=== PATIENT | female | born 1935 | race Caucasian/White ===

== ENCOUNTER 2016-10-29 10:45 | Emergency (ER) | payer OTHER ==
[~2016-10-29] VITALS: Ht 160 cm; Wt 81.6 kg
[~2016-10-29 10:45] MED LIST: ACET1TAB34 PO; ALPR0.25 PO; AMLO5TAB4 PO; ASPI325T4 PO; Bupropion Hcl PO; CARV3.122 PO; CARV6.25 PO; CYCL5TAB PO; DONE10TA7 PO; DONE5TAB31 PO; GLIP10TA13 PO; GLIP2.5T3 PO; GLIP5TAB10 PO; IBUP800T PO; LISI10TA2 PO; LORA-448 PO; METF10002 PO; NITR100C58 PO; OLAN5TAB5 SL; OMEP20TA PO; PIOG30TA PO; RISP2TAB3 PO; SIMV20TA PO; SITA100T PO; TRAZ50TA18 PO; [UNRECOGNIZED DRUG - CODE] PO
--- NOTE | 2016-10-29 11:08 | NUR ---
RAD PT TO RAD VIA STRETCHER
--- NOTE | 2016-10-29 11:18 | NUR ---
RAD PT BACK FROM CT
--- NOTE | 2016-10-29 11:22 | NUR ---
PAIN PT C/O PAIN ON HER LEFT SIDE. DR. BURCIAGA INFORMED. NO NEW ORDERS RECEIVED
--- NOTE | 2016-10-29 11:34 | DIREP ---
PROCEDURE:CT HEAD OR BRAIN W/O CONTRAST COMPARISON:[facility], CT, CT HEAD BRAIN W/O CONTRAST, 06/05/2016, 11:15 AM. INDICATIONS:head injury TECHNIQUE:CT images were created without intravenous contrast. FINDINGS: VENTRICLES:There is moderate prominence of the ventricles and cortical sulci consistent with age related involutional changes. CEREBRUM:There are low density changes in the periventricular white matter. CEREBELLUM:Negative. BRAINSTEM:Negative. BASAL CISTERNS:Negative. HEMORRHAGE:No MASS LESION:No ACUTE INFARCT:No SKULL:Normal. SINUSES:Normal. OTHER:None CONCLUSION: 1. No acute abnormalities. 2. Cerebral atrophy. 3. Microvascular ischemic white matter changes. Dictated by: Coy Davis M.D. on 10/29/2016 at 11:31 AM
--- NOTE | 2016-10-29 11:39 | DIREP ---
PROCEDURE:CT CERVICAL SPINE WITHOUT CONTRAST TECHNIQUE:Axial cuts were obtained through the cervical spine. The images were viewed at bone and soft tissue settings. Sagittal and coronal reconstructions are provided. COMPARISON:None. INDICATIONS:trauma FINDINGS: ALIGNMENT:Normal. VERTEBRAE:Vertebral body heights are normal. PARASPINAL AREA:Normal. OTHER:No additional findings. CERVICAL DISC LEVELS C2-C3:Normal. C3-C4:Mild hypertrophic changes of the facet joints. C4-C5:Prominent hypertrophic changes of the left uncovertebral and facet joints with severe neural foraminal narrowing. C5-C6:Mild decreased disc height and large anterior osteophytes. Moderate central disc protrusion. C6-C7:Moderate decreased disc height and large anterior osteophytes. C7-T1:Normal. CONCLUSION:No acute cervical spine abnormalities. Degenerative changes as described above. Dictated by: Coy Davis M.D. on 10/29/2016 at 11:34 AM
--- NOTE | 2016-10-29 11:43 | ER.PDOC ---
General Chief Complaint: Trauma Stated Complaint: FALL Time seen by MD: 11:15 Source: patient History of Present Illness Occurred: just prior to arrival Where: home Severity: moderate Injuries/Pain Location: head, neck, other ("pain all over") Context: Tripped Loss of Consciousness: No Loss of Consciousness Associated Symptoms: denies symptoms Allergies: Coded Allergies: No Known Allergies (Unverified , 07/01/16) MEDS Active Scripts Omeprazole 20 Mg Tablet.dr20 Mg PO DAILY ulcer prevention #30 TAB Ref 3 Prov:ADONAY VIERA MD 07/11/16 Nitrofurantoin Monohyd/M-Cryst (Macrobid 100 Mg Capsule)100 Mg [id number] Mg PO DAILY UTI suppression #90 CAPSULE Ref 1 Prov:ADONAY VIERA MD 07/11/16 Trazodone Hcl 50 Mg Iamuzs002 Mg PO HS #30 TABLET Prov:MARGO URBANO MD 07/11/16 Olanzapine (Zyprexa Zydis)5 Mg Tab.zprmuh99 Mg SL HS #30 Prov:MARGO URBANO MD 07/11/16 Donepezil Hcl (Aricept)5 Mg Xtrrif70 Mg PO HS #30 TABLET Prov:MARGO URBANO MD 07/11/16 Lisinopril 10 Mg Qaqvjm94 Mg PO DAILY HTN #30 TABLET Prov:ADONAY VIERA MD 06/22/16 Carvedilol 3.125 Mg Tablet3.125 Mg PO BID HTN #30 TABLET Prov:ADONAY VIERA MD 06/22/16 Amlodipine Besylate (Norvasc)5 Mg Tablet5 Mg PO DAILY HTN #30 TABLET Prov:ADONAY VIERA MD 06/22/16 Reported Medications Sitagliptin Phosphate (Januvia)100 Mg Tablet1 Tab PO DAILY #30 TAB Ref 5 09/18/16 Glipizide 5 Mg Tablet2.5 Mg PO BIDAC 09/18/16 Ibuprofen 800 Mg Tablet1 Tab PO Q8HR PRN PAIN #90 TAB Ref 1 06/07/16 Past Medical History Medical History: coronary artery disease, diabetes, GERD, hypertension Surgical History: cardiac cath, appendectomy, LMP (females 10-50): postmenopause Social History Smoking: non-smoker Alcohol Use: none Drug Use: none Review of Systems Constitutional: no symptoms reported Eyes: no symptoms reported Ears, Nose, Mouth, Throat: no symptoms reported Respiratory: no symptoms reported Cardiovascular: no symptoms reported Gastrointestinal: no symptoms reported Genitourinary: no symptoms reported Musculoskeletal: no symptoms reported Skin: no symptoms reported Physical Exam General Appearance: No Apparent Distress, WD/WN Head: Lacerations (over right eye) Eyes: bilateral eye PERRL, bilateral eye normal inspection Ears, Nose, Mouth, Throat: Hearing Grossly Normal Neck: Non-Tender Cardiovascular/Respiratory: Regular Rate, Rhythm, No M/R/G, Normal Peripheral Pulses Gastrointestinal: Normal Bowel Sounds Genital/Rectal: Normal Genital Exam Back: No CVA Tenderness, Other (tender all over, nothing focal and likely not new. 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 NML as Tested, No Motor/Sensory Deficits, Alert Skin: Normal Color Laceration/Wound Repair Laceration/Wound Repair : Wound Location: left eye/eyebrow Wound Length (cm): 4 Wound cleaned: hibiclens Anesthesia type: local Anesthesia: Lidocaine w/ Epi Wound's Depth, Shape: linear Wound Explored: clean Wound Repaired With: sutures Suture Size/Type: 5:0 Suture Style: interupted Number of Sutures: 5 Layer Closure?: No Results/Orders Results/Orders Administered Medications Medications (Trade) Dose Ordered Sig/Walker Route PRN Reason Start Time Stop Time Status Last Admin Dose Admin Tetanus/ Diphtheria Toxoids (Tetanus Diphtheria Toxoids) 0.5 ml STAT STAT IM 10/29/16 12:01 10/29/16 12:02 DC 10/29/16 11:50 Departure Time of Disposition: 12:16 Disposition: 01 HOME, SELF-CARE Impression: Primary Impression: Head injury Qualified Code: S09.90XA - Unspecified injury of head, initial encounter Additional Impressions: Cervical strain, acute Qualified Code: S16.1XXA - Strain of muscle, fascia and tendon at neck level, initial encounter Contusion, knee Qualified Code: S80.00XA - Contusion of unspecified knee, initial encounter Laceration of face Qualified Code: S01.81XA - Laceration without foreign body of other part of head, initial encounter Condition: Stable Referrals: EDENILSON HOUSTON MD (PCP) PRIMARY CARE PROVIDER DANNA BURCIAGA MD October 29, 2016 11:42
--- NOTE | 2016-10-29 11:45 | NUR ---
WOUND CARE INNER RIGHT EYE LACERATION CLEANSED WITH BETADINE AND IRRIGATED WITH NS, PT TOLERATED WELL. RIGHT OUTTER EYE LACERSTION CLEANSED WITH BETADINE.
[2016-10-29] MEDS ORDERED: XYLOCAINE 1%-EPI 1:100,000 ONE (11:46)
[2016-10-29] MEDS ORDERED: TRIPLE ANTIBIOTIC OINTMENT TP ONE (11:49)
[2016-10-29] MEDS ORDERED: TETANUS DIPHTHERIA TOXOIDS IM ONE (11:50)
[2016-10-29] MEDS ORDERED: TETANUS DIPHTHERIA TOXOIDS IM STA (12:01)
--- NOTE | 2016-10-29 12:05 | NUR ---
WOUND REPAIR DR BURCIAGA AT BEDSIDE INJECTED LIDOCIANE 1% WITH EPI TO INNER EYE 3CM LACERATION, 1CM OUTTER EYE LACERATION . WOUND REPAIR DONE WITH PROLENE 5.
--- NOTE | 2016-10-29 12:14 | NUR ---
DRESSING NEOSPORIN APPLIED TO LACERATIONS, COVERED WITH 4X4 AND SECURED WITH TAPE
[2016-10-29] MEDS ORDERED: ULTRAM ONE (12:16)
[2016-10-29] MEDS ORDERED: ULTRAM PO STA (12:18)
[2016-10-29 12:20] VITALS: BP 168/87
== END 2016-10-29 12:35 | disposition home or self-care (01) ==
LOC: EDUNIT# 10:45 → EDBD 10:45 → ER 10:45
DX: S01.112A Laceration without foreign body of left eyelid and periocular area, initial encounter (principal); S16.1XXA Strain of muscle, fascia and tendon at neck level, initial encounter; S80.00XA Contusion of unspecified knee, initial encounter; I25.10 Atherosclerotic heart disease of native coronary artery without angina pectoris; E11.9 Type 2 diabetes mellitus without complications; K21.9 Gastro-esophageal reflux disease without esophagitis; I10 Essential (primary) hypertension; Z95.818 Presence of other cardiac implants and grafts; Z79.899 Other long term (current) drug therapy; W01.0XXA Fall on same level from slipping, tripping and stumbling without subsequent striking against object, initial encounter; Y93.89 Activity, other specified; Y92.098 Other place in other non-institutional residence as the place of occurrence of the external cause; Y99.8 Other external cause status
CPT/HCPCS: 12013; 70450; 72125; 90471; 90714; 99285

== ENCOUNTER 2016-12-08 16:23 | Emergency (ER) | payer OTHER ==
[~2016-12-08] VITALS: Ht 160 cm; Wt 81.6 kg
--- NOTE | 2016-12-08 16:59 | ER.PDOC ---
General Chief Complaint: General Complaint Stated Complaint: LOW B/P,HIGH SUGAR,SLURRING WORDS Time seen by MD: 16:57 Source: family Exam Limitations: no limitations History of Present Illness Initial Comments No acting right. Confused. Character of AMS: confused Usually: orientedx3 Allergies: Coded Allergies: No Known Allergies (Unverified , 07/01/16) Home Meds Active Scripts Omeprazole (OMEPRAZOLE) 20 Mg Tablet.dr, 20 MG PO DAILY for ulcer prevention, # 30 TAB 3 Refills Prov:ADONAY VIERA MD 07/11/16 Nitrofurantoin Monohyd/M-Cryst (MACROBID 100 MG CAPSULE) 100 Mg Capsule, 100 MG PO DAILY for UTI suppression, #90 CAPSULE 1 Refill Prov:ADONAY VIERA MD 07/11/16 Trazodone Hcl (TRAZODONE HCL) 50 Mg Tablet, 100 MG PO HS, #30 TABLET Prov:MARGO URBANO MD 07/11/16 Olanzapine (ZYPREXA ZYDIS) 5 Mg Tab.rapdis, 10 MG SL HS, #30 Prov:MARGO URBANO MD 07/11/16 Donepezil Hcl (ARICEPT) 5 Mg Tablet, 10 MG PO HS, #30 TABLET Prov:MARGO URBANO MD 07/11/16 Lisinopril (LISINOPRIL) 10 Mg Tablet, 10 MG PO DAILY for HTN, #30 TABLET Prov:ADONAY VIERA MD 06/22/16 Carvedilol (CARVEDILOL) 3.125 Mg Tablet, 3.125 MG PO BID for HTN, #30 TABLET Prov:ADONAY VIERA MD 06/22/16 Amlodipine Besylate (NORVASC) 5 Mg Tablet, 5 MG PO DAILY for HTN, #30 TABLET Prov:ADONAY VIERA MD 06/22/16 Reported Medications Sitagliptin Phosphate (JANUVIA) 100 Mg Tablet, 1 TAB PO DAILY, #30 TAB 5 Refills 09/18/16 Glipizide (GLIPIZIDE) 5 Mg Tablet, 2.5 MG PO BIDAC, TABLET 09/18/16 Ibuprofen (IBUPROFEN) 800 Mg Tablet, 1 TAB PO Q8HR Y for PAIN, #90 TAB 1 Refill 06/07/16 Past Medical History Medical History: diabetes, hypertension Surgical History: appendectomy, Social History Smoking: non-smoker Alcohol Use: none Drug Use: none Review of Systems Constitutional: no symptoms reported Respiratory: no symptoms reported Cardiovascular: no symptoms reported Gastrointestinal: no symptoms reported Genitourinary: no symptoms reported Musculoskeletal: no symptoms reported Psychiatric/Neurological: see HPI All Other Systems: Reviewed and Negative Physical Exam General Appearance: alert, no distress HEENT: no apparent trauma, EOM's intact, no nystagmus, PERRL, ENT inspection nml, pharynx nml, airway intact, oral exam nml Neuro/Psych: oriented x3, nml speech/cognition, nml mood/affect Cranial Nerves: nml as tested Peripheral Exam: motor nml, sensation nml, reflexes nml Neck: supple, non-tender, no carotid bruit Respiratory: no resp distress, breath sounds nml CVS: reg rate & rhythm, heart sounds nml Abdomen: non-tender, no organomegaly, no distention Skin: color nml, no rash, warm/dry Results/Orders Results/Orders Laboratory Tests Test 12/08/16 17:00 12/08/16 17:32 White Blood Count 6.9 10^3/uL (4.5-11.0) Red Blood Count 4.21 10^6/uL (4.00-5.20) Hemoglobin 12.9 g/dL (12.0-15.0) Hematocrit 37.2 % (36.0-46.0) Mean Corpuscular Volume 88.4 fL (78-100) Mean Corpuscular Hemoglobin 30.6 pg (26-34) Mean Corpuscular Hemoglobin Concent 34.7 g/dL (33-37) Red Cell Distribution Width 13.0 % (11.5-14.5) Platelet Count 154 10^3/uL (150-400) Mean Platelet Volume 12.0 fL (7.8-11.0) Neutrophils (%) (Auto) 67.6 % (41.0-85.0) Lymphocytes (%) (Auto) 24.5 % (24.0-44.0) Monocytes (%) (Auto) 6.5 % (5.0-12.0) Neutrophils # (Auto) 4.7 10^3/uL (1.8-7.7) Lymphocytes # (Auto) 1.7 10^3/uL (1.0-4.8) Monocytes # (Auto) 0.5 10^3/uL (0.3-0.8) Absolute Immature Granulocyte (auto 0.01 10^3 u/L (0-2) Eosinophils % 1.0 % (0.0-5.0) Basophils % 0.3 % (0.0-0.2) Basophils # 0.0 10^3/uL (0.0-0.1) Eosinophil Count 0.1 10^3/uL (0.0-0.2) Prothrombin Time 10.7 SEC (9.8-11.9) Prothromb Time International Ratio 1.0 Activated Partial Thromboplast Time 24.3 SEC (24.67-30.72) Sodium Level 137 mmol/L (132-145) Potassium Level 4.4 mmol/L (3.6-5.2) Chloride Level 104.0 mmol/L (96-109) Carbon Dioxide Level 23.8 mmol/L (20.0-32) Anion Gap 13.6 Blood Urea Nitrogen 12 mg/dL (7-18) Creatinine 1.16 mg/dL (0.59-1.40) Estimated GFR () 54.5 BUN/Creatinine Ratio 10.0 Glucose Level 292 mg/dL (70-110) Calculated Osmolality 294.2 Calcium Level 8.8 mg/dL (8.4-10.5) Total Bilirubin 0.3 mg/dL (0.2-1.0) Aspartate Amino Transf (AST/SGOT) 20 U/L (0-35) Alanine Aminotransferase (ALT/SGPT) 25 U/L (12-78) Alkaline Phosphatase 67 U/L (50-136) Total Creatine Kinase 108 U/L (26-192) Creatine Kinase MB 1.1 ng/mL (0.5-3.6) Troponin I < 0.02 ng/mL (0.00-0.05) Total Protein 7.0 g/dL (6.4-8.2) Albumin 3.5 g/dL (3.4-5.0) Globulin 3.5 Percent Immature Gran (Cell Imm) 0.10 % (0.00-0.50) Urine Collection Type Unknown Urine Color Yellow (YELLOW) Urine Appearance Slightly hazy (CLEAR) Urine Bilirubin Negative MG/DL (NEGATIVE) Urine Ketones Negative (NEGATIVE) Urine Specific [place] 1.015 (1.005-1.035) Urine pH 5 (5.0-6.0) Urine Protein 15 mg/dl (NEGATIVE) Urine Urobilinogen Normal (NEGATIVE) Urine Nitrate Negative (NEGATIVE) Urine Leukocyte Esterase 25 /ul trace (NEGATIVE) Urine Blood Negative (NEGATIVE) Urine RBC None seen RBC/HPF (NONE Urine WBC 2-5 WBC/HPF (0-2) Urine Squamous Epithelial Cells Few #/HPF (FEW) Urine Bacteria Few (NONE SEEN) Urine Glucose 50 (NEGATIVE) EKG/XRAY/CT/US XRAY: chest (Nothing acute) CT Comments: No acute intracranial abnormality Departure Time of Disposition: 17:55 Disposition: 01 HOME, SELF-CARE Impression: Primary Impression: UTI (urinary tract infection) Additional Impression: Dementia Condition: Stable Referrals: EDENILSON HOUSTON MD (PCP) PRIMARY CARE PROVIDER Additional Instructions: Continue Bactrim at home F/U with your PCP in 3-4 days Problem Qualifiers Primary Impression: UTI (urinary tract infection) Urinary tract infection type: site unspecified Hematuria presence: without hematuria Qualified Codes: N39.0 - Urinary tract infection, site not specified Additional Impression: Dementia Dementia type: unspecified type Dementia behavioral disturbance: without behavioral disturbance Qualified Codes: F03.90 - Unspecified dementia without behavioral disturbance GONZALES METCALF MD Dec 08, 2016 16:58
[2016-12-08 17:12] LABS: BASOPHIL % 0.3 % (0.0-0.2); EOSINOPHIL # 0.1 10^3/uL (0.0-0.2); HEMATOCRIT 37.2 % (36.0-46.0); HEMOGLOBIN 12.9 g/dL (12.0-15.0); LYMPHOCYTES # 1.7 10^3/uL (1.0-4.8); LYMPHOCYTES % 24.5 % (24.0-44.0); MEAN CELL HGB 30.6 pg (26-34); MEAN CELL HGB CONCENTRATION 34.7 g/dL (33-37); MEAN CORP VOLUME 88.4 fL (78-100); MONOCYTES # 0.5 10^3/uL (0.3-0.8); MONOCYTES % 6.5 % (5.0-12.0); NEUTROPHIL # 4.7 10^3/uL (1.8-7.7); NEUTROPHILS % 67.6 % (41.0-85.0); WHITE BLOOD CELL 6.9 10^3/uL (4.5-11.0)
[2016-12-08 17:38] LABS: BILIRUBIN,URINE NEGATIVE (NEGATIVE); UROBILINOGEN,URINE NORMAL (NEGATIVE)
[2016-12-08 17:39] LABS: ALANINE AMINOTRANSFERASE 25 U/L (12-78); ALKALINE PHOSPHATASE 67 U/L (50-136); ASPARTATE AMINO TRANSFERASE 20 U/L (0-35); CALCIUM 8.8 mg/dL (8.4-10.5); CARBON DIOXIDE 23.8 mmol/L (20.0-32); GLUCOSE 292 mg/dL (70-110)
--- NOTE | 2016-12-08 17:39 | DIREP ---
PROCEDURE:CHEST 1 VIEW COMPARISON:[facility], CR, XRAY CHEST SINGLE VW, 07/01/2016, 06:33 PM. INDICATIONS:AMS FINDINGS: LUNGS/PLEURA:Chronic interstitial changes. Shallow lung volumes. No confluent area of consolidation. No evidence of pleural effusion. VASCULATURE:Within normal limits. CARDIAC:No cardiomegaly. LINDA/MEDIASTINUM:No visible mass or adenopathy. BONES:No acute fracture. OTHER:No additional findings. CONCLUSION: 1. No acute cardiopulmonary changes. Dictated by: Bin Ray M.D. on 12/08/2016 at 05:37 PM
--- NOTE | 2016-12-08 17:41 | DIREP ---
PROCEDURE:CT HEAD OR BRAIN W/O CONTRAST COMPARISON:[facility], CT, CT HEAD BRAIN W/O CONTRAST, 10/29/2016, 11:09 AM. INDICATIONS:AMS TECHNIQUE:CT images were created without intravenous contrast. FINDINGS: VENTRICLES: There is generalized prominence of the ventricles, sulci, and cisterns. CEREBRUM: There is ill-defined low density in the white matter of both cerebral hemispheres. There is no CT evidence of mass, hemorrhage, or acute infarct. CEREBELLUM: Negative. BRAINSTEM: Negative. BASAL CISTERNS: Negative. SKULL: Negative. SINUSES: Negative. OTHER: None. CONCLUSION: 1. Generalized atrophy. 2. Chronic white matter ischemic change. 3. There is no CT evidence of intracranial mass, hemorrhage, or acute infarct. 4. There is no significant change as compared with the previous examination. Dictated by: Bin Ray M.D. on 12/08/2016 at 05:39 PM
[2016-12-08 17:47] LABS: APPEARANCE,URINE SLIGHTLY HAZY (CLEAR); UA COLOR YELLOW (YELLOW)
[2016-12-08 18:12] VITALS: BP 147/66
== END 2016-12-08 18:13 | disposition home or self-care (01) ==
LOC: ER 16:23
DX: F03.90 Unspecified dementia, unspecified severity, without behavioral disturbance, psychotic disturbance, mood disturbance, and anxiety (principal); N39.0 Urinary tract infection, site not specified; E11.9 Type 2 diabetes mellitus without complications; I10 Essential (primary) hypertension; R79.1 Abnormal coagulation profile; Z79.899 Other long term (current) drug therapy
CPT/HCPCS: 36415; 70450; 71010; 80053; 81000; 82550; 82553; 82948; 84484; 85025; 85610; 85730; 87086; 93005; 99285

== ENCOUNTER 2017-01-08 14:34 | Emergency (ER) | payer OTHER ==
[~2017-01-08] VITALS: Ht 160 cm; Wt 81.6 kg
--- NOTE | 2017-01-08 14:37 | NUR ---
ARRIVAL PATIENT ARRIVED TO ED2 VIA GURNEY BY [facility], C/O OF CHEST PAIN TODAY, HOME HEALTH TO SEE PATIENT AND SUGGESTED TO FAMILY TO BRING TO ED FOR FURTHER EVAL. NO DISTRESS NOTED, DENIES PAIN AT THIS TIME.
--- NOTE | 2017-01-08 14:53 | ER.PDOC ---
General Chief Complaint: Chest Pain-Cardiac Nature Stated Complaint: CP Time seen by MD: 14:51 Source: patient Exam Limitations: no limitations History of Present Illness Initial Comments Chest pain about 1-2 hours ago, no pain now. Did not take any Nitroglycerine. Pain subsided on its own. Severity/Quality: moderate, dull Radiation: no radiation Activities at Onset: none Nitro Today/Relief: No Nitro Taken Today Aspirin Today: 325 mg x 1, Provided By EMS Associated Symptoms: denies symptoms Allergies: Coded Allergies: No Known Allergies (Unverified , 07/01/16) Home Meds Active Scripts Omeprazole (OMEPRAZOLE) 20 Mg Tablet.dr, 20 MG PO DAILY for ulcer prevention, # 30 TAB 3 Refills Prov:ADONAY VIERA MD 07/11/16 Nitrofurantoin Monohyd/M-Cryst (MACROBID 100 MG CAPSULE) 100 Mg Capsule, 100 MG PO DAILY for UTI suppression, #90 CAPSULE 1 Refill Prov:ADONAY VIERA MD 07/11/16 Trazodone Hcl (TRAZODONE HCL) 50 Mg Tablet, 100 MG PO HS, #30 TABLET Prov:MARGO URBANO MD 07/11/16 Olanzapine (ZYPREXA ZYDIS) 5 Mg Tab.rapdis, 10 MG SL HS, #30 Prov:MARGO URBANO MD 07/11/16 Donepezil Hcl (ARICEPT) 5 Mg Tablet, 10 MG PO HS, #30 TABLET Prov:MARGO URBANO MD 07/11/16 Lisinopril (LISINOPRIL) 10 Mg Tablet, 10 MG PO DAILY for HTN, #30 TABLET Prov:ADONAY VIERA MD 06/22/16 Carvedilol (CARVEDILOL) 3.125 Mg Tablet, 3.125 MG PO BID for HTN, #30 TABLET Prov:ADONAY VIERA MD 06/22/16 Amlodipine Besylate (NORVASC) 5 Mg Tablet, 5 MG PO DAILY for HTN, #30 TABLET Prov:ADONAY VIERA MD 06/22/16 Reported Medications Sitagliptin Phosphate (JANUVIA) 100 Mg Tablet, 1 TAB PO DAILY, #30 TAB 5 Refills 09/18/16 Glipizide (GLIPIZIDE) 5 Mg Tablet, 2.5 MG PO BIDAC, TABLET 09/18/16 Ibuprofen (IBUPROFEN) 800 Mg Tablet, 1 TAB PO Q8HR Y for PAIN, #90 TAB 1 Refill 06/07/16 Past Medical History Medical History: cardiac problems, hypertension Surgical History: appendectomy, Social History Smoking: non-smoker Alcohol Use: none Drug Use: none Constitutional: no symptoms reported Respiratory: no symptoms reported Cardiovascular: see HPI Gastrointestinal: no symptoms reported Genitourinary: no symptoms reported Musculoskeletal: no symptoms reported Skin: no symptoms reported All Other Systems: Reviewed and Negative Physical Exam General Appearance: No Apparent Distress, WD/WN Neck: Non-Tender, Full Range of Motion, Supple, Normal Inspection Respiratory: chest non-tender, lungs clear, normal breath sounds, no respiratory distress, no accessory muscle use Cardiovascular: Normal Peripheral Pulses, Regular Rate, Rhythm, No Edema, No Gallop, No JVD, No Murmur Gastrointestinal: Normal Bowel Sounds, No Organomegaly, No Pulsatile Mass, Non Tender, Soft Extremities: Normal Range of Motion, Non-Tender, Normal Inspection, No Pedal Edema, No Calf Tenderness, Normal Capillary Refill 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 Voices no complaints. Spoke to Dr. Treadwell, no concerns at this willis, patient should be okay to go home. Second set of cardiac enzymes after 2 hours is unremarkable. EKG/XRAY/CT/US XRAY: chest (Nothing acute) Consult/PCP Time Consult/PCP Called: 16:04 Consult/PCP: Eben #2 EKG: NSR EKG Comments: Unchanged Course Blood Pressure Systolic: 121 Blood Pressure Diastolic: 71 Blood Pressure Mean: 88 Departure Time of Disposition: 16:05 Disposition: 01 HOME, SELF-CARE Impression: Primary Impression: Nonspecific chest pain Condition: Improved Referrals: EDENILSON TREADWELL MD (PCP) PRIMARY CARE PROVIDER Additional Instructions: F/U with your PCP in 2-3 days GONZALES METCALF MD Jan 08, 2017 14:53
[2017-01-08 15:02] LABS: BASOPHIL % 0.4 % (0.0-0.2); EOSINOPHIL # 0.2 10^3/uL (0.0-0.2); EOSINOPHIL % 2.4 % (0.0-5.0); HEMATOCRIT 38.2 % (36.0-46.0); HEMOGLOBIN 13.2 g/dL (12.0-15.0); LYMPHOCYTES # 1.9 10^3/uL (1.0-4.8); LYMPHOCYTES % 26.1 % (24.0-44.0); MEAN CELL HGB 30.7 pg (26-34); MEAN CELL HGB CONCENTRATION 34.6 g/dL (33-37); MEAN CORP VOLUME 88.8 fL (78-100); MEAN PLATELET VOLUME 11.8 fL (7.8-11.0); MONOCYTES # 0.7 10^3/uL (0.3-0.8); MONOCYTES % 10.2 % (5.0-12.0); NEUTROPHIL # 4.4 10^3/uL (1.8-7.7); NEUTROPHILS % 60.8 % (41.0-85.0); RED CELL DISTRIBUTION WIDTH 13.1 % (11.5-14.5); WHITE BLOOD CELL 7.2 10^3/uL (4.5-11.0)
[2017-01-08 15:41] LABS: ALANINE AMINOTRANSFERASE 22 U/L (12-78); ALKALINE PHOSPHATASE 64 U/L (50-136); ASPARTATE AMINO TRANSFERASE 21 U/L (0-35); CALCIUM 9.1 mg/dL (8.4-10.5); CARBON DIOXIDE 22.8 mmol/L (20.0-32); GLUCOSE 180 mg/dL (70-110)
--- NOTE | 2017-01-08 15:43 | DIREP ---
PROCEDURE:CHEST 1 VIEW COMPARISON:[facility], CR, XRAY CHEST SINGLE VW, 12/08/2016, 04:34 PM. INDICATIONS:Chest pain FINDINGS: LUNGS/PLEURA:Low lung volumes. Mild interstitial prominence is likely accentuated by the degree of inspiration. No suspicious airspace consolidation, pleural effusion or pneumothorax. VASCULATURE:Normal. Unremarkable pulmonary vasculature. CARDIAC:Normal. No cardiac silhouette abnormality or cardiomegaly. MEDIASTINUM:Mediastinal contours are within normal limits with calcifications of the aorta. BONES:Degenerative changes of the shoulders and spine. OTHER:Negative. CONCLUSION: 1. Low lung volumes. No acute cardiopulmonary abnormality. Dictated by: Richy Quiñonez M.D. On 01/08/2017 at 03:41 PM
--- NOTE | 2017-01-08 15:54 | NUR ---
DR CELSO MAYA ON PHONE WITH DR HOUSTON
[2017-01-08 18:26] VITALS: BP 186/87
== END 2017-01-08 18:20 | disposition home or self-care (01) ==
LOC: ER 14:34 → EDBD 14:34 → ER 18:20
DX: R07.9 Chest pain, unspecified (principal); I10 Essential (primary) hypertension; Z79.899 Other long term (current) drug therapy; Z79.1 Long term (current) use of non-steroidal anti-inflammatories (NSAID)
CPT/HCPCS: 36415; 71010; 80053; 82550; 82553; 83880; 84484; 85025; 85379; 85610; 85730; 93005; 99285

== ENCOUNTER 2017-03-01 12:21 | Emergency (ER) | payer OTHER ==
[~2017-03-01] VITALS: Ht 160 cm; Wt 78.9 kg
--- NOTE | 2017-03-01 12:41 | ER.PDOC ---
General Chief Complaint: General Complaint Stated Complaint: ALTERED MENTAL STATUS Time seen by MD: 12:40 History of Present Illness Initial Comments decreased loc dnr Timing/Duration: 1 hour Character of AMS: decreased responsiveness Context: chronic dementia Decreased Ability to Stand: weak Prior symptoms/Treatment: Similar symptoms previous Allergies: Coded Allergies: No Known Allergies (Unverified , 07/01/16) Home Meds Active Scripts Omeprazole (OMEPRAZOLE) 20 Mg Tablet.dr, 20 MG PO DAILY for ulcer prevention, # 30 TAB 3 Refills Prov:ADONAY VIERA MD 07/11/16 Nitrofurantoin Monohyd/M-Cryst (MACROBID 100 MG CAPSULE) 100 Mg Capsule, 100 MG PO DAILY for UTI suppression, #90 CAPSULE 1 Refill Prov:ADONAY VIERA MD 07/11/16 Trazodone Hcl (TRAZODONE HCL) 50 Mg Tablet, 100 MG PO HS, #30 TABLET Prov:MARGO URBANO MD 07/11/16 Olanzapine (ZYPREXA ZYDIS) 5 Mg Tab.rapdis, 10 MG SL HS, #30 Prov:MARGO URBANO MD 07/11/16 Donepezil Hcl (ARICEPT) 5 Mg Tablet, 10 MG PO HS, #30 TABLET Prov:MARGO URBANO MD 07/11/16 Lisinopril (LISINOPRIL) 10 Mg Tablet, 10 MG PO DAILY for HTN, #30 TABLET Prov:ADONAY VIERA MD 06/22/16 Carvedilol (CARVEDILOL) 3.125 Mg Tablet, 3.125 MG PO BID for HTN, #30 TABLET Prov:ADONAY VIERA MD 06/22/16 Amlodipine Besylate (NORVASC) 5 Mg Tablet, 5 MG PO DAILY for HTN, #30 TABLET Prov:ADONAY VIERA MD 06/22/16 Reported Medications Sitagliptin Phosphate (JANUVIA) 100 Mg Tablet, 1 TAB PO DAILY, #30 TAB 5 Refills 09/18/16 Glipizide (GLIPIZIDE) 5 Mg Tablet, 2.5 MG PO BIDAC, TABLET 09/18/16 Ibuprofen (IBUPROFEN) 800 Mg Tablet, 1 TAB PO Q8HR Y for PAIN, #90 TAB 1 Refill 06/07/16 Past Medical History Medical History: diabetes, hypertension Surgical History: appendectomy, LMP (females 10-50): postmenopause Family History Significant Family History: no pertinent family hx Social History Smoking: non-smoker Alcohol Use: none Drug Use: none Review of Systems Constitutional: denies fever All Other Systems: Reviewed and Negative Physical Exam General Appearance: lethargic Respiratory: no resp distress, breath sounds nml CVS: reg rate & rhythm, heart sounds nml Abdomen: non-tender, no organomegaly, no distention Skin: color nml, no rash, warm/dry Extremities: non-tender, nml ROM, no pedal edema Results/Orders Results/Orders Laboratory Tests Test 03/01/17 12:50 03/01/17 14:01 White Blood Count 7.6 10^3/uL (4.5-11.0) Red Blood Count 4.57 10^6/uL (4.00-5.20) Hemoglobin 13.6 g/dL (12.0-15.0) Hematocrit 39.9 % (36.0-46.0) Mean Corpuscular Volume 87.3 fL (78-100) Mean Corpuscular Hemoglobin 29.8 pg (26-34) Mean Corpuscular Hemoglobin Concent 34.1 g/dL (33-37) Red Cell Distribution Width 13.1 % (11.5-14.5) Platelet Count 137 10^3/uL (150-400) Mean Platelet Volume 12.1 fL (7.8-11.0) Neutrophils (%) (Auto) 55.0 % (41.0-85.0) Lymphocytes (%) (Auto) 30.7 % (24.0-44.0) Monocytes (%) (Auto) 10.2 % (5.0-12.0) Neutrophils # (Auto) 4.2 10^3/uL (1.8-7.7) Lymphocytes # (Auto) 2.3 10^3/uL (1.0-4.8) Monocytes # (Auto) 0.8 10^3/uL (0.3-0.8) Absolute Immature Granulocyte (auto 0.02 10^3 u/L (0-2) Eosinophils % 3.3 % (0.0-5.0) Basophils % 0.5 % (0.0-0.2) Basophils # 0.0 10^3/uL (0.0-0.1) Eosinophil Count 0.3 10^3/uL (0.0-0.2) Sodium Level 144 mmol/L (132-145) Potassium Level 3.9 mmol/L (3.6-5.2) Chloride Level 106.0 mmol/L (96-109) Carbon Dioxide Level 25.5 mmol/L (20.0-32) Anion Gap 16.4 Blood Urea Nitrogen 11 mg/dL (7-18) Creatinine 1.12 mg/dL (0.59-1.40) Estimated GFR () 56.8 (>/=60) BUN/Creatinine Ratio 9.0 Glucose Level 178 mg/dL (70-110) Calcium Level 9.1 mg/dL (8.4-10.5) Total Bilirubin 0.6 mg/dL (0.2-1.0) Aspartate Amino Transf (AST/SGOT) 23 U/L (0-35) Alanine Aminotransferase (ALT/SGPT) 32 U/L (12-78) Alkaline Phosphatase 69 U/L (50-136) Total Protein 7.4 g/dL (6.4-8.2) Albumin 3.3 g/dL (3.4-5.0) Globulin 4.1 Percent Immature Gran (Cell Imm) 0.30 % (0.00-0.50) Urine Collection Type UNKNOWN Urine Color YELLOW (YELLOW) Urine Appearance CLEAR (CLEAR) Urine Bilirubin NEGATIVE MG/DL (NEGATIVE) Urine Ketones NEGATIVE (NEGATIVE) Urine Specific [place] 1.015 (1.005-1.035) Urine pH 6 (5.0-6.0) Urine Protein NEGATIVE (NEGATIVE) Urine Urobilinogen NORMAL (NEGATIVE) Urine Nitrate NEGATIVE (NEGATIVE) Urine Leukocyte Esterase NEGATIVE (NEGATIVE) Urine Blood NEGATIVE (NEGATIVE) Urine Glucose NORMAL (NEGATIVE) Progress Progress labs wnl Departure Time of Disposition: 15:06 Disposition: 01 HOME, SELF-CARE Impression: Primary Impression: Abdominal pain Condition: Stable Referrals: EDENILSON HOUSTON MD (PCP) PRIMARY CARE PROVIDER JEREMY SAMSON Dr., MD Mar 01, 2017 12:41
[2017-03-01 12:55] LABS: BASOPHIL % 0.5 % (0.0-0.2); EOSINOPHIL # 0.3 10^3/uL (0.0-0.2); EOSINOPHIL % 3.3 % (0.0-5.0); HEMOGLOBIN 13.6 g/dL (12.0-15.0); LYMPHOCYTES # 2.3 10^3/uL (1.0-4.8); LYMPHOCYTES % 30.7 % (24.0-44.0); MEAN CELL HGB 29.8 pg (26-34); MEAN CELL HGB CONCENTRATION 34.1 g/dL (33-37); MEAN CORP VOLUME 87.3 fL (78-100); MEAN PLATELET VOLUME 12.1 fL (7.8-11.0); MONOCYTES # 0.8 10^3/uL (0.3-0.8); MONOCYTES % 10.2 % (5.0-12.0); NEUTROPHIL # 4.2 10^3/uL (1.8-7.7); RED CELL DISTRIBUTION WIDTH 13.1 % (11.5-14.5); WHITE BLOOD CELL 7.6 10^3/uL (4.5-11.0)
[2017-03-01 13:18] LABS: CALCIUM 9.1 mg/dL (8.4-10.5); CARBON DIOXIDE 25.5 mmol/L (20.0-32)
[2017-03-01 14:31] LABS: BILIRUBIN,URINE NEGATIVE (NEGATIVE); UROBILINOGEN,URINE NORMAL (NEGATIVE)
[2017-03-01 14:32] LABS: APPEARANCE,URINE CLEAR (CLEAR); UA COLOR YELLOW (YELLOW)
[2017-03-01 16:19] VITALS: BP 149/69
== END 2017-03-01 15:25 | disposition home or self-care (01) ==
LOC: ER 12:21 → EDBD 12:21 → ER 15:25
DX: R10.9 Unspecified abdominal pain (principal); E11.9 Type 2 diabetes mellitus without complications; F03.90 Unspecified dementia, unspecified severity, without behavioral disturbance, psychotic disturbance, mood disturbance, and anxiety; I10 Essential (primary) hypertension; Z79.899 Other long term (current) drug therapy
CPT/HCPCS: 36415; 80053; 81002; 85025; 93005; 99285

== ENCOUNTER → 2017-03-28 | Outpatient (CLI) | payer OTHER ==
--- NOTE | 2017-03-28 14:30 | DIREP ---
PROCEDURE:XR BARIUM SWALLOW - MODIFIED COMPARISON:None. INDICATIONS: Dysphagia TECHNIQUE:A comprehensive fluoroscopic examination of swallowing was performed, utilizing a variety of barium consistencies. FINDINGS: ORAL PHASE:Normal. PHARYNGEAL PHASE:Mild residue was seen in the vallecula which cleared with repeat swallows. ASPIRATION:No penetration or aspiration was observed throughout the study. OTHER:Negative. FLUORO TIME: 2.6 minutes CONCLUSION:There are findings consistent with mild oropharyngeal dysphagia. No penetration or aspiration was observed throughout the study. Please also refer to speech pathology report. Dictated by: Christian Keenan M.D. on 03/28/2017 at 02:43 PM
== END | disposition home or self-care (01) ==
LOC: RAD 17:19
PROVIDERS: ATTEND Internal Medicine
DX: R13.12 Dysphagia, oropharyngeal phase (principal)
CPT/HCPCS: 74230; 92611; G8996-CI; G8997-CI; G8998-CI

== ENCOUNTER → 2017-05-02 | Outpatient (CLI) | payer OTHER ==
[~2017-05-02] MED LIST changes: +ASPI325T14 PO; -ASPI325T4 PO; -DONE5TAB31 PO; +DONE5TAB53 PO; +IBUP-1131 PO; -IBUP800T PO; -OMEP20TA PO; +OMEP20TA9 PO; -PIOG30TA PO; +PIOG30TA27 PO
[2017-05-02 13:46] LABS: BILIRUBIN,URINE NEGATIVE (NEGATIVE); UROBILINOGEN,URINE NORMAL (NEGATIVE)
[2017-05-02 13:48] LABS: APPEARANCE,URINE HAZY (CLEAR); UA COLOR STRAW (YELLOW)
== END | disposition home or self-care (01) ==
LOC: NPLAB 13:22
PROVIDERS: ATTEND Internal Medicine
DX: R82.90 Unspecified abnormal findings in urine (principal)
CPT/HCPCS: 81000; 87086

== ENCOUNTER 2017-05-26 21:07 | Emergency (ER) | payer OTHER ==
[~2017-05-26] VITALS: Ht 160 cm; Wt 86.2 kg
[2017-05-26] MEDS ORDERED: INSU100V13 SQ (21:29)
[2017-05-26] MEDS ORDERED: EXEN2VIA SQ (21:29)
--- NOTE | 2017-05-26 21:42 | ER.PDOC ---
General Chief Complaint: General Complaint Stated Complaint: LOW BP TRAVEL OUT OF US: No Time seen by MD: 21:30 Source: family Exam Limitations: no limitations History of Present Illness Initial Comments 81 year old white male with history of hypertension was brought in by daughter as blood pressure tonight registered at 117/65 and HR of 63. Daughter is concerned of hypotension. No other symptoms except for self limiting chest heaviness. No chest pain Timing/Duration: 1/2 hour Associated Symptoms: denies symptoms Allergies: Coded Allergies: No Known Allergies (Unverified , 07/01/16) Home Meds Active Scripts Omeprazole (OMEPRAZOLE) 20 Mg Tablet.dr, 20 MG PO DAILY for ulcer prevention, # 30 TAB 3 Refills Prov:ADONAY VIERA MD 07/11/16 Trazodone Hcl (TRAZODONE HCL) 50 Mg Tablet, 100 MG PO HS, #30 TABLET Prov:MAGRO URBANO MD 07/11/16 Olanzapine (ZYPREXA ZYDIS) 5 Mg Tab.rapdis, 10 MG SL HS, #30 Prov:MARGO URBANO MD 07/11/16 Donepezil Hcl (ARICEPT) 5 Mg Tablet, 10 MG PO HS, #30 TABLET Prov:MARGO URBANO MD 07/11/16 Lisinopril (LISINOPRIL) 10 Mg Tablet, 10 MG PO DAILY for HTN, #30 TABLET Prov:ADONAY VIERA MD 06/22/16 Carvedilol (CARVEDILOL) 3.125 Mg Tablet, 3.125 MG PO BID for HTN, #30 TABLET Prov:ADONAY VIERA MD 06/22/16 Reported Medications Exenatide Microspheres (BYDUREON) 2 Mg Vial, 2 MG SQ WEEKLY, VIAL 05/26/17 Insulin Detemir (LEVEMIR) 100 Unit/1 Ml Vial, 20 UNIT SQ HS, VIAL 05/26/17 Ibuprofen (IBUPROFEN) 800 Mg Tablet, 1 TAB PO Q8HR Y for PAIN, #90 TAB 1 Refill 06/07/16 Discontinued Reported Medications Sitagliptin Phosphate (JANUVIA) 100 Mg Tablet, 1 TAB PO DAILY, #30 TAB 5 Refills 09/18/16 Glipizide (GLIPIZIDE) 5 Mg Tablet, 2.5 MG PO BIDAC, TABLET 09/18/16 Discontinued Scripts Nitrofurantoin Monohyd/M-Cryst (MACROBID 100 MG CAPSULE) 100 Mg Capsule, 100 MG PO DAILY for UTI suppression, #90 CAPSULE 1 Refill Prov:ADONAY VIERA MD 07/11/16 Amlodipine Besylate (NORVASC) 5 Mg Tablet, 5 MG PO DAILY for HTN, #30 TABLET Prov:ADONAY VIERA MD 06/22/16 Past Medical History Medical History: diabetes, other (dementia) Surgical History: appendectomy, LMP (females 10-50): postmenopause Social History Smoking: non-smoker Alcohol Use: none Drug Use: none Review of Systems Constitutional: denies no symptoms reported, denies see HPI, denies chills, denies diaphoresis, denies fever, denies malaise, denies weakness, denies other EENTM: no symptoms reported Respiratory: denies no symptoms reported, denies see HPI, denies cough, denies orthopnea, denies shortness of breath, denies stridor, denies wheezing, denies other Cardiovascular: see HPI Gastrointestinal: denies no symptoms reported, denies see HPI, denies abdominal pain, denies constipation, denies diarrhea, denies nausea, denies vomiting, denies other Genitourinary: denies no symptoms reported, denies see HPI, denies discharge, denies dysuria, denies frequency, denies hematuria, denies pain, denies other Musculoskeletal: denies no symptoms reported, denies see HPI, denies back pain , denies gout, denies joint pain, denies joint swelling, denies muscle pain, denies muscle stiffness, denies neck pain, denies other Skin: denies no symptoms reported, denies see HPI, denies change in color, denies change in hair/nails, denies dryness, denies lesions, denies lumps, denies rash, denies other Psychiatric/Neurological: other (dementia) Hematologic/Lymphatic: denies no symptoms reported, denies see HPI, denies anemia, denies blood clots, denies easy bleeding, denies easy bruising, denies swollen glands, denies other Physical Exam General Appearance: No Apparent Distress, WD/WN EENT: eyes nml inspection, nml ENT inspection, pharynx nml Neck: Non-Tender, Full Range of Motion, Supple, Normal Inspection Respiratory: chest non-tender, lungs clear, normal breath sounds CVS: reg rate & rhythm, no murmur Gastrointestinal: Normal Bowel Sounds Rectal: Normal Exam Extremities: Normal Range of Motion Skin: Normal Color Course Blood Pressure Systolic: 167 Blood Pressure Diastolic: 103 Blood Pressure Mean: 124 Departure Time of Disposition: 21:41 Impression: Primary Impression: Essential (primary) hypertension Condition: Stable Referrals: ADONAY VIERA MD (PCP) PRIMARY CARE PROVIDER Additional Instructions: Educated daughter about the normal bp range RTER prn Follow up PCP watch salt intake JANNET WALTERS MD May 26, 2017 21:42
--- NOTE | 2017-05-26 21:49 | PCM.EKG ---
[facility] Test Date: 2017-05-26 Test Time: 21:21:22 Pat Name: TENZIN CHURCH Department: Room: Gender: F Hand Icer: STEW : 1935 Requested By: JANNET WALTERS Order Number: [id number] Reading MD: Stevie Bravo Measurements Intervals [place] Rate: 67 P: 66 ID: [id number] QRS: 14 QRSD: 86 T: 79 QT: 398 QTc: 420 Interpretive Statements Normal sinus rhythm Low voltage QRS Borderline ECG No previous ECG available for comparison Electronically Signed On 05-27-2017 10:04:21 CHUCK WAGON DRIVER by Stevie Bravo Please click the below link to view image of tracing.
[2017-05-26 22:13] VITALS: BP 157/72
== END 2017-05-26 22:00 ==
LOC: ER 21:07
DX: I10 Essential (primary) hypertension (principal); E11.9 Type 2 diabetes mellitus without complications; F03.90 Unspecified dementia, unspecified severity, without behavioral disturbance, psychotic disturbance, mood disturbance, and anxiety; Z79.4 Long term (current) use of insulin; Z79.899 Other long term (current) drug therapy
CPT/HCPCS: 93005; 99283

== ENCOUNTER → 2017-06-07 | Outpatient (CLI) | payer OTHER ==
[~2017-06-07] MED LIST changes: +EXEN2VIA SQ; +INSU100V13 SQ
[2017-06-07 11:18] LABS: BILIRUBIN,URINE NEGATIVE (NEGATIVE); UROBILINOGEN,URINE NORMAL (NEGATIVE)
[2017-06-07 11:44] LABS: APPEARANCE,URINE CLEAR (CLEAR); UA COLOR YELLOW (YELLOW)
== END | disposition home or self-care (01) ==
LOC: NPLAB 11:03
PROVIDERS: ATTEND Internal Medicine
DX: N39.0 Urinary tract infection, site not specified (principal)
CPT/HCPCS: 81000; 87086

== ENCOUNTER → 2017-06-07 | Outpatient (CLI) | payer MEDICARE, OTHER ==
--- NOTE | 2017-06-07 12:59 | DIREP ---
PROCEDURE:XRAY HUMERUS MIN 2 VWS-LT COMPARISON:None. INDICATIONS:PAIN IN LEFT ARM FINDINGS: BONES:Normal. JOINTS:Normal. SOFT TISSUES:Normal. OTHER:No additional findings. CONCLUSION:No acute radiographic abnormality. Dictated by: Mannie Garza M.D. on 06/07/2017 at 12:58 PM
--- NOTE | 2017-06-07 13:02 | DIREP ---
PROCEDURE:XRAY HIP MIN 2VW-LT COMPARISON:None. INDICATIONS:PAIN IN LEFT HIP FINDINGS: BONES:Subchondral acetabular sclerosis. JOINTS:Severe medial joint space loss. SOFT TISSUES:Normal. OTHER:No additional findings. CONCLUSION:Degenerative joint space loss. Dictated by: Mannie Garza M.D. on 06/07/2017 at 12:58 PM
== END | disposition home or self-care (01) ==
LOC: RAD 11:48
PROVIDERS: ATTEND Internal Medicine
DX: M16.12 Unilateral primary osteoarthritis, left hip (principal); M79.602 Pain in left arm; W19.XXXA Unspecified fall, initial encounter
CPT/HCPCS: 73502; 73060-LT

== ENCOUNTER 2017-07-26 22:07 | Emergency (ER) | payer OTHER ==
[~2017-07-26] VITALS: Ht 160 cm; Wt 72.6 kg
[2017-07-26 22:54] VITALS: BP 165/72
--- NOTE | 2017-07-26 23:38 | ER.PDOC ---
General Chief Complaint: Eye Problems Stated Complaint: R EYE ISSUE,L FOOT SWELLING Time seen by MD: 23:34 Source: patient Exam Limitations: no limitations History of Present Illness Initial Comments Blurry vision in the right eye today. Denies eye pain or discharge. left ankle looking swollen without pain. Timing/Duration: abrupt Associated Symptoms: decreased vision Location: right eye Severity: moderate Allergies: Coded Allergies: No Known Allergies (Unverified , 07/01/16) Home Meds Active Scripts Omeprazole (OMEPRAZOLE) 20 Mg Tablet.dr, 20 MG PO DAILY for ulcer prevention, # 30 TAB 3 Refills Prov:ADONAY VIERA MD 07/11/16 Trazodone Hcl (TRAZODONE HCL) 50 Mg Tablet, 100 MG PO HS, #30 TABLET Prov:MARGO URBANO MD 07/11/16 Olanzapine (ZYPREXA ZYDIS) 5 Mg Tab.rapdis, 10 MG SL HS, #30 Prov:MARGO URBANO MD 07/11/16 Donepezil Hcl (ARICEPT) 5 Mg Tablet, 10 MG PO HS, #30 TABLET Prov:MARGO URBANO MD 07/11/16 Lisinopril (LISINOPRIL) 10 Mg Tablet, 10 MG PO DAILY for HTN, #30 TABLET Prov:ADONAY VIERA MD 06/22/16 Carvedilol (CARVEDILOL) 3.125 Mg Tablet, 3.125 MG PO BID for HTN, #30 TABLET Prov:ADONAY VIERA MD 06/22/16 Reported Medications Exenatide Microspheres (BYDUREON) 2 Mg Vial, 2 MG SQ WEEKLY, VIAL 05/26/17 Insulin Detemir (LEVEMIR) 100 Unit/1 Ml Vial, 20 UNIT SQ HS, VIAL 05/26/17 Ibuprofen (IBUPROFEN) 800 Mg Tablet, 1 TAB PO Q8HR Y for PAIN, #90 TAB 1 Refill 06/07/16 Past Medical History Medical History: diabetes, GERD, hypertension Surgical History: appendectomy, LMP (females 10-50): postmenopause Social History Smoking: non-smoker Alcohol Use: none Drug Use: none Constitutional: no symptoms reported Eyes: see HPI Nose: no symptoms reported Mouth: no symptoms reported Throat: no symptoms reported Respiratory: no symptoms reported Cardiovascular: no symptoms reported Gastrointestinal: no symptoms reported Musculoskeletal: see HPI All Other Systems: Reviewed and Negative Physical Exam General Appearance: alert, no distress Visual Acuity: no globe trauma Eyelid: nml inspection Conjunctiva/Sclera: nml inspection Corneas: nml inspection EOM's: intact, no nystagmus Pupils: PERRL Head/ENT: nml inspection, pharynx nml Skin Exam: Normal Color, Warm/Dry Neck/Back: nml inspection, painless ROM Resp/CVS: no resp distress, lungs clear, heart sounds nml, reg. rate & rhythm Abdomen: non-tender, no organomegaly NEURO/PSYCH: oriented X3, mood/effect nml Comments Both ankles are normal. No swelling. Course Blood Pressure Systolic: 165 Blood Pressure Diastolic: 72 Blood Pressure Mean: 103 Departure Time of Disposition: 23:37 Disposition: 01 HOME, SELF-CARE Impression: Primary Impression: Blurred vision, right eye Condition: Stable Referrals: ADONAY VIERA MD (PCP) PRIMARY CARE PROVIDER Additional Instructions: F/U with Public Health Professor tomorrow. Duration or Time Spent with Pa: 30 mins GONZALES METCALF MD Jul 26, 2017 23:38
[2017-07-27 00:09] VITALS: BP 165/72
== END 2017-07-26 23:50 | disposition home or self-care (01) ==
LOC: ER 22:07
DX: H53.8 Other visual disturbances (principal); E11.9 Type 2 diabetes mellitus without complications; I10 Essential (primary) hypertension; K21.9 Gastro-esophageal reflux disease without esophagitis; Z79.4 Long term (current) use of insulin; Z79.899 Other long term (current) drug therapy
CPT/HCPCS: 99284

== ENCOUNTER 2017-08-04 14:30 | Inpatient (IN) | payer OTHER ==
[~2017-08-04] VITALS: Ht 160 cm; Wt 83.9 kg
[2017-08-04 15:02] VITALS: BP 148/65
--- NOTE | 2017-08-04 15:29 | ER.PDOC ---
General Chief Complaint: Medical Clearance Stated Complaint: MEDICAL CLEARANCE Time seen by MD: 15:28 Source: family Exam Limitations: clinical condition History of Present Illness Initial Comments Patient brought to the ED for medical clearance for psych admit. Patient confused. Going outside unclothed. Timing/Duration: unknown Character of AMS: disoriented, confused Usually: alert, disorient. to time Prior symptoms/Treatment: Similar symptoms previous Allergies: Coded Allergies: No Known Allergies (Unverified , 07/01/16) Home Meds Active Scripts Omeprazole (OMEPRAZOLE) 20 Mg Tablet.dr, 20 MG PO DAILY for ulcer prevention, # 30 TAB 3 Refills Prov:ADONAY VIERA MD 07/11/16 Trazodone Hcl (TRAZODONE HCL) 50 Mg Tablet, 100 MG PO HS, #30 TABLET Prov:MARGO URBANO MD 07/11/16 Olanzapine (ZYPREXA ZYDIS) 5 Mg Tab.rapdis, 10 MG SL HS, #30 Prov:MARGO URBANO MD 07/11/16 Donepezil Hcl (ARICEPT) 5 Mg Tablet, 10 MG PO HS, #30 TABLET Prov:MARGO URBANO MD 07/11/16 Lisinopril (LISINOPRIL) 10 Mg Tablet, 10 MG PO DAILY for HTN, #30 TABLET Prov:ADONAY VIERA MD 06/22/16 Carvedilol (CARVEDILOL) 3.125 Mg Tablet, 3.125 MG PO BID for HTN, #30 TABLET Prov:ADONAY VIERA MD 06/22/16 Reported Medications Exenatide Microspheres (BYDUREON) 2 Mg Vial, 2 MG SQ WEEKLY, VIAL 05/26/17 Insulin Detemir (LEVEMIR) 100 Unit/1 Ml Vial, 20 UNIT SQ HS, VIAL 05/26/17 Ibuprofen (IBUPROFEN) 800 Mg Tablet, 1 TAB PO Q8HR Y for PAIN, #90 TAB 1 Refill 06/07/16 Vital Signs First Vital Signs Date Time Temp Pulse Resp B/P (MAP) Pulse Ox O2 Delivery O2 Flow Rate FiO2 08/04/17 14:59 97.6 81 16 100 08/04/17 15:02 148/65 (92) Room Air Last Vital Signs Date Time Temp Pulse Resp B/P (MAP) Pulse Ox O2 Delivery O2 Flow Rate FiO2 08/04/17 15:02 97.6 81 16 148/65 (92) 100 Room Air Past Medical History Medical History: diabetes, hypertension Surgical History: appendectomy, LMP (females 10-50): postmenopause Social History Smoking: non-smoker Alcohol Use: none Drug Use: none Reviewed Nursing Reviewed: Vital Signs, Abn. Noted, Nursing Assessment Results/Orders Results/Orders Laboratory Tests Test 08/04/17 15:29 08/04/17 16:00 Urine Collection Type VOID Urine Color YELLOW (YELLOW) Urine Appearance CLEAR (CLEAR) Urine Bilirubin NEGATIVE MG/DL (NEGATIVE) Urine Ketones NEGATIVE (NEGATIVE) Urine Specific [place] 1.005 (1.005-1.035) Urine pH 7 (5.0-6.0) Urine Protein NEGATIVE (NEGATIVE) Urine Urobilinogen NORMAL (NEGATIVE) Urine Nitrate NEGATIVE (NEGATIVE) Urine Leukocyte Esterase 100/ul 1+ (NEGATIVE) Urine Blood NEGATIVE (NEGATIVE) Urine WBC 0-2 WBC/HPF (0-2) Urine Squamous Epithelial Cells RARE #/HPF (FEW) Urine Bacteria RARE (NONE SEEN) Urine Glucose NORMAL (NEGATIVE) Urine Opiates (GC/MS) NEGATIVE (NEGATIVE) Urine Amphetamine Qualitative NEGATIVE (NEGATIVE) Urine Barbiturates, Qualitative NEGATIVE (NEGATIVE) Urine Phencyclidine (PCP) (TLC) NEGATIVE (NEGATIVE) Urine Benzodiazepines, Qualitative NEGATIVE (NEGATIVE) Ur Tetrahydrocannabinol (THC) Scrn NEGATIVE (NEGATIVE) White Blood Count 8.8 10^3/uL (4.5-11.0) Red Blood Count 4.86 10^6/uL (4.00-5.20) Hemoglobin 14.0 g/dL (12.0-15.0) Hematocrit 43.6 % (36.0-46.0) Mean Corpuscular Volume 89.7 fL (78-100) Mean Corpuscular Hemoglobin 28.8 pg (26-34) Mean Corpuscular Hemoglobin Concent 32.1 g/dL (33-37) Red Cell Distribution Width 13.9 % (11.5-14.5) Platelet Count 190 10^3/uL (150-400) Mean Platelet Volume 12.2 fL (7.8-11.0) Neutrophils (%) (Auto) 64.6 % (41.0-85.0) Lymphocytes (%) (Auto) 26.4 % (24.0-44.0) Monocytes (%) (Auto) 7.7 % (5.0-12.0) Neutrophils # (Auto) 5.7 10^3/uL (1.8-7.7) Lymphocytes # (Auto) 2.3 10^3/uL (1.0-4.8) Monocytes # (Auto) 0.7 10^3/uL (0.3-0.8) Absolute Immature Granulocyte (auto 0.01 10^3 u/L (0-2) Eosinophils % 0.7 % (0.0-5.0) Basophils % 0.5 % (0.0-0.2) Basophils # 0.0 10^3/uL (0.0-0.1) Eosinophil Count 0.1 10^3/uL (0.0-0.2) Prothrombin Time 10.7 SEC (9.8-11.9) Prothrombin Time INR (Non-Therap) 1.1 Activated Partial Thromboplast Time 21.8 SEC (24.67-30.72) Sodium Level 143 mmol/L (132-145) Potassium Level 4.1 mmol/L (3.6-5.2) Chloride Level 106.0 mmol/L (96-109) Carbon Dioxide Level 25.9 mmol/L (20.0-32) Anion Gap 15.2 Blood Urea Nitrogen 13 mg/dL (7-18) Creatinine 1.07 mg/dL (0.59-1.40) Estimated GFR () 59.9 (>/=60) BUN/Creatinine Ratio 12.0 Glucose Level 141 mg/dL (70-110) Hemoglobin A1c 6.0 % (4.2-6.2) Calcium Level 9.2 mg/dL (8.4-10.5) Total Bilirubin 0.5 mg/dL (0.2-1.0) Aspartate Amino Transf (AST/SGOT) 23 U/L (0-35) Alanine Aminotransferase (ALT/SGPT) 22 U/L (12-78) Alkaline Phosphatase 72 U/L (50-136) Total Creatine Kinase 90 U/L (26-192) Creatine Kinase MB 0.7 ng/mL (0.5-3.6) Troponin I < 0.02 ng/mL (0.00-0.05) C-Reactive Protein 0.10 mg/dL (0.00-5.00) Pro-B-Type Natriuretic Peptide 141 pg/mL (0-450) Total Protein 7.6 g/dL (6.4-8.2) Albumin 3.5 g/dL (3.4-5.0) Globulin 4.1 Triglycerides Level 108 mg/dL (20-200) Cholesterol Level 221 mg/dL (120-240) HDL Cholesterol 44 mg/dL (32-96) Vitamin B12 Level 901 pg/mL (193-986) Thyroid Stimulating Hormone (TSH) 1.637 mIU/mL (0.358-3.740) Percent Immature Gran (Cell Imm) 0.10 % (0.00-0.50) EKG/XRAY/CT/US EKG: NSR, CA (150), QRS (86), nonspecific ST T wave chg EKG Comments: LAD, old Ant infarct Departure Time of Disposition: 20:00 Disposition: 09 ADMITTED INPATIENT Impression: Primary Impression: Acute confusion Condition: Stable Referrals: ADONAY VIERA MD (PCP) PRIMARY CARE PROVIDER Duration or Time Spent with Pa: JERICHO MCKNIGHT MD Aug 04, 2017 15:29
--- NOTE | 2017-08-04 15:59 | DIREP ---
PROCEDURE:CHEST 1 VIEW COMPARISON:[facility], CR, XRAY CHEST SINGLE VW, 01/08/2017, 02:43 PM. INDICATIONS:confusion FINDINGS: LUNGS/PLEURA:No significant pulmonary parenchymal abnormalities. No effusions. VASCULATURE:Normal. Unremarkable pulmonary vasculature. CARDIAC:Normal. No cardiac silhouette abnormality or cardiomegaly. MEDIASTINUM:Normal. No visible mass or adenopathy. BONES:Normal. No fracture or visible bony lesion. OTHER:Negative. CONCLUSION:Normal examination. There is no significant change as compared with the previous examination. Dictated by: Thiago Velazquez MD on 08/04/2017 at 03:58 PM
[2017-08-04 16:01] LABS: BASOPHIL % 0.5 % (0.0-0.2); EOSINOPHIL # 0.1 10^3/uL (0.0-0.2); EOSINOPHIL % 0.7 % (0.0-5.0); LYMPHOCYTES # 2.3 10^3/uL (1.0-4.8); LYMPHOCYTES % 26.4 % (24.0-44.0); MEAN CELL HGB 28.8 pg (26-34); MEAN CELL HGB CONCENTRATION 32.1 g/dL (33-37); MEAN CORP VOLUME 89.7 fL (78-100); MEAN PLATELET VOLUME 12.2 fL (7.8-11.0); MONOCYTES # 0.7 10^3/uL (0.3-0.8); MONOCYTES % 7.7 % (5.0-12.0); NEUTROPHIL # 5.7 10^3/uL (1.8-7.7); NEUTROPHILS % 64.6 % (41.0-85.0); RED CELL DISTRIBUTION WIDTH 13.9 % (11.5-14.5); WHITE BLOOD CELL 8.8 10^3/uL (4.5-11.0)
--- NOTE | 2017-08-04 16:01 | PCM.EKG ---
[facility] Test Date: 2017-08-04 Test Time: 16:00:58 Pat Name: TENZIN CHURCH Department: Room: 214 Gender: F Seasonal Package Handler: SANDHYA : 1935 Requested By: JERICHO JIMENEZ Order Number: [id number] Reading MD: Kirk METCALF Measurements Intervals [place] Rate: 68 P: 50 DC: 150 QRS: -40 QRSD: 86 T: 66 QT: 416 QTc: 442 Interpretive Statements Normal sinus rhythm Left axis deviation Anterolateral infarct, age undetermined Abnormal ECG Compared to ECG 05/26/2017 21:21:22 Left-axis deviation now present Myocardial infarct finding now present Electronically Signed On 08-06-2017 0:36:05 [employer]ES [employer] by Kirk METCALF Please click the below link to view image of tracing.
[2017-08-04 17:05] LABS: ALANINE AMINOTRANSFERASE(ML) 22 U/L (12-78); ALKALINE PHOSPHATASE 72 U/L (50-136); ASPARTATE AMINO TRANSFERASE 23 U/L (0-35); CALCIUM 9.2 mg/dL (8.4-10.5); CARBON DIOXIDE 25.9 mmol/L (20.0-32); CHOLESTEROL 221 mg/dL (120-240); GLUCOSE 141 mg/dL (70-110); HDL CHOLESTEROL 44 mg/dL (32-96)
[2017-08-04 17:48] LABS: APPEARANCE,URINE CLEAR (CLEAR); BILIRUBIN,URINE NEGATIVE (NEGATIVE); UA COLOR YELLOW (YELLOW); UROBILINOGEN,URINE NORMAL (NEGATIVE)
[2017-08-04 17:55] LABS: WBC,URINE 0-2 WBC/HPF (0-2)
--- NOTE | 2017-08-04 20:00 | NUR ---
Dispatch Spoke to PD dispatch to get in contact with the Ethnoarchaeology Professor to sign court documents
--- NOTE | 2017-08-04 20:20 | NUR ---
Marine Fitter Alis Marine Fitter Alis here to sign court papers
[2017-08-04 20:50] VITALS: BP 163/81
[2017-08-04] MEDS ORDERED: ZYPREXA ZYDIS SL STA (21:39)
[2017-08-04] MEDS ORDERED: DESYREL PO STA (21:40)
[2017-08-04] MEDS ORDERED: ARICEPT PO STA (21:41)
[2017-08-04] MEDS ORDERED: ARTIFICIAL TEARS BOTH EYES PRN (22:00)
--- NOTE | 2017-08-04 22:00 | NUR ---
arrival to unit PT. ARRIVED ON UNIT AT 2043 VIA W/C, ACCOMPANIED BY MARIA ANTONIA Turner CNA,PT.'S DAUGHTER DERRICK . PT. EXHIBITED HALLUCINATIONS HEARING MUSIC AND SEEING THINGS NOT THERE. ORIENTED TO NAME NOT YEAR OR MONTH. DR. GONZÁLES SKYPED WITH PT. AND DAUGHTER. DR. GREEN ON UNIT AND VISITED WITH PT. DR. GREEN STATED TO START ACCU CHECKS ,INSULIN AND THE OTHER MEDICATIONS HE ORDERED TOMORROW. PT. IS VERY [place]. HAS UNSTEADY GAIT AND DAUGHTER STATED SHE WILL BRING PT.'S DENTURES , WALKER AND CLOTHES TOMORROW.PT. ATE 90% OF DINNER MEAL THAT WAS PROVIDED. FLAT AFFECT. BED ALARM AND YELLOW NON SKID SOCKS IN USE AT THIS TIME. BED IN LOW POSITION. STAFF HAS WALKED WITH PT. WHEN AMBULATING. PT. HAS HX. OF FALLS AT HOME BUT DAUGHTER REPORTS SHE HAS NOT FALLEN RECENTLY.
--- NOTE | 2017-08-05 04:47 | NUR ---
PIRP- P-RISK FOR FALLS,ALTERED THOUGHT PROCESS I- PROVIDE SAFE AND SUPPORTIVE ENVIRONMENT, PROVIDE 1:1 INTERVENTION ALLOWING PT. TO EXPRESS THOUGHTS AND FEELINGS. PROVIDE MEDICATIONS ORDERED. R- PT. TOOK MEDICATION ORDERED, HAS RESTED IN BED WITH EYES CLOSED 1.50 HOURS OF THIS TIME. PT. HAS TALKED TO SOMEONE NOT THERE AT TIMES AND EXHIBITED SEEING THINGS THAT ARE NOT THERE.STAFF HAS WALKED WITH PT. WHEN SHE AMBULATES. P- WILL CONTINUE WITH CURRENT TX. PLAN.
--- NOTE | 2017-08-05 06:13 | NUR ---
FLU VACCINE PT.'S DAUGHTER STATES SHE DOESN'T KNOW IF PT. HAS HAD FLU VACCINE THIS FALL.
[2017-08-05] MEDS ORDERED: PROTONIX PO ONE (07:05)
[2017-08-05] MEDS ORDERED: THERA ONE (07:05)
[2017-08-05] MEDS ORDERED: ZYPREXA ZYDIS ONE ×2 (07:05→19:00)
[2017-08-05] MEDS ORDERED: COREG ONE (07:05)
[2017-08-05] MEDS ORDERED: ZESTRIL ONE (07:06)
[2017-08-05 07:46] VITALS: BP 172/81
[2017-08-05] MEDS: FLONASE NS SCH (09:04)
--- NOTE | 2017-08-05 09:06 | NUR ---
OT EVALUATION Information gathered from pt EMR to assist with evaluation process. Evaluation to be completed by Matt LR this date. Signed: 08/06/17 at 906 by LOLA Christina OT Addendum: 08/06/17 at 906 by LOLA Christina OT Amended: Links added.
[2017-08-05] MEDS: ZYPREXA ZYDIS SL SCH ×3 (09:07→21:04)
[2017-08-05] MEDS: COREG PO SCH ×3 (09:07→21:05)
[2017-08-05] MEDS: ZESTRIL PO SCH (09:07)
[2017-08-05] MEDS: THERA PO SCH (09:07)
[2017-08-05] MEDS: PROTONIX PO SCH (09:07)
--- NOTE | 2017-08-05 11:33 | CNH ---
DATE OF CONSULTATION: 08/04/2017 ADMITTING PHYSICIAN: Dr. Orellana in the [facility] REASON FOR CONSULTATION: Concurrent medical care. HISTORY OF PRESENT ILLNESS: The patient is a 81-year-old female who was brought in from home because she was having a psychotic episode and was running around naked in the neighborhood. Her daughter states that while she is on her medications she is calm and collected. However, there have been issues about getting her medications lately and she started to have increasing psychosis. When I saw her, she was sitting down, and I asked her if she had any pain anywhere. She denied any pain currently. The only thing that she complains about is her vision. She gets eye surgery from Dr. 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 No fevers, no chills, no cough. Her appetite has been fair. PAST MEDICAL HISTORY: Significant for dementia with behavioral disturbances, type 2 diabetes mellitus, hypertension, GERD and DJD. PAST SURGICAL HISTORY: , appendectomy. SOCIAL HISTORY: She does not smoke. No illicit drugs, no alcohol reported. FAMILY HISTORY: Asked and noncontributory for this admission. MEDICATIONS: She is on include omeprazole, Zydis, Aricept, lisinopril, carvedilol, Levemir and multivitamin. PHYSICAL EXAMINATION: VITAL SIGNS: On admission, temperature is 97.6, pulse rate 68, respirations 16, blood pressure 148/65, O2 sats of 100%. My physical exam is as follows: GENERAL: She is in no acute distress. She is smiling. She is pleasant to me. HEENT: Oropharynx is clear. NECK: Supple. HEART: S1, S2 audible. LUNGS: Clear bilaterally. ABDOMEN: Good bowel sounds, soft abdomen. NEUROLOGIC: She does stand up and she supports her own weight. She does walk around. DTRs are 2+ times 4 extremities. Intact sensation noted times 4 extremities. Motor strength is normal times 4 extremities. LABORATORY DATA: Labs were drawn. She had a CBC that was normal. Coags were normal. Chemistry panel looked good. TSH is 1.64. Vitamin B12 level is 901. Cardiac enzymes negative x 1. UA has had 1+ esterase, and rare bacteria. Urine drug screen was negative. IMAGING STUDIES: Chest x-ray did not show any acute abnormalities. ASSESSMENT: We have this elderly female with increasing dementia with behavioral disturbances with underlying diabetes, hypertension. I found out that she is on Amoxil every night for UTI prophylaxis and I will continue this. I will continue her home medications. Follow her sugars. She is a DNR and I will honor this in the hospital and have Psychiatry manage her psychosis. Kitty Conner MD DR: JESICA/jewel JOB# [id number]
--- NOTE | 2017-08-05 11:34 | NUR ---
AM SNACK NO SNACKS AVAILABLE. [employer] WAS CALLED TO BRING PER NEW POLICY. Addendum: 08/05/17 at 1135 by TIM Cota LVN Amended: Links added.
--- NOTE | 2017-08-05 15:08 | NUR ---
GMAS: 12/28 NO DEPRESSION Addendum: 08/06/17 at 1508 by Martha Ashley, JOVANY, FISH INSPECTOR SW Amended: Links added.
--- NOTE | 2017-08-05 15:09 | NUR ---
MMSE: 11/27 SEVERE IMPAIRMENT Addendum: 08/06/17 at 1509 by Martha Ashley, JOVANY, SUPERVISOR PIPELINE SW Amended: Links added.
--- NOTE | 2017-08-05 15:51 | NUR ---
SYMPTOMATOLOGY EVAL: PT PRESENTED TO ER WITH DAUGHTER DUE TO REPORTED HALLUCINATIONS, DELUSIONS, DISROBING AND GOING OUTSIDE AND TAKING BLANKETS TO THE CAR FOR UNKNOWN REASON. PT CURRENTLY LIVES HOME WITH DAUGHTER. RECOMMENDED INPATIENT TREATMENT ON THE CAUSEY [place] ON AN INVOLUNTARY STATUS AT THIS TIME. Addendum: 08/05/17 at 1554 by Martha Ashley, JOVANY, SYDNEY DIAZ Amended: Links added.
--- NOTE | 2017-08-05 15:57 | NUR ---
PIRP: P: ALTERED THOUGHT PROCESS. RISK FOR FALLS. I: Provide medications as ordered by physician and encourage patient to attend and participate in all groups. Encourage patient to wear non skid socks and let staff assist her with ambulation and transfers. Provide groups that require focus and concentration. Provide 1:1 allowing patient to voice concerns and feelings. R: Patient has taken all medications as ordered and has participated in all groups. This morning patient was singing to herself in her room and reaching for the ceiling as if hallucinating. P: Continue current plan of care.
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
[2017-08-05] MEDS ORDERED: DESYREL ONE (19:00)
[2017-08-05] MEDS ORDERED: ARICEPT ONE (19:00)
[2017-08-05] MEDS ORDERED: AMOXIL PO ONE (19:01)
[2017-08-05 19:42] VITALS: BP_SYST 125; BP_SYST 134; BP_DIAS 44; BP_DIAS 66
[2017-08-05] MEDS: LANTUS SQ SCH (21:00)
[2017-08-05] MEDS: AMOXIL PO SCH ×2 (21:00→21:04)
[2017-08-05] MEDS: ARICEPT PO SCH ×2 (21:00→21:04)
[2017-08-05] MEDS: DESYREL PO SCH ×2 (21:00→21:04)
--- NOTE | 2017-08-05 21:14 | NUR ---
medications unable to wake pt long enough to give HS medications,attempted multiple times to wake patient, RN notified that patient would only open eyes and then close them back, RN states to hold HS medications at this time
--- NOTE | 2017-08-06 03:36 | NUR ---
PIRP P: Altered thought process, Risk for falls. I: Provide medications as ordered by . Assist patient in differentiating between internal and external reality. Encourage attendance and participation of all groups. Provide 1:1 to allow patient to voice concerns and feelings. Monitor q 15 mins for safety and fall prevention compliance. R: Patient could not stay awake this shift, patient did not take her hs medications or have a snack. Daughter came to visit patient, she states she is happy patient is finally sleeping, also states it was a few nights since she has slept. No signs of hallucinations or taking clothes off this shift. Patient has yellow socks on and is checked q 15 mins as ordered. P: Continue current plan of care.
[2017-08-06 07:47] VITALS: BP 127/57
[2017-08-06] MEDS: FLONASE NS SCH (09:13)
[2017-08-06] MEDS: THERA PO SCH (09:15)
[2017-08-06] MEDS: ZESTRIL PO SCH (09:15)
[2017-08-06] MEDS: PROTONIX PO SCH (09:15)
[2017-08-06] MEDS: ZYPREXA ZYDIS SL SCH ×2 (09:15→20:30)
[2017-08-06] MEDS: COREG PO SCH ×2 (09:15→20:29)
--- NOTE | 2017-08-06 09:39 | NUR ---
FLU VACCINE FLU VACCINE GIVEN TO PT DUE TO UNKNOWN WHEN LAST FLU VACCINE WAS. INFLUENZA VACCINE FLUZONE HIGH DOSE GIVEN IN LEFT ARM. LOT NUMBER: [id number] MANUFACTURE: 3TIER. EXPIRATION DATE:
[2017-08-06] MEDS ORDERED: FLUZONE HIGH-DOSE 2017-18 SYR IM ONE (10:00)
--- NOTE | 2017-08-06 10:55 | NUR ---
PIRP: P: ALTERED THOUGHT PROCESS. RISK FOR FALLS. I: Provide medications as ordered by physician. Encourage attendance and participation of all groups. provide groups that require focus and concentration. Provide 1:1 allowing patient to voice feelings and concerns. Assist patient in differentiating between internal and external reality. Addendum: 08/06/17 at 1749 by Yue Suero RN - KEELEY HANNA R: Patient took all medications as ordered and she was present for most groups but had little participation. She was calm and cooperative. She did not hallucinate this shift. She was allowed to sleep in because of restless night. P: Continue current plan of care
[2017-08-06] MEDS ORDERED: AMOXIL PO ONE (18:27)
[2017-08-06 19:56] VITALS: BP 120/53
[2017-08-06] MEDS: AMOXIL PO SCH (20:30)
[2017-08-06] MEDS: DESYREL PO SCH (20:30)
[2017-08-06] MEDS: ARICEPT PO SCH (20:30)
[2017-08-06] MEDS: LANTUS SQ SCH (21:00)
--- NOTE | 2017-08-07 05:28 | NUR ---
PIRP P: Altered thought process, Risk for falls. I: Provide medications as ordered by Dr. Assist patient in differentiating between internal and external reality. Encourage attendance and participation of all groups. Provide 1:1 to allow patient to voice concerns and feelings. Monitor q 15 mins for safety and fall prevention compliance. R: Patient ate snack and watched some of fixer upper tv show. No signs of hallucinations or taking clothes off this shift. Patient has yellow socks on and is checked q 15 mins as ordered. Patient slept well this shift. P: Continue current plan of care.
[2017-08-07] MEDS: FLONASE NS SCH (09:00)
[2017-08-07] MEDS: PROTONIX PO SCH (09:38)
[2017-08-07] MEDS: THERA PO SCH (09:39)
[2017-08-07] MEDS: ZYPREXA ZYDIS SL SCH ×2 (09:39→20:30)
[2017-08-07] MEDS: ZESTRIL PO SCH (09:39)
[2017-08-07] MEDS: COREG PO SCH ×2 (09:40→20:31)
[2017-08-07 10:12] VITALS: BP 142/72
--- NOTE | 2017-08-07 14:26 | NUR ---
Co-Signature For MT Assessment I, YAS Keller am co-signing Music Therapy Activities Assessment with completion of this attached note. Signed: 08/07/17 at 1426 by YAS Keller OT Addendum: 08/07/17 at 1426 by YAS Keller OT Amended: Links added.
--- NOTE | 2017-08-07 18:16 | NUR ---
PIRP: P:ALTERED THOUGHT PROCESS. RISK FOR FALLS. I: Provide medications as ordered by physician. Encourage attendance and participation of all groups. Provide groups that require focus and concentration. Provide nonskid socks for prevention of falls. R: Patient has taken all medications and has participated in groups. Patient has worn nonskid socks and has not fallen. Patient has not hallucinated and has been calm and cooperative and pleasant. Daughter brought her hearing device and it is in the laundry room if needed. No aggressive behavior this shift. P: Continue current plan of care.
[2017-08-07 20:00] VITALS: BP 134/67
[2017-08-07] MEDS: ARICEPT PO SCH (20:30)
[2017-08-07] MEDS: DESYREL PO SCH (20:31)
[2017-08-07] MEDS: AMOXIL PO SCH (20:59)
[2017-08-07] MEDS: LANTUS SQ SCH (21:02)
--- NOTE | 2017-08-08 04:41 | NUR ---
PIRP- P- ALTERED THOUGHT PROCESS AND RISK FOR FALLS I-PROVIDE SAFE AND SUPPORTIVE ENVIRONMENT,PROVIDE MEDICATION ORDERED,Q 15 MIN. MONITORING. R- PT. WAS ORIENTED TO NAME NOT MONTH OR YEAR. EXHIBITED GRAND TRAVERSE. RATED DEPRESSION 5 AND ANXIETY O. ATTENDED GROUP AND PARTICIPATED IN ACTIVITY. TOOK MEDICATION ORDERED. ATE SNACKS. ASSISTED PT. WITH HS ADLS. HAS RESTED IN BED WITH EYES CLOSED FOR 1.50. HOURS THIS SHIFT. PT. REMAINS FALL RISK. P- WILL CONTINUE WITH CURRENT TX. PLAN.
--- NOTE | 2017-08-08 06:44 | PNH ---
DATE: 08/07/2017 PSYCHIATRIC PROGRESS NOTE TIME: 9:00-9:20. HISTORY OF PRESENT ILLNESS: The patient is a 81-year-old female with a history of delusional disorder, major depression, anxiety and dementia with behavioral disturbance. The patient has been in the [facility] on 2 previous occasions. She presented on this occasion with hallucinations, delusions, leaving her house, wandering, not wearing clothing, increased confusion, increased hallucinations, both auditory and visual. Cognitive decline consistent with an Alzheimer type dementia. Depressive symptoms with some depressed mood. The patient remains symptomatic at this time and is a candidate for ongoing hospitalization. OBJECTIVE: VITAL SIGNS: Blood pressure 142/72, pulse 75, respiration 19, temperature 97.2, oxygen saturation 94%. REVIEW OF SYSTEMS: HEENT: Normal. RESPIRATORY: No shortness of breath, coughing, or wheezing. CARDIAC: No chest pain or palpitations. GASTROINTESTINAL: No nausea, vomiting, diarrhea or constipation. GENITOURINARY: No difficulty with urination. EXTREMITIES: No swelling or edema. MUSCULOSKELETAL: No muscle pain. MENTAL STATUS EXAMINATION: Reveals an alert female with decreased psychomotor activity. Concentration and memory poor. Speech and language are normal. Orientation decreased. Intelligence is average. Mood assessed as depressed. Affect constricted. Insight and judgment are poor. Thought is illogical, positive delusional thought. ASSESSMENT: AXIS I: 1. Delusional disorder. 2. Major depressive disorder. 3. Generalized anxiety disorder. 4. Dementia with behavioral disturbance. AXIS II: Deferred. AXIS III: Refer to past medical history. TREATMENT PLAN: 1. The patient was admitted involuntarily to [facility] and is being observed closely. 2. She has been placed on medications, specifically Zyprexa 5 mg in the morning and 10 mg at bedtime, trazodone 100 mg at bedtime and Aricept 10 mg a day. 3. She is participating in groups, therapies and activities. 4. The patient will be discharged back to a fdc setting when it is felt she no longer represents any risk or danger to herself or others. Richy Dooley MD DR: ZAY/jewel JOB# [id number]
[2017-08-08 07:25] VITALS: BP 143/70
[2017-08-08] MEDS: PROTONIX PO SCH (08:59)
[2017-08-08] MEDS: COREG PO SCH ×2 (08:59→20:26)
[2017-08-08] MEDS: ZESTRIL PO SCH (08:59)
[2017-08-08] MEDS: THERA PO SCH (09:00)
[2017-08-08] MEDS: ZYPREXA ZYDIS SL SCH ×2 (09:00→20:27)
[2017-08-08] MEDS: FLONASE NS SCH (09:00)
--- NOTE | 2017-08-08 18:02 | NUR ---
PIRP P: Altered thought process, withdrawn I: Assess for hallucinations and delusions, re-orient to surroundings, assist with differentiating between internal and external reality, q15 min monitoring, provide safe and supportive environment, provide task-oriented activities, give medications as ordered, encourage social interaction, teach coping skills r/t hallucinations, give clear and simple instructions R: Pt has had flat, withdrawn affect throughout shift. Pt has come out to day room for group activities, but does not initiate interaction with staff and peers. Denies depression, anxiety, SI/HI. States, "No, I'm not really depressed. More disgusted, really. I was supposed to have that ear surgery today at the hospital." When pt asked if she felt upset about anything, pt stated, "I just get real lonely. My daughter is always in a giordano, so we don't communicate much." Pt reports that she "sometimes" hears people or sees people that aren't really there. Denies having had hallucinations since admitted to unit. P: Pt does not voice plan, has been cooperative with med and tx regimen. Reports she does not want to go to nursing facility, but that she would consider it regarding feeling "lonely" @ home.
[2017-08-08 19:15] VITALS: BP 124/60
[2017-08-08] MEDS: DESYREL PO SCH (20:26)
[2017-08-08] MEDS: AMOXIL PO SCH (20:27)
[2017-08-08] MEDS: ARICEPT PO SCH (20:27)
[2017-08-08] MEDS: LANTUS SQ SCH (20:53)
--- NOTE | 2017-08-09 04:57 | NUR ---
PIRP- P- RISK FOR FALLS AND ALTERED THOUGHT PROCESS I- PROVIDE SAFE AND SUPPORTIVE ENVIRONMENT,Q 15 MIN.,PROVIDE MEDICATION ORDERED. R- ORIENTED TIMES ONE TO NAME NOT YEAR OR MONTH. PT. STATED SHE IS DEPRESSED BUT COULD NOT RATE IS AND STATES SHE IS NOT ANXIOUS. PT. IS [place] AND USED THE AMPLIFIER . ATTENDED GROUP,PARTICIPATED IN ACTIVITY AND ATE SNACKS. TOOK MEDICATION ORDERED. REMAINS RISK FOR FALLS . WEARING YELLOW NON SKID SOCKS,BED IN LOW POSITION AND BED ALARM IN USE. PT. HAS RESTED IN BED WITH EYES CLOSED FOR 3 HOURS OF THIS TIME TONIGHT. PT. GOES TO BR FREQUENTLY. P- WILL CONTINUE WITH CURRENT TX. PLAN.
[2017-08-09 07:37] VITALS: BP 150/76
[2017-08-09] MEDS: THERA PO SCH (07:43)
[2017-08-09] MEDS: FLONASE NS SCH (07:44)
[2017-08-09] MEDS: COREG PO SCH ×2 (07:44→20:25)
[2017-08-09] MEDS: ZYPREXA ZYDIS SL SCH ×2 (07:44→20:25)
[2017-08-09] MEDS: PROTONIX PO SCH (07:44)
[2017-08-09] MEDS: ZESTRIL PO SCH (07:44)
--- NOTE | 2017-08-09 17:07 | NUR ---
PIRP P Delusional disorder I Group therapy to be encouraged. Moniter for decrease in delusions. Fall precautions to be in place for patient. Encourage Patient to verbalize thoughts / feelings. R Patient participated in group and enjoyed playing musical instruments and also did well playing dominoes. Patient observed for delusions and patient was heard talking to someone while she was laying down for nap this afternoon. Nonskid shoes on . Patient able to ambulate well and is able to walk faster with someone beside her for safety. Patient encouraged to verbalize any thoughts /feelings she was having. Patient is wearing amplifyed hearing device that helps with hearing and has done well. P Continue plan of care.
[2017-08-09 20:10] VITALS: BP 111/64
[2017-08-09] MEDS: ARICEPT PO SCH (20:24)
[2017-08-09] MEDS: AMOXIL PO SCH (20:24)
[2017-08-09] MEDS: DESYREL PO SCH (20:24)
[2017-08-09] MEDS: LANTUS SQ SCH (20:39)
--- NOTE | 2017-08-10 05:24 | NUR ---
PIRP P: Altered thought process, Risk for falls. I: Provide medications as ordered by . Assist patient in differentiating between internal and external reality. Encourage attendance and participation of all groups. Provide 1:1 to allow patient to voice concerns and feelings. Monitor q 15 mins for safety and fall prevention compliance. R: Patient refused to join group or have a snack, states she is too tired. Patient did not sleep well this shift, thinks she needs to get up and go to mu-ism, staff unable to redirect. Patient has yellow socks on and is checked q 15 mins as ordered. P: Continue current plan of care.
[2017-08-10 08:04] VITALS: BP 148/64
[2017-08-10] MEDS: ZYPREXA ZYDIS SL SCH ×2 (08:18→20:48)
[2017-08-10] MEDS: COREG PO SCH ×2 (08:18→20:49)
[2017-08-10] MEDS: THERA PO SCH (08:18)
[2017-08-10] MEDS: ZESTRIL PO SCH (08:18)
[2017-08-10] MEDS: PROTONIX PO SCH (08:18)
[2017-08-10] MEDS: FLONASE NS SCH (08:19)
--- NOTE | 2017-08-10 10:34 | NUR ---
VSEE Pt was seen by Dr. Dooley via telemed, received orders to increase scheduled Trazodone, see EMAR.
[2017-08-10] MEDS ORDERED: HUMULIN R ONE (15:04)
[2017-08-10] MEDS ORDERED: GLUCAGEN IM PRN (17:00)
[2017-08-10] MEDS ORDERED: HUMULIN R SQ SCH (18:00)
--- NOTE | 2017-08-10 18:34 | NUR ---
PIRP P: Altered thought process, withdrawn I: Assess for hallucinations and delusions, re-orient to surroundings, assist with differentiating between internal and external reality, q15 min monitoring, provide safe and supportive environment, provide task-oriented activities, give medications as ordered, encourage social interaction, teach coping skills r/t hallucinations, give clear and simple instructions R: Pt has had pleasant, but withdrawn affect throughout shift. Isolates to room @ times, but does come to day room with prompting. Attempts to participate in group activities with active encouragement. Denies depression, reports feeling anxious. States, "I'm just worried about Sherrill Walker, she was supposed to be here." Pt exhibits delusions regarding ear or eye surgery pending, is able to be redirected with verbalization. Pt often lies down in bed, and talks out loud, unable to determine if sleeping. Pt states, "losing a lot of sleep has finally caught up with me." Pt denies hallucinations. P: Pt was seen by Dr. Dooley, received orders to increase scheduled Trazodone.
[2017-08-10] MEDS ORDERED: DESYREL ONE (18:58)
[2017-08-10 20:00] VITALS: BP 144/70
[2017-08-10] MEDS: ARICEPT PO SCH (20:49)
[2017-08-10] MEDS: AMOXIL PO SCH (20:49)
[2017-08-10] MEDS: DESYREL PO SCH (20:59)
[2017-08-10] MEDS: LANTUS SQ SCH (21:01)
[2017-08-10] MEDS: HUMULIN R SQ SCH (21:04)
--- NOTE | 2017-08-11 06:34 | NUR ---
PIRP- P- RISK FOR FALLS AND ALTERED THOUGHT PROCESS I- PROVIDE SAFE AND SUPPORTIVE ENVIRONMENT,Q 15 MIN. MONITORING,PROVIDE MEDICATION ORDERED. R- PT. WAS ORIENTED TO NAME . RATED DEPRESSION 7 AND ANXIETY 5. PT. ATTENDED GROUP AND USED AMPLIFLIER TO ENABLE HER TO HEAR BETTER. ATE SNACKS. QUIET BUT RESPONDED. TOOK MEDICATION ORDERED. PT. HAS RESTED IN BED WITH EYES CLOSED FOR 8.5 HOURS THIS SHIFT. P- WILL CONTINUE WITH CURRENT TX. PLAN.
[2017-08-11] MEDS: THERA PO SCH (08:11)
[2017-08-11] MEDS: PROTONIX PO SCH (08:11)
[2017-08-11] MEDS: ZYPREXA ZYDIS SL SCH ×2 (08:11→20:46)
[2017-08-11] MEDS: ZESTRIL PO SCH (08:11)
[2017-08-11] MEDS: COREG PO SCH ×2 (08:11→20:46)
[2017-08-11] MEDS: FLONASE NS SCH (08:11)
[2017-08-11] MEDS: HUMULIN R SQ SCH ×4 (08:12→20:47)
[2017-08-11 08:13] VITALS: BP 137/65
--- NOTE | 2017-08-11 16:18 | PNH ---
DATE: 08/10/2017 PSYCHIATRIC PROGRESS NOTE TIME: 10:00-10:20. HISTORY OF PRESENT ILLNESS: The patient is a 81-year-old female with a history of delusional disorder, depression, anxiety, dementia with behavioral disturbance. The patient has been in the [facility] on 2 previous occasions, presenting on this occasion with increased hallucinations, delusions, leaving her house, wandering, not wearing her clothing, a threat to herself due to increased confusion and wandering behaviors, increased hallucinations, auditory and visual hallucinations. Cognitive decline along with depression with depressed mood, disturbed sleep, appetite, energy and concentration. The patient is clearly representing a risk or danger to himself and is a candidate for ongoing hospitalization at this time. OBJECTIVE: VITAL SIGNS: Temperature 97.8, pulse 66, respirations 16, oxygen saturation 96% and blood pressure 148/64. REVIEW OF SYSTEMS: HEENT: Decreased hearing. CARDIAC: No chest pain. RESPIRATORY: No shortness of breath, coughing, or wheezing. GASTROINTESTINAL: No nausea, vomiting, diarrhea or constipation. GENITOURINARY: No difficulty with urination. EXTREMITIES: No swelling or edema. MUSCULOSKELETAL: No muscle pain. ENDOCRINE: Normal. MENTAL STATUS EXAMINATION: Reveals alert female with decreased psychomotor activity. Concentration and memory decreased. Speech and language are normal. Orientation decreased. Intelligence is average. Mood assessed as depressed. Affect constricted. Insight and judgment are poor. Thought is illogical, positive delusional thought with hallucinations. ASSESSMENT AND PLAN: DIAGNOSES: AXIS I: 1. Delusional disorder. 2. Major depressive disorder. 3. Dementia with behavioral disturbance. 4. Generalized anxiety. AXIS II: Deferred. AXIS III: Refer to past medical history. TREATMENT PLAN: 1. This patient was admitted to the [facility] representing a danger or risk to herself and others and she is being observed closely. 2. She has been placed on medications, specifically Zyprexa 5 mg, Aricept 10 mg, Zyprexa 10 mg at bedtime and trazodone increased today to 150 mg. 3. She is participating in groups, therapies and activities. 4. The patient will be discharged to an outpatient [facility] setting when it is felt she represents no risk or danger to herself or other individuals. Richy Dooley MD DR: ZAY/jewel JOB# [id number]
--- NOTE | 2017-08-11 17:44 | NUR ---
PIRP P: Altered thought process, withdrawn I: Assess for hallucinations and delusions, assist with differentiating between internal and external reality, q15 min monitoring, provide safe and supportive environment, alternate sleep/activity, encourage social interaction, give medications as ordered, provide task-oriented activities, give clear and simple instructions, redirect with verbalization R: Pt has had pleasant affect when approached, otherwise withdrawn. Denies depression, anxiety, S/HI. States, "I just feel tired." Denies having hallucinations, has not been observed talking to self in room. Has come out to day room and participated with prompting. P: Pt has been cooperative with med and tx plan.
[2017-08-11 20:00] VITALS: BP 119/72
[2017-08-11] MEDS: AMOXIL PO SCH (20:46)
[2017-08-11] MEDS: ARICEPT PO SCH (20:46)
[2017-08-11] MEDS: DESYREL PO SCH (20:47)
[2017-08-11] MEDS: LANTUS SQ SCH (21:04)
--- NOTE | 2017-08-12 03:55 | NUR ---
PIRP P- ALTERED THOUGHT PROCESS AND RISK FOR FALLS I- PROVIDE MEDICATION ORDERED,Q 15 MIN. MONITORING,PROVIDE SAFE AND SUPPORTIVE ENVIRONMENT R- PT. DENIED DEPRESSION AND ANXIETY . ORIENTED TO NAME . PLEASANT AFFECT. ATTENDED GROUP AND ATE SNACKS. QUIET BUT RESPONDED TO APPROACH. REMAINS FALL RISK . PT. WAS ASSISTED WITH SHOWER FOLLOWING GROUP. PT. HAS RESTED IN BED WITH EYES CLOSED FOR 4.75 HOURS THIS SHIFT OF THIS TIME. P- WILL CONTINUE WITH CURRENT TX. PLAN.
[2017-08-12 07:15] VITALS: BP 132/69
[2017-08-12] MEDS: HUMULIN R SQ SCH ×4 (07:30→20:14)
[2017-08-12] MEDS: COREG PO SCH ×2 (08:49→20:07)
[2017-08-12] MEDS: THERA PO SCH (08:49)
[2017-08-12] MEDS: FLONASE NS SCH (08:49)
[2017-08-12] MEDS: ZYPREXA ZYDIS SL SCH ×2 (08:50→20:07)
[2017-08-12] MEDS: PROTONIX PO SCH (08:50)
[2017-08-12] MEDS: ZESTRIL PO SCH (08:50)
[2017-08-12] MEDS: MOTRIN PO PRN (16:28)
--- NOTE | 2017-08-12 17:16 | NUR ---
PIRP: P: ALTERED THOUGHT PROCESS. RISK FOR FALLS. I: Provide medications as ordered by physician. Encourage attendance and participation of all groups. Provide groups that require focus and concentration. Assist patient in differentiating between internal and external reality. Provide 1:1 allowing patient to voice feelings and concerns. R: Patient has been participating in groups and has been calm and cooperative and pleasant. She has not been seen hallucinating this shift and denies suicidal ideation. She has taken all medications. P: Continue current plan of care.
[2017-08-12 19:10] VITALS: BP 131/63
[2017-08-12] MEDS: DESYREL PO SCH (20:07)
[2017-08-12] MEDS: ARICEPT PO SCH (20:07)
[2017-08-12] MEDS: AMOXIL PO SCH (20:09)
[2017-08-12] MEDS: LANTUS SQ SCH (20:38)
--- NOTE | 2017-08-13 05:27 | NUR ---
PIRP- P- ALTERED THOUGHT PROCESS AND FALL RISK I-PROVIDE 1:1 INTERVENTION ALLOWING PT. TO EXPRESS THOUGHTS AND FEELINGS.PROVIDE MEDICATION ORDERED. Q 15 MIN. MONITORING AND PROVIDE SAFE AND SUPPORTIVE ENVIRONMENT. R- PT. WAS ORIENTED TIMES THREE. RATED DEPRESSION 5 AND ANXIETY 0. ATTENDED GROUP AND PARTICIPATED IN ACTIVITY. TETLIN BUT USED AMPLIFIER TO ASSIST IN HEARING. PT. WAS QUIET BUT RESPONDED WHEN IT WAS HER TURN. PLEASANT AFFECT. REMAINS FALL RISK AND IS WEARING YELLOW NON SKID SOCKS AND BED IN LOW POSITION. TOOK MEDICATION ORDERED. P- WILL CONTINUE WITH CURRENT TX. PLAN.
[2017-08-13] MEDS: HUMULIN R SQ SCH ×4 (07:22→20:33)
[2017-08-13 08:48] VITALS: BP 129/59
[2017-08-13] MEDS: FLONASE NS SCH (08:50)
[2017-08-13] MEDS: COREG PO SCH ×2 (08:51→20:19)
[2017-08-13] MEDS: ZYPREXA ZYDIS SL SCH ×2 (08:51→20:19)
[2017-08-13] MEDS: ZESTRIL PO SCH (08:51)
[2017-08-13] MEDS: PROTONIX PO SCH (08:51)
[2017-08-13] MEDS: THERA PO SCH (08:51)
[2017-08-13] MEDS: MOTRIN PO PRN (14:28)
--- NOTE | 2017-08-13 16:06 | NUR ---
PIRP: P: ALTERED THOUGHT PROCESS. RISK FOR FALLS. I: Provide medications as ordered by physician. Encourage attendance and participation of all groups. Provide groups that require focus and concentration. Assist patient in differentiating between internal and external reality. Provide patient with nonskid socks. R: Patient has taken all medications as ordered. She has attended and participated in all groups. She has not had a fall hospital stay. P: continue current plan of care.
[2017-08-13 19:23] VITALS: BP_SYST 122; BP_SYST 138; BP_DIAS 54; BP_DIAS 65
[2017-08-13] MEDS: AMOXIL PO SCH (20:18)
[2017-08-13] MEDS: DESYREL PO SCH (20:19)
[2017-08-13] MEDS: ARICEPT PO SCH (20:19)
[2017-08-13] MEDS: LANTUS SQ SCH (20:27)
--- NOTE | 2017-08-14 03:09 | PNH ---
DATE: 08/12/2017 PSYCHIATRIC PROGRESS NOTE TIME: 2:40-3:00. HISTORY OF PRESENT ILLNESS: The patient is a very nice elderly 81-year-old female with a history of delusional disorder, major depression, anxiety and dementia with behavioral disturbance. She has been in the [facility] twice in the past. The patient had been a threat to herself, increasing confusion, wandering behaviors, increased hallucinations, auditory and visual, cognitive decline, depressive symptoms with depressed mood, disturbed sleep, appetite, energy and concentration. No manic or hypomanic symptoms. The patient is showing improvement at this point with decreasing depressive symptoms, decreasing psychosis, better interaction in groups and therapies. If this patient continues to show improvement at this level, discharge will be soon. OBJECTIVE: VITAL SIGNS: Blood pressure 132/69, pulse 66, respiration 18, temperature 98.2 and oxygen saturation 94%. REVIEW OF SYSTEMS: HEENT: The patient has decreased hearing. RESPIRATORY: No shortness of breath, coughing, or wheezing. CARDIAC: No chest pain or palpitations. GASTROINTESTINAL: No nausea, vomiting, diarrhea or constipation. GENITOURINARY: No difficulty with urination. EXTREMITIES: No swelling or edema. MUSCULOSKELETAL: No muscle pain. NEUROLOGIC: Normal. ENDOCRINE: Normal. MENTAL STATUS EXAMINATION: Reveals an alert female. Decreased psychomotor activity. Concentration and memory poor. Speech and language are normal. Orientation decreased. Intelligence is average. Mood assessed as depressed. Affect somewhat constricted. Insight and judgment are poor at this time with decreasing delusional thought and hallucinations. ASSESSMENT AND PLAN: DIAGNOSES: AXIS I: 1. Delusional disorder. 2. Dementia with behavioral disturbance. 3. Major depressive disorder. AXIS II: Deferred. AXIS III: Refer to past medical history. AXIS IV: Stress of mental illness. AXIS V: Current global assessment of functioning of 40. TREATMENT PLAN: 1. The patient was admitted involuntarily to the [facility] and observed closely. 2. She was placed on medications, specifically trazodone increased to 150 mg at bedtime, Zyprexa 5 mg in the morning and 10 at bedtime, Aricept. 3. She is participating in groups, therapies and activities. 4. If the patient shows continued improvement, she will likely be discharged to a [facility] setting. Richy Dooley MD DR: ZAY/jewel JOB# [id number]
--- NOTE | 2017-08-14 05:05 | NUR ---
PIRP P Delusional Disorder, Altered thought process, Risk for falls I Observation of patient every 15 minutes to provide safety for patient and allow her to verbalize thoughts. Patient to be medication compliant and understand that she needs to continue medications as ordered after being discharge from [facility]. Orientation to be improved from admission to [facility] unit. R Patient observed every 15 minutes and has been in safe environment through out [facility] stay. Patient has been encouraged to talk and will verbalize what she is thinking. Patient has been medication compliant and knows she has to take meds to continue to feel good. Patient is oriented to person , place and day. Patient aware that she is going home on . P Continue plan of care.
[2017-08-14 06:45] VITALS: BP 142/75
[2017-08-14] MEDS: HUMULIN R SQ SCH ×3 (07:20→16:10)
[2017-08-14] MEDS ORDERED: OLAN5TAB5 SL (07:45)
[2017-08-14] MEDS: ZESTRIL PO SCH (08:47)
[2017-08-14] MEDS: THERA PO SCH (08:47)
[2017-08-14] MEDS: ZYPREXA ZYDIS SL SCH (08:47)
[2017-08-14] MEDS: COREG PO SCH (08:47)
[2017-08-14] MEDS: PROTONIX PO SCH (08:47)
[2017-08-14] MEDS: FLONASE NS SCH (08:47)
--- NOTE | 2017-08-14 10:18 | NUR ---
NOTIFIED DR. QUIÑONEZ: Notified Dr. Quiñonez of discharge today and need for discharge medications.
--- NOTE | 2017-08-14 17:40 | NUR ---
DIscharge: Patient has been calm and cooperative. She is being discharged to home in care of her daughter today.
[2017-08-14] MEDS: MOTRIN PO PRN (17:43)
[2017-08-14 18:26] VITALS: BP 142/75
--- NOTE | 2017-08-14 18:44 | DSH ---
DATE OF DISCHARGE: 08/14/2017 TIME: 7:00-7:20. HOSPITAL COURSE: The patient is a 81-year-old female with a history of delusional disorder, depression, anxiety, dementia with behavioral disturbance. The patient was admitted due to hallucinations, delusional thought, wandering in her home. Family not able to care for her. She had wandering behaviors and was a threat to herself, increasing hallucinations, auditory and visual, cognitive decline, positive depression with depressed mood, disturbed sleep, appetite, energy and concentration. The patient has shown significant improvement with the resolution completely of all depressive symptoms and psychotic symptoms. She still has a dementing illness with no behavioral disturbance, which will be a progressive dementing process. She has done exceedingly well, participated fully in all groups, therapies and activities. She was placed on medications, specifically Zyprexa 5 mg in the morning, Zyprexa 10 mg in the evening, Aricept 10 mg and trazodone 150 mg at bedtime. DISPOSITION AND DIAGNOSES: AXIS I: 1. Delusional disorder. 2. Dementia with behavioral disturbance. 3. Major depression. AXIS II: Deferred. AXIS III: Refer to past medical history. TREATMENT PLAN: 1. This patient was admitted to the [facility] involuntarily and was observed closely. 2. The patient was placed on the medications as outlined above. 3. She did participate in all groups, therapies and activities. 4. The patient is appropriate for discharge, represents no risk or danger to herself whatsoever. No suicidal or homicidal thoughts, very good response to treatment. Richy Dooley MD DR: ZAY/jewel JOB# [id number]
== END 2017-08-14 18:50 | disposition home or self-care (01) | DRG 885 ==
LOC: ER 14:30 → EEVIPCON 18:55 → GP 18:55
PROVIDERS: ADMIT Psychiatry & Neurology Psychiatry; ATTEND Psychiatry & Neurology Psychiatry
DX: F32.3 Major depressive disorder, single episode, severe with psychotic features (principal); F02.81 Dementia in other diseases classified elsewhere, unspecified severity, with behavioral disturbance; G30.9 Alzheimer's disease, unspecified; E11.9 Type 2 diabetes mellitus without complications; N39.0 Urinary tract infection, site not specified; G89.29 Other chronic pain; G47.9 Sleep disorder, unspecified; M54.9 Dorsalgia, unspecified; Z66 Do not resuscitate; I10 Essential (primary) hypertension; K21.9 Gastro-esophageal reflux disease without esophagitis; M19.90 Unspecified osteoarthritis, unspecified site; F32.9 Major depressive disorder, single episode, unspecified; F41.1 Generalized anxiety disorder; Z91.410 Personal history of adult physical and sexual abuse; Z91.411 Personal history of adult psychological abuse; Z79.4 Long term (current) use of insulin; Z79.899 Other long term (current) drug therapy; Z90.49 Acquired absence of other specified parts of digestive tract; Z98.891 History of uterine scar from previous surgery
CPT/HCPCS: 36415; 71045; 80053; 80061; 80307; 81000; 82550; 82553; 82607; 82948; 83036; 83880; 84443; 84484; 85025; 85610; 85730; 86140; 90662; 93005; 97150; 97165; 99285; J1815; G8987; G8988

== ENCOUNTER → 2017-08-29 | Outpatient (CLI) | payer OTHER ==
[2017-08-29 15:32] LABS: BASOPHIL % 0.3 % (0.0-0.2); EOSINOPHIL # 0.2 10^3/uL (0.0-0.2); HEMOGLOBIN 13.3 g/dL (12.0-15.0); LYMPHOCYTES # 2.5 10^3/uL (1.0-4.8); LYMPHOCYTES % 32.6 % (24.0-44.0); MEAN CELL HGB 29.8 pg (26-34); MEAN CELL HGB CONCENTRATION 32.9 g/dL (33-37); MEAN CORP VOLUME 90.4 fL (78-100); MEAN PLATELET VOLUME 12.7 fL (7.8-11.0); MONOCYTES # 0.7 10^3/uL (0.3-0.8); MONOCYTES % 9.1 % (5.0-12.0); NEUTROPHIL # 4.3 10^3/uL (1.8-7.7); NEUTROPHILS % 55.9 % (41.0-85.0); RED CELL DISTRIBUTION WIDTH 14.1 % (11.5-14.5); WHITE BLOOD CELL 7.7 10^3/uL (4.5-11.0)
[2017-08-29 16:01] LABS: CALCIUM 8.7 mg/dL (8.4-10.5); CARBON DIOXIDE 25.7 mmol/L (20.0-32)
== END | disposition home or self-care (01) ==
LOC: NPLAB 15:23
PROVIDERS: ATTEND Internal Medicine
DX: I10 Essential (primary) hypertension (principal); E11.40 Type 2 diabetes mellitus with diabetic neuropathy, unspecified; F03.91 Unspecified dementia, unspecified severity, with behavioral disturbance; Z87.440 Personal history of urinary (tract) infections; Z79.4 Long term (current) use of insulin; Z79.899 Other long term (current) drug therapy
CPT/HCPCS: 80053; 80061; 83036; 84439; 84443; 84479; 85025; 85651; 86140

== ENCOUNTER → 2017-09-13 | Outpatient (CLI) | payer OTHER ==
--- NOTE | 2017-09-13 12:43 | DIREP ---
PROCEDURE:XRAY SPINE LUMBAR 2-3 VWS COMPARISON:[facility], , XRAY SPINE LUMBAR 2-3 VWS, 06/03/2016, 09:28 AM. INDICATIONS:LUMBAGO, LOW BACK PAIN FINDINGS: ALIGNMENT:No significant scoliosis. Normal lumbar lordosis. Vertebral body alignment is maintained. VERTEBRAE:Apparent mild superior endplate compression deformity of the L1 vertebral body. This does appear new from the previous study dated 06/03/2016. DISK SPACES:Fairly advanced degenerative disc disease throughout the lumbar spine with associated facet arthropathy. SPONDYLOLISTHESIS:No significant spondylolisthesis. SACROILIAC JOINTS:Mild degenerative changes. OTHER:Calcifications of the aorta. Degenerative changes of the hips. CONCLUSION: 1. Apparent mild superior endplate compression deformity of the L1 vertebral body which does appear new from the previous study dated 06/03/2016. This is of indeterminate chronicity. 2. Fairly advanced multilevel degenerative disc and spine disease throughout the lumbar spine. Dictated by: Richy Quiñonez M.D. On 09/13/2017 at 12:39 PM
--- NOTE | 2017-09-13 12:44 | DIREP ---
PROCEDURE:XRAY HIP MIN 2VW-LT COMPARISON:[facility], , XRAY HIP MIN 2VW-LT, 06/07/2017, 11:59 AM. INDICATIONS:PAIN IN LEFT HIP FINDINGS: BONES:No acute fracture. JOINTS:Moderate degenerative changes of the hips. SOFT TISSUES:No suspicious abnormality. OTHER:No additional findings. CONCLUSION: 1. No acute osseous abnormality. 2. Moderate degenerative changes of the hips. Dictated by: Richy Quiñonez M.D. On 09/13/2017 at 12:42 PM
== END | disposition home or self-care (01) ==
LOC: RAD 11:52
PROVIDERS: ATTEND Internal Medicine
DX: M54.42 Lumbago with sciatica, left side (principal); M51.36 Other intervertebral disc degeneration, lumbar region; M16.12 Unilateral primary osteoarthritis, left hip
CPT/HCPCS: 72100; 73502

== ENCOUNTER → 2017-09-17 | Outpatient (CLI) | payer OTHER ==
--- NOTE | 2017-09-19 14:15 | DIREP ---
PROCEDURE: BONE DENSITY PERIPHERAL INDICATIONS: OSTEOPOROSIS FINDINGS: LUMBAR SPINE: SURGERY: No evidence of prior surgery is identified. VERTEBRAE: No compression fractures are identified. Vertebra BMD (g/cm2) T-Score L1: 1.307 1.4 L2: 1.202 -0.1 L3: 1.240 0.2 L4: 1.398 1.4 AP Spine(L1-4): 1.294 0.8 BILATERAL HIPS: SURGERY: No evidence of prior surgery is identified. Region BMD (g/cm2) T-Score Femoral Neck (Left): 0.653 -2.8 Femoral Neck (Right): 0.650 -2.8 Total Hip (Left): 0.641 -2.9 Total Hip (Right): 0.620 -3.1 FRAX* RESULTS: 10-year Probability of Fracture1 Major Osteoporotic Fracture2 28.1% Hip Fracture 11.6% 1 - The 10-year probability of fracture may be lower than expected if the patient has received treatment. 2 - Major Osteoporotic Fracture: Clinical Spine, Forearm, Hip or Shoulder * - FRAX is a trademark of the [employer]'s [employer] for Metabolic Bone Disease, a World Health Organization (WHO) Collaborating [employer] CONCLUSION: 1. Normal bone mineral density of the lumbar spine. 2. Osteoporosis of the left femoral neck. 3. Osteoporosis of the left hip overall. 4. Osteoporosis of the right femoral neck. 5. Osteoporosis of the right hip overall. NOTE: The WHO classification criteria for T-score Normal Greater than or equal to -1.0 Osteopenia Between -1.0 and -2.5 Osteoporosis Below -2.5 Severe Osteoporosis Below -2.5 with fracture Dictated by: Bin Ray M.D. on 09/17/2017 at 02:38 PM [facility]
== END | disposition home or self-care (01) ==
LOC: BD 10:46
PROVIDERS: ATTEND Internal Medicine
DX: Z13.820 Encounter for screening for osteoporosis (principal); M81.0 Age-related osteoporosis without current pathological fracture
CPT/HCPCS: 77080

== ENCOUNTER 2017-10-08 01:24 | Observation (INO) | payer OTHER ==
[~2017-10-08] VITALS: Ht 160 cm; Wt 72.1 kg
[2017-10-08 01:28] VITALS: BP 164/74
--- NOTE | 2017-10-08 01:52 | ER.PDOC ---
General Chief Complaint: GI Bleed/Rectal Pain Stated Complaint: POSS GI BLEED Time seen by MD: 01:48 Source: family History of Present Illness Initial Comments Passing bright red blood in stool this morning. Severity/Quality: moderate Associated Symptoms: blood mixed w/stool Allergies: Coded Allergies: No Known Allergies (Unverified , 07/01/16) Home Meds Active Scripts Olanzapine (ZYPREXA ZYDIS) 5 Mg Tab.rapdis, 5 MG SL DAILY for 30 Days, #30 Prov:MARGO URBANO MD 08/14/17 Omeprazole (OMEPRAZOLE) 20 Mg Tablet.dr, 20 MG PO DAILY for ulcer prevention, # 30 TAB 3 Refills Prov:ADONAY VIERA MD 07/11/16 Trazodone Hcl (TRAZODONE HCL) 50 Mg Tablet, 100 MG PO HS, #30 TABLET Prov:MARGO URBANO MD 07/11/16 Olanzapine (ZYPREXA ZYDIS) 5 Mg Tab.rapdis, 10 MG SL HS, #30 Prov:MARGO URBANO MD 07/11/16 Donepezil Hcl (ARICEPT) 5 Mg Tablet, 10 MG PO HS, #30 TABLET Prov:MARGO URBANO MD 07/11/16 Lisinopril (LISINOPRIL) 10 Mg Tablet, 10 MG PO DAILY for HTN, #30 TABLET Prov:ADONAY VIERA MD 06/22/16 Carvedilol (CARVEDILOL) 3.125 Mg Tablet, 3.125 MG PO BID for HTN, #30 TABLET Prov:ADONAY VIERA MD 06/22/16 Reported Medications Exenatide Microspheres (BYDUREON) 2 Mg Vial, 2 MG SQ WEEKLY, VIAL 05/26/17 Insulin Detemir (LEVEMIR) 100 Unit/1 Ml Vial, 20 UNIT SQ HS, VIAL 05/26/17 Past Medical History Medical History: diabetes, hypertension Surgical History: appendectomy, Social History Drug Use: none Constitutional: no symptoms reported Respiratory: no symptoms reported Cardiovascular: no symptoms reported ABD/GI (ROS): see HPI Genitourinary: no symptoms reported All Other Systems: Reviewed and Negative Physical Exam General Appearance: No Apparent Distress, WD/WN Neck: nml inspection, non-tender Respiratory: chest non-tender, lungs clear, normal breath sounds, no respiratory distress, no accessory muscle use Cardiovascular: Normal Peripheral Pulses, Regular Rate, Rhythm, No Edema, No Gallop, No JVD, No Murmur Gastrointestinal: Normal Bowel Sounds, No Organomegaly, No Pulsatile Mass, Non Tender, Soft Rectal: Normal Exam, Heme Negative Stool Back: Normal Inspection, No CVA Tenderness, No Vertebral Tenderness Extremities: Normal Range of Motion, Non-Tender, Normal Inspection, No Pedal Edema, No Calf Tenderness, Normal Capillary Refill Neurologic/Psychiatric: ssrs report developer II-XII NML as Tested, No Motor/Sensory Deficits, Alert, Normal Mood/Affect, Oriented x 3 Skin: Normal Color, Warm/Dry Results/Orders Results/Orders Laboratory Tests Test 10/08/17 01:46 10/08/17 01:55 Bedside Stool Occult Blood NEGATIVE (NEGATIVE) White Blood Count 11.3 10^3/uL (4.5-11.0) Red Blood Count 4.37 10^6/uL (4.00-5.20) Hemoglobin 13.1 g/dL (12.0-15.0) Hematocrit 39.3 % (36.0-46.0) Mean Corpuscular Volume 89.9 fL (78-100) Mean Corpuscular Hemoglobin 30.0 pg (26-34) Mean Corpuscular Hemoglobin Concent 33.3 g/dL (33-37) Red Cell Distribution Width 13.3 % (11.5-14.5) Platelet Count 152 10^3/uL (150-400) Mean Platelet Volume 12.3 fL (7.8-11.0) Neutrophils (%) (Auto) 67.9 % (41.0-85.0) Lymphocytes (%) (Auto) 22.7 % (24.0-44.0) Monocytes (%) (Auto) 7.5 % (5.0-12.0) Neutrophils # (Auto) 7.7 10^3/uL (1.8-7.7) Lymphocytes # (Auto) 2.6 10^3/uL (1.0-4.8) Monocytes # (Auto) 0.8 10^3/uL (0.3-0.8) Absolute Immature Granulocyte (auto 0.03 10^3 u/L (0-2) Eosinophils % 1.3 % (0.0-5.0) Basophils % 0.3 % (0.0-0.2) Basophils # 0.0 10^3/uL (0.0-0.1) Eosinophil Count 0.2 10^3/uL (0.0-0.2) Prothrombin Time 10.0 SEC (9.8-11.9) Prothrombin Time INR (Non-Therap) 1.0 Activated Partial Thromboplast Time 25.2 SEC (24.67-30.72) Sodium Level 143 mmol/L (132-145) Potassium Level 4.3 mmol/L (3.6-5.2) Chloride Level 107.0 mmol/L (96-109) Carbon Dioxide Level 24.8 mmol/L (20.0-32) Anion Gap 15.5 Blood Urea Nitrogen 17 mg/dL (7-18) Creatinine 1.07 mg/dL (0.59-1.40) Estimated GFR () 59.9 (>/=60) BUN/Creatinine Ratio 15.0 Glucose Level 143 mg/dL (70-110) Calcium Level 8.8 mg/dL (8.4-10.5) Total Bilirubin 0.4 mg/dL (0.2-1.0) Aspartate Amino Transf (AST/SGOT) 21 U/L (0-35) Alanine Aminotransferase (ALT/SGPT) 23 U/L (12-78) Alkaline Phosphatase 71 U/L (50-136) Total Protein 6.8 g/dL (6.4-8.2) Albumin 3.0 g/dL (3.4-5.0) Globulin 3.8 Percent Immature Gran (Cell Imm) 0.30 % (0.00-0.50) Progress Progress Patient's daughter showed me a picture of blood in the toilet and on her diapers. Course Blood Pressure Systolic: 164 Blood Pressure Diastolic: 74 Blood Pressure Mean: 104 Departure Time of Disposition: 02:27 Disposition: 09 ADMITTED INPATIENT Impression: Primary Impression: Gastrointestinal hemorrhage Condition: Stable Referrals: ADONAY VIERA MD (PCP) PRIMARY CARE PROVIDER Comments Admitted to Dr. Quiñonez Duration or Time Spent with Pa: 60 mins Problem Qualifiers Primary Impression: Gastrointestinal hemorrhage GI bleed type/associated pathology: unspecified gastrointestinal hemorrhage type Qualified Codes: K92.2 - Gastrointestinal hemorrhage, unspecified GONZALES METCALF MD Oct 08, 2017 01:52
[2017-10-08 02:00] LABS: BASOPHIL % 0.3 % (0.0-0.2); EOSINOPHIL # 0.2 10^3/uL (0.0-0.2); EOSINOPHIL % 1.3 % (0.0-5.0); HEMOGLOBIN 13.1 g/dL (12.0-15.0); LYMPHOCYTES # 2.6 10^3/uL (1.0-4.8); LYMPHOCYTES % 22.7 % (24.0-44.0); MEAN CELL HGB CONCENTRATION 33.3 g/dL (33-37); MEAN CORP VOLUME 89.9 fL (78-100); MEAN PLATELET VOLUME 12.3 fL (7.8-11.0); MONOCYTES # 0.8 10^3/uL (0.3-0.8); MONOCYTES % 7.5 % (5.0-12.0); NEUTROPHIL # 7.7 10^3/uL (1.8-7.7); NEUTROPHILS % 67.9 % (41.0-85.0); RED CELL DISTRIBUTION WIDTH 13.3 % (11.5-14.5); WHITE BLOOD CELL 11.3 10^3/uL (4.5-11.0)
[2017-10-08 02:17] LABS: CALCIUM 8.8 mg/dL (8.4-10.5); CARBON DIOXIDE 24.8 mmol/L (20.0-32)
[2017-10-08 02:20] VITALS: BP 133/66
--- NOTE | 2017-10-08 02:24 | NUR ---
DR NELSON MAYA ON PHONE WITH DR DAMON AT THIS TIME.
[2017-10-08] MEDS ORDERED: PROTONIX IV IV STA (02:28)
[2017-10-08] MEDS ORDERED: HNS 1000ML 1,000 ML IV STA (02:28)
--- NOTE | 2017-10-08 02:28 | PRM.ACF1 ---
Date and Time Date and Time Time: Admission Criteria Forms GASTROINTESTINAL BLEEDING: COMMON COMPLICATIONS AND CONDITIONS Clinical Indications for Inpatient Care ([place]/check the applicable condition/criteria) Ongoing inpatient care may be indicated for gastrointestinal bleeding with 1 or more of the following(4)(16)(18)(19)(20)(21)(22)(23)(24)(25): [x ]I. Active bleeding (eg, fresh blood in emesis or nasogastric aspirate, or per rectum)(26)(27) [ ]II. Hemodynamic instability indicated by 1 or more of the following(1)(2)(3)( 4)(5)(6)(7): [ ]a. Vital sign abnormality not readily corrected by appropriate treatment within 12 to 24 hours indicated by 1 or more of the following: [ ]i. Tachycardia as indicated by 1 or more of the following(1)(2): [ ]1. Heart rate greater than 100 beats per minute in adult or child age 6 years or older [ ]2. Heart rate greater than 115 beats per minute in child 3 to 5 years of age [ ]3. Heart rate greater than 125 beats per minute in child 1 or 2 years of age [ ]4. Heart rate greater than 130 beats per minute in 6 to 11 months of age [ ]5. Heart rate greater than 150 beats per minute in 3 to 5 months of age [ ]6. Heart rate greater than 160 beats per minute in infant 1 or 2 months of age [ ]ii. Hypotension as indicated by ALL of the following (1)(2)( 3)(4): [ ]A. Not patient baseline (eg, healthy adult with low SBP) or intentional therapeutic goal (eg, low SBP as treatment goal in heart failure) [ ]B. Low blood pressure as indicated by 1 or more of the following: [ ]1. New onset of SBP less than 90 mm Hg in adult or child 10 years or older [ ]2. New decrease in SBP greater than 40 mm Hg in adult or child 10 years or older [ ]3. Mean arterial pressure[A] less than 70 mm Hg in adult or child 10 years or older [ ]4. New onset of SBP less than sum of 70 mm Hg plus twice patient's age in years in child 1 to 9 years of age [ ]5. New onset of SBP less than 70 mm Hg in 1 to 11 months of age [ ]iii. Orthostatic vital sign changes as indicated by 1 or more of the following (1): [ ]A .Fall in SBP of 20 mm Hg or more 1 to 3 minutes after patient sits or stands from recumbent position [ ]B. Fall in DBP of 10 mm Hg or more 1 to 3 minutes after patient sits or stands from recumbent position [ ]b. Vital sign abnormality that is severe indicated by 1 or more of the following: [ ]i. Inadequate perfusion as indicated by 1 or more of the following: [ ]A. Lactic acidosis, with lactic acid greater than 18 mg/dL (2 mmol/L) or base excess <-5mEq/L [ ]B. Other metabolic acidosis (arterial pH < 7.35)not otherwise explanied [ ]C.New abnormal capillary refill (longer than 3 seconds) [ ]D. Reduced urine output as indicated by 1 or more of the following(1)(2 ): [ ]1. Urine output less than 0.5 mL/kg/hour for 6 hours in adult [ ]2. Anuria (urine output less than 0.1 mL/kg/hour) for 4 hours in any age group [ ]3. Reduced output in child as indicated by 1 or more of the following (3): [ ](i). Urine output less than 2 mL/kg/hour for 6 hours in infant younger than 2 years [ ](ii). Urine output less than 1 mL/kg/hour for 6 hours in child younger than12 years [ ](iii). Urine output less than 0.75 mL/kg/hour for 6 hours in adolescent younger than18 years [ ]E. Altered mental status indicated by 1 or more of the following(1)(2)(3)(4): [ ]1. Confusional state (eg,disorientation,difficultyfollowing commands,deficit in attention) [ ]2. Lethargy (awake or arousable,but with drowsiness;reduced awareness of self and environment) [ ]3. Obtundation(ie,arousable with strong stimuli,lessened interest in environment, slowed responses to stimulation) [ ]4. Stupor (may be arousable but patient does not return to normal baseline level of awareness) [ ]5. Coma (not arousable) [ ]F. Myocardial ischemia [ ]ii. Mean arterial pressure[A] less than 60 mm Hg [ ]iii. Mean arterial pressure[A] less than 70 mm Hg after 30 minutes of appropriate treatment (eg, fluid resuscitation) [ ]iv. IV inotropic or vasopressor medication required to maintain adequate blood pressure or perfusion [ ]v. Sustained heart rate greater than 120 beats per minute in adult or child 6 years or older[B] [ ]III. Coagulopathy (eg, advanced liver disease, irreversible anticoagulation) [ ]IV. Suspected or known ischemic colitis (28) [ ]V. Previous aortic graft placement or known aortic aneurysm [ ]. High-risk low platelet count as indicated by 1 or more of the following(1 )(2)(3): [ ]a. Severe or life-threatening bleeding (eg, intracranial, major gastrointestinal, or extensive mucosal bleeding), with any reduced platelet count [ ]b. Platelet count less than 20,000/mm3 (20 x109/L) with any active bleeding [ ]c. Platelet count less than 10,000/mm3 (10 x109/L) with minor purpura or petechiae [ ]d. Platelet count less than 5000/mm3 (5 x109/L) [ ]e. Low platelet count with hemolytic anemia [ ]VII. Anemia requiring inpatient care as indicated by 1 or more of the following: [ ]a. Altered mental status indicated by 1 or more of the following(1)(2)(3)( 4): [ ] i. Confusional state (eg,disorientation,difficulty following commands,deficit [ ]ii. Lethargy (awake or arousable,but with drowsiness;reduced awareness of self and environment) [ ]iii. Obtundation(ie,arousable with strong stimuli,lessened interest in environment, slowed responses to stimulation) [ ]iv. Stupor (may be arousable but patient does not return to normal baseline level of awareness) [ ]v. Coma (not arousable) [ ]b.Syncope [ ]c.Heart failure [ ]d.Chest pain [ ]e.Dyspnea [ ]f. Other findings suggesting inadequate perfusion (eg, peripheral or myocardial ischemia, end organ dysfunction) [ ]VIII. High-risk endoscopic features (arterial bleeding, adherent clot, nonbleeding visible vessel, malignancy, varices, flat red spots, ulcer size greater than 2 cm, or portal hypertensive gastropathy) [ ]IX. Suspected variceal cause of bleeding as indicated by 1 or more of the following(16)(29)(30)(31)(32)(33): [ ]a. Known varices [ ]b. Hepatomegaly or splenomegaly [ ]c. Ascites [ ]d. Jaundice or scleral icterus [ ]e. History of liver disease (eg, cirrhosis) [ ]f. Physical findings of portal hypertension (eg, caput medusa) [ ]g. Comorbid disorder indicating risk for portal vein thrombosis (eg, abdominal surgery, sepsis, shock, exchange transfusion, prior umbilical vein catheterization) The original [employer] content created by [employer] has been revised. The portions of the content which have been revised are identified through the use of italic text, and [facility] has neither reviewed nor approved the modified material. All other unmodified content is copyright [facility], 1928–1983[employer]. Please see references footnoted in the original [facility] edition 2014 GONZALES METCALF MD Oct 08, 2017 02:28
[2017-10-08] MEDS ORDERED: INSU3INS2 SQ (02:29)
[2017-10-08] MEDS ORDERED: HNS 1000ML 1,000 ML ONE (02:34)
[2017-10-08] MEDS ORDERED: PROTONIX IV IV ONE (02:34)
[2017-10-08 03:57] VITALS: BP 152/88
--- NOTE | 2017-10-08 05:15 | NUR ---
PT HAD BLOOD IN HAT WHEN WENT TO RESTROOM. STATED THAT SHE HAS BEEN CONSTIPATED.
[2017-10-08 07:08] LABS: BASOPHIL % 0.3 % (0.0-0.2); EOSINOPHIL # 0.2 10^3/uL (0.0-0.2); EOSINOPHIL % 2.6 % (0.0-5.0); HEMOGLOBIN 13.4 g/dL (12.0-15.0); LYMPHOCYTES # 3.2 10^3/uL (1.0-4.8); LYMPHOCYTES % 34.4 % (24.0-44.0); MEAN CELL HGB CONCENTRATION 33.3 g/dL (33-37); MEAN CORP VOLUME 90.1 fL (78-100); MEAN PLATELET VOLUME 12.5 fL (7.8-11.0); MONOCYTES # 0.9 10^3/uL (0.3-0.8); MONOCYTES % 9.5 % (5.0-12.0); NEUTROPHIL # 4.9 10^3/uL (1.8-7.7); NEUTROPHILS % 53.1 % (41.0-85.0); RED CELL DISTRIBUTION WIDTH 13.4 % (11.5-14.5); WHITE BLOOD CELL 9.3 10^3/uL (4.5-11.0)
[2017-10-08 07:31] VITALS: BP 165/72
--- NOTE | 2017-10-08 10:15 | NUR ---
DISCHARGE PLAN CM VISITED WITH PT AND DAUGHTER CONCERNING HER DISCHARGE PLAN AND NEED. PT LIVES @ HOME WITH HER DAUGHTER. PTS DAUGHTER STATED PT IS ROLON INDEPENDENT ON ADLS AND USES HER WALKER FOR AMBULATION ASSISTANCE. SHE ALSO HAS A SHOWER CHAIR AND BED SIDE COMMODE IN PLACE AND DENIES NEEDING ADDITIONAL DME RESOURCES @ THIS TIME. PT CURRENTLY HAS [facility] FOR SKILLED, PT SERVICES AND HAS A PROVIDER MONDAYS AND FRIDAYS THAT PTS DAUGHTER IS PRIVATE PAYING. 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 CM PROVIDED HER WITH A COMPLETE COMMUNITY RESOURCE LIST FOR [facility] CONTACT INFORMATION FOR POSSIBLE PROVIDER ASSISTANCE. CM ALSO NOTIFIED [facility] AND SPOKE TO YOBANI HANNA REGARDING PTS HOSPITAL ADMISSION AND TENTATIVE DISCHARGE FOR TODAY. YOBANI STATED THAT [facility] WILL FOLLOW UP WITH PT TOMORROW 10/09/17 AND CONTINUE TO FOLLOW PT FOR ANY FURTHER DISCHARGE NEEDS. PT AND DAUGHTER DENY ANY FURTHER NEEDS @ THIS TIME WITH CONTACT INFORMATION PROVIDED. CURRENT GOAL FOR PT IS TO DISCHARGE BACK HOME TO ROUTINE CARE WITH CURRENT PROVIDERS IN PLACE. NO FURTHER CM OR DISCHARGE NEEDS KNOWN @ THIS TIME.
--- NOTE | 2017-10-08 10:20 | PRM.DC ---
Discharge Summary Date of Discharge: Oct 08, 2017 Reason for Visit: Lower GI bleed Patient History: Alzheimer's disease G8 BROTHER Cerebrovascular disorder 33 FATHER Hypertension G8 BROTHER G8 SISTER G8 SISTER 32 MOTHER 33 FATHER Unknown No Family History of: Asthma Chronic obstructive pulmonary disease Congestive heart failure Diabetes insipidus Diabetes mellitus Parkinson's disease History Present Illness: (1) Lower GI bleed Status: Resolved ICD Code: K92.2 - Gastrointestinal hemorrhage, unspecified SNOMED: 22997152 Assessment & Plan: Follow up with Surgery as outpatient for flex sigmoidoscopy (2) Essential (primary) hypertension Permanent Comment: BP is intermittently elevated (perhaps with anxiety or exertion?) but typically is near 145/70, which is acceptable. - Continue pt's home BP medications at current doses. Last Edited By: Sreedhar Castillo MD on Oct 09, 2016 11:02 Status: Chronic ICD Code: I10 - Essential (primary) hypertension SNOMED: 93589727 (3) Dementia Status: Chronic ICD Code: F03.90 - Unspecified dementia without behavioral disturbance SNOMED: 09861180 General: Alert, Cooperative, No acute distress HEENT: PERRLA, EOMI Neck: Supple, No JVD Lungs: Clear to auscultation, Normal air movement Heart: Regular rate, Normal S1, Normal S2 Abdomen: Normal bowel sounds, Soft, No tenderness Extremities: No clubbing, No cyanosis Skin: No breakdown Neuro: Strength at 5/5 X4 ext, Cranial nerves 3-12 NL Psych/Mental Status: Mood NL Results(Labs/Rad) Laboratory Tests Test 10/08/17 01:46 10/08/17 01:55 10/08/17 07:03 Bedside Stool Occult Blood NEGATIVE White Blood Count 11.3 10^3/uL 9.3 10^3/uL Red Blood Count 4.37 10^6/uL 4.46 10^6/uL Hemoglobin 13.1 g/dL 13.4 g/dL Hematocrit 39.3 % 40.2 % Mean Corpuscular Volume 89.9 fL 90.1 fL Mean Corpuscular Hemoglobin 30.0 pg 30.0 pg Mean Corpuscular Hemoglobin Concent 33.3 g/dL 33.3 g/dL Red Cell Distribution Width 13.3 % 13.4 % Platelet Count 152 10^3/uL 129 10^3/uL Mean Platelet Volume 12.3 fL 12.5 fL Neutrophils (%) (Auto) 67.9 % 53.1 % Lymphocytes (%) (Auto) 22.7 % 34.4 % Monocytes (%) (Auto) 7.5 % 9.5 % Neutrophils # (Auto) 7.7 10^3/uL 4.9 10^3/uL Lymphocytes # (Auto) 2.6 10^3/uL 3.2 10^3/uL Monocytes # (Auto) 0.8 10^3/uL 0.9 10^3/uL Absolute Immature Granulocyte (auto 0.03 10^3 u/L 0.01 10^3 u/L Eosinophils % 1.3 % 2.6 % Basophils % 0.3 % 0.3 % Basophils # 0.0 10^3/uL 0.0 10^3/uL Eosinophil Count 0.2 10^3/uL 0.2 10^3/uL Prothrombin Time 10.0 SEC Prothrombin Time INR (Non-Therap) 1.0 Activated Partial Thromboplast Time 25.2 SEC Sodium Level 143 mmol/L Potassium Level 4.3 mmol/L Chloride Level 107.0 mmol/L Carbon Dioxide Level 24.8 mmol/L Anion Gap 15.5 Blood Urea Nitrogen 17 mg/dL Creatinine 1.07 mg/dL Estimated GFR () 59.9 BUN/Creatinine Ratio 15.0 Glucose Level 143 mg/dL Calcium Level 8.8 mg/dL Total Bilirubin 0.4 mg/dL Aspartate Amino Transf (AST/SGOT) 21 U/L Alanine Aminotransferase (ALT/SGPT) 23 U/L Alkaline Phosphatase 71 U/L Total Protein 6.8 g/dL Albumin 3.0 g/dL Globulin 3.8 Percent Immature Gran (Cell Imm) 0.30 % 0.10 % Scheduled Carvedilol (Carvedilol), 3.125 MG PO BID Donepezil Hcl (Aricept), 10 MG PO HS Insulin Degludec/Liraglutide (Xultophy 100 Unit-3.6MG/ml Pen), 16 UNIT SQ HS, ( Reported) Lisinopril (Lisinopril), 10 MG PO DAILY Olanzapine (Zyprexa Zydis), 10 MG SL HS Olanzapine (Zyprexa Zydis), 5 MG SL DAILY Omeprazole (Omeprazole), 20 MG PO DAILY Discontinued Medications Exenatide Microspheres (Bydureon), 2 MG SQ WEEKLY, (Reported) Discontinued Reason: No Longer Taking Insulin Detemir (Levemir), 20 UNIT SQ HS, (Reported) Discontinued Reason: No Longer Taking Trazodone Hcl (Trazodone Hcl), 100 MG PO HS Discontinued Reason: No Longer Taking Sepsis Evaluation @ Discharge Course Blood Pressure Systolic: 165 Blood Pressure Diastolic: 72 Blood Pressure Mean: 103 Notes see dictated report Plan Discharge Date: Oct 08, 2017 Dicharge DX: 1. Internal hemorrhoid hemorrhage, 2. Dementia, 3. Hypertension Discharge Disposition: Stable Plan Resume home medications Diet and activity as tolerated Follow up with PCP next available appointment Recommend outpatient follow up with Surgery for possible anoscopy versus flex sigmoidoscopy Discharge plans discussed with patient and family, they do understand and concur with plans Time spent 25 minutes STEVEN DAMON MD Oct 08, 2017 10:20
[2017-10-08] MEDS ORDERED: ZESTRIL PO SCH (10:30)
[2017-10-08] MEDS ORDERED: COREG PO SCH (10:30)
--- NOTE | 2017-10-08 10:47 | NUR ---
WHEN THIS NURSE ENTERED THE PtS ROOM TO GIVE DISCHARGE PAPER, Pt WAS IN TOILET AND NOTICED SOME BLOOD IN RECTUM WHILE TRYING TO HAVE BM, NO BM NOTED AT THIS TIME, FAMILY ( DAUGHTERS) NOT SURE WHEN SHE HAD BM LAST TIME, DAUGHTER AWARE THAT Pt " HAVING INTERNAL HEMORRHOIDS PER DR. DAMON" DR. DAMON DISCUSSED WITH THE DAUGHTER OF Pt EARLIER. DAUGHTER DO NOT WANT TO SIGN THE DISCHARGE PAPER UNTIL Pt HAVE BM AND REQUESTED TO GET PRONE JUICE, PRUNE JUICE OFFERED TO THE Pt BY PEÑA ALVARADO. NOTIFIED DR. DAMON AND CHARGE NURSE ONEIL HANNA.
--- NOTE | 2017-10-08 11:00 | NUR ---
DISCHARGED PT DISCHARGED FROM THE UNIT TO HOME ASSISTED BY DAUGHTERS AND HARD METALS ENGRAVER HAND CHRISTIANO IN WHEELCHAIR TO MAIN EXIT, DISCHARGE PACKET WAS DISCUSSED WITH DAUGHTER SWETA.
--- NOTE | 2017-10-08 11:11 | HPH ---
ADMIT DATE: 10/08/2017 ADMISSION HISTORY AND PHYSICAL AND DISCHARGE SUMMARY CHIEF COMPLAINT: Reported lower GI bleed. HISTORY OF PRESENT ILLNESS: The patient is a 81-year-old woman with a past medical history significant for dementia, bipolar disorder, diabetes mellitus type 2 and hypertension. She lives with family. She denies any falls or trauma. 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 She was brought to the ER by family because of reported history of lower GI bleed. She had a bowel movement and had reported bright red blood per rectum. There is no reported pain and nausea. She has relatively poor functional status, but according to family, she has never had this happen before. Workup in ER did not reveal any signs of active bleeding. The stool workup was negative for occult blood. Her hemoglobin is 13.1 and actually increased to 13.4 in her short admission period. 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 PAST SURGICAL HISTORY: She has a appendectomy, and heart catheterization. ALLERGIES: NO KNOWN DRUG ALLERGIES. HOME MEDICATIONS: List includes carvedilol 3.125 mg p.o. b.i.d., Aricept 10 mg at night, she takes an insulin regimen at night, lisinopril 10 mg daily, olanzapine 5 mg tablet, she takes 10 mg sublingual at night and 5 mg sublingual in the morning, omeprazole 20 mg daily. SOCIAL HISTORY: Lives with family. No alcohol, tobacco or illicit drug use history. FAMILY HISTORY: Negative for early coronary artery disease or diabetes. REVIEW OF SYSTEMS: Difficult to obtain due to advanced dementia and hearing deficits. CARDIAC: Denied any chest pain or shortness of breath. PULMONARY: No cough, sputum production or pleuritic chest pain. GASTROINTESTINAL: No nausea, vomiting, diarrhea or constipation. All else negative in 10 point review of system except as in HPI. PHYSICAL EXAMINATION: VITAL SIGNS: Upon arrival to the ER, height 160.02 cm, weight 72.12 kilograms. Temperature 97.5, pulse 78, respiratory rate 16, blood pressure 164/74, O2 saturation 93% on room air. GENERAL: She is alert, in no acute distress, chronic ill-appearing lady. HEENT: Pupils equal, round, reactive to light. Sclerae are anicteric. Oropharynx is clear. Mucous membranes are moist. NECK: Supple, no lymphadenopathy. CARDIOVASCULAR: At time of exam was regular rate and rhythm. LUNGS: Clear bilaterally. No wheezing. ABDOMEN: Soft. Bowel sounds are present, nontender to palpation. EXTREMITIES: No cyanosis, clubbing or significant edema. NEUROLOGIC: Grossly nonfocal. INITIAL LABORATORY DATA: CBC: White count 11.3, hemoglobin 13.1 and platelets 152. Differential: 68% neutrophils, 23% lymphocytes, 7% monocytes. Repeat hemoglobin is 13.4 five hours later. Sodium 143, potassium 4.3, chloride 107, CO2 is 25, BUN 17, creatinine 1.07, glucose 143, calcium is 8.8, total bilirubin 0.4, AST 21, ALT is 23, alkaline phosphatase 71, total protein 6.8, albumin 3.0, PT of 10.0, PTT 25.2. Stool is negative for occult blood. ASSESSMENT AND PLAN: The patient is a 81-year-old woman here with internal hemorrhoid with episodic hemorrhage by history with history of Lewy body dementia and hypertension. 1. We will continue cardiovascular medications. 2. IV fluid hydration. 3. Appropriate p.r.n. pain and nausea medication. 4. There is no clear evidence of active GI bleed. Hemoglobin has actually increased, it is stable. DISPOSITION: Routine discharge home. DISCHARGE MEDICATIONS: Resume her previous medications. DISCHARGE ACTIVITY: As tolerated although is fairly limited due to her chronic asthenia. DISCHARGE FOLLOWUP: With PCP next available and also recommended follow up with General Surgery for possible endoscopy versus flexible sigmoidoscopy. Discharge plans were discussed with the patient. Daughter is the primary decision maker. She does understand and concur. Time spent on H and P and discharge is 45 minutes. Silverio Quiñonez MD DR: UBALDO/jewel JOB# [id number] ADRIANO
[2017-10-08] MEDS ORDERED: ARICEPT PO SCH (21:00)
[2017-10-08] MEDS ORDERED: ZYPREXA ZYDIS SL SCH (21:00)
[2017-10-09] MEDS ORDERED: ZYPREXA ZYDIS SL SCH (09:00)
== END 2017-10-08 12:11 | disposition home or self-care (01) ==
LOC: ER 01:24 → MS 02:29
PROVIDERS: ADMIT Internal Medicine; ATTEND Internal Medicine
DX: K92.2 Gastrointestinal hemorrhage, unspecified (principal); E11.9 Type 2 diabetes mellitus without complications; I10 Essential (primary) hypertension; F31.9 Bipolar disorder, unspecified; F02.80 Dementia in other diseases classified elsewhere, unspecified severity, without behavioral disturbance, psychotic disturbance, mood disturbance, and anxiety; H91.10 Presbycusis, unspecified ear; H91.92 Unspecified hearing loss, left ear; Z79.899 Other long term (current) drug therapy; Z98.890 Other specified postprocedural states
CPT/HCPCS: 36415; 80053; 82272; 85025 ×2; 85610; 85730; 96361; 96374; 99285; C9113; G0378 ×10; J7030

== ENCOUNTER 2017-10-14 16:55 | Emergency (ER) | payer OTHER ==
[~2017-10-14] VITALS: Ht 160 cm; Wt 72.1 kg
[~2017-10-14 16:55] MED LIST changes: +INSU3INS2 SQ
[2017-10-14 17:01] VITALS: BP 135/67
--- NOTE | 2017-10-14 17:08 | ER.PDOC ---
General Chief Complaint: General Complaint Stated Complaint: GENERAL WEAKNESS TRAVEL OUT OF US: No Time seen by MD: 17:00 Source: patient, family, EMS Exam Limitations: no limitations History of Present Illness Timing/Duration: 24 hours Severity: mild Allergies: Coded Allergies: No Known Allergies (Unverified , 07/01/16) Home Meds Active Scripts Olanzapine (ZYPREXA ZYDIS) 5 Mg Tab.rapdis, 5 MG SL DAILY for 30 Days, #30 Prov:MARGO URBANO MD 08/14/17 Omeprazole (OMEPRAZOLE) 20 Mg Tablet.dr, 20 MG PO DAILY for ulcer prevention, # 30 TAB 3 Refills Prov:ADONAY VIERA MD 07/11/16 Olanzapine (ZYPREXA ZYDIS) 5 Mg Tab.rapdis, 10 MG SL HS, #30 Prov:MARGO URBANO MD 07/11/16 Donepezil Hcl (ARICEPT) 5 Mg Tablet, 10 MG PO HS, #30 TABLET Prov:MARGO URBANO MD 07/11/16 Lisinopril (LISINOPRIL) 10 Mg Tablet, 10 MG PO DAILY for HTN, #30 TABLET Prov:ADONAY VIERA MD 06/22/16 Carvedilol (CARVEDILOL) 3.125 Mg Tablet, 3.125 MG PO BID for HTN, #30 TABLET Prov:ADONAY VIERA MD 06/22/16 Reported Medications Insulin Degludec/Liraglutide (Xultophy 100 Unit-3.6MG/ml Pen) 100 Unit-3.6 Mg/ Ml (3 Ml) Insuln.pen, 16 UNIT SQ HS 10/08/17 Discontinued Reported Medications Exenatide Microspheres (BYDUREON) 2 Mg Vial, 2 MG SQ WEEKLY, VIAL 05/26/17 Insulin Detemir (LEVEMIR) 100 Unit/1 Ml Vial, 20 UNIT SQ HS, VIAL 05/26/17 Discontinued Scripts Trazodone Hcl (TRAZODONE HCL) 50 Mg Tablet, 100 MG PO HS, #30 TABLET Prov:MARGO URBANO MD 07/11/16 Past Medical History Medical History: diabetes, GERD, high cholesterol, hypertension Surgical History: appendectomy, Family History Significant Family History: no pertinent family hx Social History Smoking: non-smoker Alcohol Use: none Drug Use: none Reviewed Nursing Reviewed: Vital Signs, Abn. Noted Review of Systems Constitutional: no symptoms reported EENTM: no symptoms reported Respiratory: no symptoms reported Cardiovascular: no symptoms reported Gastrointestinal: no symptoms reported Genitourinary: no symptoms reported Musculoskeletal: no symptoms reported Skin: no symptoms reported Psychiatric/Neurological: no symptoms reported Hematologic/Lymphatic: no symptoms reported Immunological/Allergic: no symptoms reported Physical Exam General Appearance: No Apparent Distress EENT: eyes nml inspection Neck: Non-Tender Respiratory: chest non-tender CVS: reg rate & rhythm Gastrointestinal: Normal Bowel Sounds Rectal: Normal Exam Back: Normal Inspection Extremities: Normal Range of Motion Neurologic/Psychiatric: mold clamper II-XII NML as Tested, Motor Weakness Skin: Pallor Lymphatic: No Adenopathy Results/Orders Results/Orders Laboratory Tests Test 10/14/17 17:11 White Blood Count 7.8 10^3/uL (4.5-11.0) Red Blood Count 4.47 10^6/uL (4.00-5.20) Hemoglobin 13.1 g/dL (12.0-15.0) Hematocrit 40.1 % (36.0-46.0) Mean Corpuscular Volume 89.7 fL (78-100) Mean Corpuscular Hemoglobin 29.3 pg (26-34) Mean Corpuscular Hemoglobin Concent 32.7 g/dL (33-37) Red Cell Distribution Width 13.4 % (11.5-14.5) Platelet Count 154 10^3/uL (150-400) Mean Platelet Volume 12.3 fL (7.8-11.0) Neutrophils (%) (Auto) 58.4 % (41.0-85.0) Lymphocytes (%) (Auto) 30.4 % (24.0-44.0) Monocytes (%) (Auto) 8.9 % (5.0-12.0) Neutrophils # (Auto) 4.6 10^3/uL (1.8-7.7) Lymphocytes # (Auto) 2.4 10^3/uL (1.0-4.8) Monocytes # (Auto) 0.7 10^3/uL (0.3-0.8) Absolute Immature Granulocyte (auto 0.01 10^3 u/L (0-2) Eosinophils % 1.7 % (0.0-5.0) Basophils % 0.5 % (0.0-0.2) Basophils # 0.0 10^3/uL (0.0-0.1) Eosinophil Count 0.1 10^3/uL (0.0-0.2) Prothrombin Time 10.5 SEC (9.8-11.9) Prothrombin Time INR (Non-Therap) 1.1 Activated Partial Thromboplast Time 25.6 SEC (24.67-30.72) D-Dimer 1.20 mg/L (0.19-0.49) Sodium Level 144 mmol/L (132-145) Potassium Level 4.2 mmol/L (3.6-5.2) Chloride Level 107.0 mmol/L (96-109) Carbon Dioxide Level 27.2 mmol/L (20.0-32) Anion Gap 14.0 Blood Urea Nitrogen 17 mg/dL (7-18) Creatinine 0.91 mg/dL (0.59-1.40) Estimated GFR () 72.2 (>/=60) BUN/Creatinine Ratio 18.0 Glucose Level 143 mg/dL (70-110) Calcium Level 8.9 mg/dL (8.4-10.5) Total Bilirubin 0.3 mg/dL (0.2-1.0) Aspartate Amino Transf (AST/SGOT) 21 U/L (0-35) Alanine Aminotransferase (ALT/SGPT) 21 U/L (12-78) Alkaline Phosphatase 79 U/L (50-136) Total Creatine Kinase 58 U/L (26-192) Creatine Kinase MB 0.5 ng/mL (0.5-3.6) Troponin I < 0.02 ng/mL (0.00-0.05) Pro-B-Type Natriuretic Peptide 70 pg/mL (0-450) Total Protein 6.4 g/dL (6.4-8.2) Albumin 3.0 g/dL (3.4-5.0) Globulin 3.4 Percent Immature Gran (Cell Imm) 0.10 % (0.00-0.50) Helicobacter pylori Screen NEGATIVE (NEGATIVE) EKG/XRAY/CT/US EKG: NSR, no ST T wave changes Departure Time of Disposition: 18:00 Disposition: 01 HOME, SELF-CARE Impression: Primary Impression: Medication side effect Condition: Stable Referrals: ADONAY VIERA MD (PCP) PRIMARY CARE PROVIDER Duration or Time Spent with Pa: 2 hrs JENNIFER CACERES MD Oct 14, 2017 17:08
[2017-10-14 17:16] LABS: BASOPHIL % 0.5 % (0.0-0.2); EOSINOPHIL # 0.1 10^3/uL (0.0-0.2); EOSINOPHIL % 1.7 % (0.0-5.0); HEMOGLOBIN 13.1 g/dL (12.0-15.0); LYMPHOCYTES # 2.4 10^3/uL (1.0-4.8); LYMPHOCYTES % 30.4 % (24.0-44.0); MEAN CELL HGB 29.3 pg (26-34); MEAN CELL HGB CONCENTRATION 32.7 g/dL (33-37); MEAN CORP VOLUME 89.7 fL (78-100); MEAN PLATELET VOLUME 12.3 fL (7.8-11.0); MONOCYTES # 0.7 10^3/uL (0.3-0.8); MONOCYTES % 8.9 % (5.0-12.0); NEUTROPHIL # 4.6 10^3/uL (1.8-7.7); NEUTROPHILS % 58.4 % (41.0-85.0); RED CELL DISTRIBUTION WIDTH 13.4 % (11.5-14.5); WHITE BLOOD CELL 7.8 10^3/uL (4.5-11.0)
--- NOTE | 2017-10-14 17:27 | DIREP ---
PROCEDURE:CHEST 1 VIEW COMPARISON:[facility], CR, XRAY CHEST SINGLE VW, 08/04/2017, 03:50 PM. [facility], CR, XRAY CHEST SINGLE VW, 01/08/2017, 02:43 PM. [facility], CHARISMA, XRAY CHEST 2 VWS, 09/18/2016, 02:09 PM. INDICATIONS:weak FINDINGS: LUNGS/PLEURA:No significant pulmonary parenchymal abnormalities. No effusions. VASCULATURE:Normal. Unremarkable pulmonary vasculature. CARDIAC:Normal. No cardiac silhouette abnormality or cardiomegaly. MEDIASTINUM:Normal. No visible mass or adenopathy. BONES:Mild degenerative disc disease and spondylosis without visible acute abnormalities. OTHER:Negative. CONCLUSION:No acute cardiopulmonary abnormalities. Dictated by: Coy Davis M.D. on 10/14/2017 at 05:26 PM
--- NOTE | 2017-10-14 17:36 | PCM.EKG ---
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
[2017-10-14 17:46] LABS: ALANINE AMINOTRANSFERASE(ML) 21 U/L (12-78); ALKALINE PHOSPHATASE 79 U/L (50-136); ASPARTATE AMINO TRANSFERASE 21 U/L (0-35); CALCIUM 8.9 mg/dL (8.4-10.5); CARBON DIOXIDE 27.2 mmol/L (20.0-32); GLUCOSE 143 mg/dL (70-110)
[2017-10-14 18:14] LABS: BILIRUBIN,URINE NEGATIVE (NEGATIVE); UROBILINOGEN,URINE NORMAL (NEGATIVE)
[2017-10-14 18:21] VITALS: BP 121/64
[2017-10-14 18:23] LABS: APPEARANCE,URINE CLEAR (CLEAR); UA COLOR YELLOW (YELLOW); WBC,URINE 0-2 WBC/HPF (0-2)
--- NOTE | 2017-10-14 18:35 | NUR ---
IV DC'D IV DC'D BY LUZ,RN CATHETER INTACT
[2017-10-14 18:36] VITALS: BP 121/64
== END 2017-10-14 18:35 | disposition home or self-care (01) ==
LOC: ER 16:55 → EDBD 16:55 → ER 18:35
DX: R53.1 Weakness (principal); T50.995A Adverse effect of other drugs, medicaments and biological substances, initial encounter; E78.00 Pure hypercholesterolemia, unspecified; E11.9 Type 2 diabetes mellitus without complications; K21.9 Gastro-esophageal reflux disease without esophagitis; I10 Essential (primary) hypertension; Z79.4 Long term (current) use of insulin; Z90.89 Acquired absence of other organs; Y92.89 Other specified places as the place of occurrence of the external cause
CPT/HCPCS: 36415; 71045; 80053; 81000; 82550; 82553; 83880; 84484; 85025; 85379; 85610; 85730; 86677; 93005; 99285

== ENCOUNTER → 2018-01-08 | Outpatient (CLI) | payer OTHER ==
[~2018-01-08] MED LIST changes: -METF10002 PO; +METF10003 PO
[2018-01-08 17:00] LABS: HEMOGLOBIN 13.8 g/dL (12.0-15.0); MEAN CELL HGB CONCENTRATION 33.3 g/dL (33-37); MEAN PLATELET VOLUME 12.8 fL (7.8-11.0); RED CELL DISTRIBUTION WIDTH 13.6 % (11.5-14.5); WHITE BLOOD CELL 8.3 10^3/uL (4.5-11.0)
[2018-01-08 17:01] LABS: BILIRUBIN,URINE NEGATIVE (NEGATIVE); UROBILINOGEN,URINE NORMAL (NEGATIVE)
[2018-01-08 17:14] LABS: APPEARANCE,URINE SLIGHTLY HAZY (CLEAR); UA COLOR YELLOW (YELLOW)
== END | disposition home or self-care (01) ==
LOC: NPLAB 16:46
PROVIDERS: ATTEND Internal Medicine
DX: G93.40 Encephalopathy, unspecified (principal); R35.0 Frequency of micturition; I10 Essential (primary) hypertension; E11.9 Type 2 diabetes mellitus without complications; R79.89 Other specified abnormal findings of blood chemistry; Z79.899 Other long term (current) drug therapy
CPT/HCPCS: 36415; 81000; 82607; 82746; 84145; 85027; 86140; 87086

== ENCOUNTER → 2018-01-16 | Outpatient (CLI) | payer OTHER ==
[2018-01-16 15:18] LABS: BILIRUBIN,URINE NEGATIVE (NEGATIVE); UROBILINOGEN,URINE NORMAL (NEGATIVE)
[2018-01-16 15:34] LABS: APPEARANCE,URINE CLEAR (CLEAR); UA COLOR YELLOW (YELLOW)
== END | disposition home or self-care (01) ==
LOC: NPLAB 14:51
PROVIDERS: ATTEND Internal Medicine
DX: R30.9 Painful micturition, unspecified (principal); R82.90 Unspecified abnormal findings in urine; I10 Essential (primary) hypertension; E11.9 Type 2 diabetes mellitus without complications
CPT/HCPCS: 81002; 87086

== ENCOUNTER 2018-01-24 12:36 | Inpatient (IN) | payer OTHER ==
[~2018-01-24] VITALS: Ht 160 cm; Wt 74.4 kg
--- NOTE | 2018-01-24 12:44 | NUR ---
Triage Brought to room 8 and monitors applied. RT here for EKG. Patient's daughter says patient has been increasingly confused, attempting to wander off and is having auditory and visual hallucinations. Vital signs obtained and are within normal limits. Attempted to get U/A, but patient is unable to void at this time. Family states that the patient is finishing up an antibiotic for a recent UTI within the last week. Doctor here to see the patient. Patient is also accompanied by a caregiver. Will f/u with further orders. lw
--- NOTE | 2018-01-24 12:59 | PCM.EKG ---
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
[2018-01-24 13:01] VITALS: BP 158/70
--- NOTE | 2018-01-24 13:16 | ER.PDOC ---
General Chief Complaint: Medical Clearance Stated Complaint: MEDICAL CLEARANCE, WORSENING DEMENTIA Time seen by MD: 13:22 Source: patient Exam Limitations: no limitations History of Present Illness Timing/Duration: week, getting worse Intent: No prior thoughts of Severity: moderate Associated Symptoms: Depressed Allergies: Coded Allergies: No Known Allergies (Unverified , 07/01/16) Home Meds Active Scripts Trazodone Hcl (TRAZODONE HCL) 50 Mg Tablet, 50 MG PO HS for 30 Days, TABLET Prov:STEVEN GONZÁLES IV, MD 01/28/18 Omeprazole (OMEPRAZOLE) 20 Mg Tablet.dr, 20 MG PO DAILY for ulcer prevention, # 30 TAB 3 Refills Prov:ADONAY VIERA MD 07/11/16 Olanzapine (ZYPREXA ZYDIS) 5 Mg Tab.rapdis, 10 MG SL HS, #30 Prov:MARGO URBANO MD 07/11/16 Donepezil Hcl (ARICEPT) 5 Mg Tablet, 10 MG PO HS, #30 TABLET Prov:MARGO URBANO MD 07/11/16 Lisinopril (LISINOPRIL) 10 Mg Tablet, 10 MG PO DAILY for HTN, #30 TABLET Prov:ADONAY VIERA MD 06/22/16 Carvedilol (CARVEDILOL) 3.125 Mg Tablet, 3.125 MG PO BID for HTN, #30 TABLET Prov:ADONAY VIERA MD 06/22/16 Reported Medications Dextran 70/Hypromellose (ARTIFICIAL TEARS EYE DROPS) 15 Ml Drops, 1 DROP OP QID for DRY EYES, #15 MILLILITER 5 Refills 01/24/18 Alendronate Sodium (ALENDRONATE SODIUM) 70 Mg Tablet, 70 MG PO OT for WEEKLY, TABLET 01/24/18 Insulin Degludec/Liraglutide (Xultophy 100 Unit-3.6MG/ml Pen) 100 Unit-3.6 Mg/ Ml (3 Ml) Insuln.pen, 16 UNIT SQ HS 10/08/17 Past Medical History Medical History: diabetes Surgical History: appendectomy, LMP (females 10-50): postmenopause Family History Significant Family History: no pertinent family hx Social History Smoking: non-smoker Alcohol Use: none Drug Use: none Reviewed Nursing Reviewed: Vital Signs, Abn. Noted Review of Systems Constitutional: no symptoms reported All Other Systems: Reviewed and Negative Physical Exam General Appearance: No acute distress, Lethargic EENT: No nystagmus, PERRLA, EOM's intact, NML ENT inspection, Pharynx nml, NML gag reflex Neck: Non-Tender, Full Range of Motion, Supple, Normal Inspection Respiratory: chest non-tender, lungs clear, normal breath sounds, no respiratory distress, no accessory muscle use Cardiovascular: Normal Peripheral Pulses, Regular Rate, Rhythm, No Edema, No Gallop, No JVD, No Murmur Gastrointestinal: Normal Bowel Sounds, No Organomegaly, No Pulsatile Mass, Non Tender, Soft Extremities: Non-Tender, Normal Range of Motion, No Evidence of Trauma, No Edema Neurological/Psychiatric: Alert, Normal Mood/Affect, Calm, animal technician II-XII NML as Tested, Oriented x 3 Appearance/Memory/Insight: Appropriate Appearance, Appropriate Insight, Neat, No Memory Impairment Thoughts/Hallucinations: Auditory Hallucinations, Tactile Hallucinations, Visual Hallucinations Skin: Normal Color, Warm/Dry Results/Orders Results/Orders Laboratory Tests Test 01/24/18 13:17 01/24/18 14:59 White Blood Count 8.5 10^3/uL (4.5-11.0) Red Blood Count 4.68 10^6/uL (4.00-5.20) Hemoglobin 14.0 g/dL (12.0-15.0) Hematocrit 42.5 % (36.0-46.0) Mean Corpuscular Volume 90.8 fL (78-100) Mean Corpuscular Hemoglobin 29.9 pg (26-34) Mean Corpuscular Hemoglobin Concent 32.9 g/dL (33-37) Red Cell Distribution Width 13.5 % (11.5-14.5) Platelet Count 157 10^3/uL (150-400) Mean Platelet Volume 12.2 fL (7.8-11.0) Neutrophils (%) (Auto) 65.7 % (41.0-85.0) Lymphocytes (%) (Auto) 23.4 % (24.0-44.0) Monocytes (%) (Auto) 7.4 % (5.0-12.0) Neutrophils # (Auto) 5.6 10^3/uL (1.8-7.7) Lymphocytes # (Auto) 2.0 10^3/uL (1.0-4.8) Monocytes # (Auto) 0.6 10^3/uL (0.3-0.8) Absolute Immature Granulocyte (auto 0.03 10^3 u/L (0-2) Eosinophils % 2.6 % (0.0-5.0) Basophils % 0.5 % (0.0-0.2) Basophils # 0.0 10^3/uL (0.0-0.1) Eosinophil Count 0.2 10^3/uL (0.0-0.2) Sodium Level 141 mmol/L (132-145) Potassium Level 4.7 mmol/L (3.6-5.2) Chloride Level 106.0 mmol/L (96-109) Carbon Dioxide Level 20.3 mmol/L (20.0-32) Anion Gap 19.4 Blood Urea Nitrogen 13 mg/dL (7-18) Creatinine 0.90 mg/dL (0.59-1.40) Estimated GFR () 72.9 (>/=60) BUN/Creatinine Ratio 14.0 Glucose Level 167 mg/dL (70-110) Calcium Level 8.3 mg/dL (8.4-10.5) Total Bilirubin 0.3 mg/dL (0.2-1.0) Aspartate Amino Transf (AST/SGOT) 23 U/L (0-35) Alanine Aminotransferase (ALT/SGPT) 24 U/L (12-78) Alkaline Phosphatase 74 U/L (50-136) Total Creatine Kinase 90 U/L (26-192) Creatine Kinase MB 0.5 ng/mL (0.5-3.6) Troponin I < 0.02 ng/mL (0.00-0.05) C-Reactive Protein 0.11 mg/dL (0.00-5.00) Pro-B-Type Natriuretic Peptide 95 pg/mL (0-450) Total Protein 6.8 g/dL (6.4-8.2) Albumin 3.2 g/dL (3.4-5.0) Globulin 3.6 Vitamin B12 Level 840 pg/mL (193-986) Folate 52.9 ng/mL (8.6-58.9) Thyroid Stimulating Hormone (TSH) 2.363 mIU/mL (0.358-3.740) Valproic Acid (Depakene) Level < 3 ug/mL (50-100) O'Brien Level < 0.20 mmol/L (0.6-1.2) Percent Immature Gran (Cell Imm) 0.40 % (0.00-0.50) Urine Collection Type CCMS Urine Color YELLOW (YELLOW) Urine Appearance CLEAR (CLEAR) Urine Bilirubin NEGATIVE MG/DL (NEGATIVE) Urine Ketones NEGATIVE (NEGATIVE) Urine Specific [place] 1.010 (1.005-1.035) Urine pH 6 (5.0-6.0) Urine Protein NEGATIVE (NEGATIVE) Urine Urobilinogen NORMAL (NEGATIVE) Urine Nitrate NEGATIVE (NEGATIVE) Urine Leukocyte Esterase 100/ul 1+ (NEGATIVE) Urine Blood NEGATIVE (NEGATIVE) Urine RBC NONE SEEN RBC/HPF (NONE Urine WBC 2-5 WBC/HPF (0-2) Urine Squamous Epithelial Cells RARE #/HPF (FEW) Urine Renal Epithelial Cells RARE #/HPF (NONE SEEN) Urine Bacteria RARE (NONE SEEN) Urine Glucose NORMAL (NEGATIVE) Urine Opiates, Qualitative NEGATIVE ng/mL (CUT-OFF:300) Urine Methadone, Qualitative NEGATIVE ng/mL (CUT-OFF:300) Urine Amphetamine Qualitative NEGATIVE ng/mL (CUTOFF:1000) Urine Barbiturates, Qualitative NEGATIVE ng/mL (CUT-OFF:200) Urine Phencyclidine Screen NEGATIVE ng/mL (CUT-OFF:25) Urine MDMA (Ecstasy), Qualitative NEGATIVE ng/mL (CUT-OFF:300) Urine Benzodiazepines Screen NEGATIVE ng/mL (CUT-OFF:200) Urine Cocaine Qualitative NEGATIVE ng/mL (CUT-OFF:300) Ur Tetrahydrocannabinol (THC) Scrn NEGATIVE ng/mL (CUT-OFF:50) Microbiology Date/Time Source Procedure Growth Status 01/24/18 14:59 Urine,Clean Catch Urine Culture - Final Eschericha Coli Complete Departure Time of Disposition: 07:33 Disposition: 01 HOME, SELF-CARE Impression: Primary Impression: Dementia Condition: Stable Referrals: ADONAY VIERA MD (PCP) PRIMARY CARE PROVIDER Scripts Trazodone Hcl (TRAZODONE HCL) 50 Mg Tablet 50 MG PO HS for 30 Days, TABLET Prov: STEVEN GONZÁLES IV, MD 01/28/18 Comments medically clear for admission to [facility] Duration or Time Spent with Pa: 2 hrs JENNIFER CACERES MD Jan 24, 2018 13:16
[2018-01-24 13:23] LABS: BASOPHIL % 0.5 % (0.0-0.2); EOSINOPHIL # 0.2 10^3/uL (0.0-0.2); EOSINOPHIL % 2.6 % (0.0-5.0); LYMPHOCYTES % 23.4 % (24.0-44.0); MEAN CELL HGB 29.9 pg (26-34); MEAN CELL HGB CONCENTRATION 32.9 g/dL (33-37); MEAN CORP VOLUME 90.8 fL (78-100); MEAN PLATELET VOLUME 12.2 fL (7.8-11.0); MONOCYTES # 0.6 10^3/uL (0.3-0.8); MONOCYTES % 7.4 % (5.0-12.0); NEUTROPHIL # 5.6 10^3/uL (1.8-7.7); NEUTROPHILS % 65.7 % (41.0-85.0); RED CELL DISTRIBUTION WIDTH 13.5 % (11.5-14.5); WHITE BLOOD CELL 8.5 10^3/uL (4.5-11.0)
--- NOTE | 2018-01-24 13:55 | DIREP ---
PROCEDURE:CHEST 1 VIEW COMPARISON:[facility], [facility], XRAY CHEST SINGLE VW, 10/14/2017, 05:04 PM. INDICATIONS:MEDICAL CLEARANCE FINDINGS: LUNGS/PLEURA:Low lung volumes. Mild interstitial prominence throughout the bilateral hemithoraces may reflect senescent changes accentuated by low lung volumes. No suspicious airspace consolidation, pleural effusion or pneumothorax is identified. VASCULATURE:Normal. Unremarkable pulmonary vasculature. CARDIAC:Normal. No cardiac silhouette abnormality or cardiomegaly. MEDIASTINUM:Mediastinal contours are within normal limits with calcifications of the aorta. BONES:Degenerative changes of the shoulders and spine. OTHER:Negative. CONCLUSION: 1. Low lung volumes with apparent senescent changes. No superimposed acute cardiopulmonary abnormality. Dictated by: Richy Quiñonez M.D. On 01/24/2018 at 01:52 PM
--- NOTE | 2018-01-24 13:57 | NUR ---
Rad Radiology was in the room for x-ray. FAmily x 2. Patient resting comfortably, denies needs. No change in vitals. lw
[2018-01-24 14:37] LABS: ALANINE AMINOTRANSFERASE(ML) 24 U/L (12-78); ALKALINE PHOSPHATASE 74 U/L (50-136); ASPARTATE AMINO TRANSFERASE 23 U/L (0-35); CALCIUM 8.3 mg/dL (8.4-10.5); CARBON DIOXIDE 20.3 mmol/L (20.0-32); GLUCOSE 167 mg/dL (70-110)
[2018-01-24 15:10] LABS: BILIRUBIN,URINE NEGATIVE (NEGATIVE); UROBILINOGEN,URINE NORMAL (NEGATIVE)
[2018-01-24 15:12] LABS: APPEARANCE,URINE CLEAR (CLEAR); UA COLOR YELLOW (YELLOW)
--- NOTE | 2018-01-24 15:15 | NUR ---
[facility] SPEAKING WITH DR DAMON. PATIENT ACCEPTED TO [facility]
[2018-01-24] MEDS ORDERED: ALEN70TA5 PO (15:59)
[2018-01-24 16:30] VITALS: BP 164/82
--- NOTE | 2018-01-24 16:30 | NUR ---
ARRIVED TO UNIT ARRIVED TO UNIT VIA WHEELCHAIR. CAREGIVER/SETTER AT SIDE. BELONGINGS IN HAND. ALERT AND ORIENTED X1 TO PERSON ONLY. NO DISTRESS NOTED. CALM AND COOPERATIVE. DENIES ANY PAIN AT THIS TIME.
--- NOTE | 2018-01-24 16:40 | NUR ---
VSEE DR. GONZÁLES EVALUATING PT VIA VSEE. PT COOPERATIVE. HARD OF HEARING. JONI DE DIOS RN REPEATED EACH QUESTION TO PT THAT WAS ASKED BY DR. GONZÁLES. RECEIVED NEW MEDICATION ORDERS SEE EMAR.
[2018-01-24] MEDS ORDERED: ATIVAN PO PRN (17:00)
[2018-01-24] MEDS ORDERED: HALDOL PO PRN (17:00)
--- NOTE | 2018-01-24 17:08 | NUR ---
MMSE SCORE 2: FINDINGS INDICATE SEVERE IMPAIRMENT. Addendum: 01/24/18 at 1713 by Rubi DIAZ Amended: Links added.
--- NOTE | 2018-01-24 17:09 | NUR ---
GMAS SCORE 5 AT THIS TIME, BUT PT WAS NOT ABLE TO COGNITIVELY ABLE TO PARTICIPATE DUE TO COGNITION. PT STATED "I DON'T KNOW OR I DON'T UNDERSTAND" ON MANY QUESTIONS. Addendum: 01/24/18 at 1713 by Rubi DIAZ Amended: Links added.
--- NOTE | 2018-01-24 17:10 | NUR ---
SYMPTOMATOLOGY: PT WAS INVOLUNTARILY COMMITTED BY HER DAUGHTER DUE TO BEHAVIORS SHE WAS EXHIBITING AT HOME. PT WAS REPORTEDLY CONFUSED, STEALING KEYS, TRYING TO RUN AWAY. PT WAS FOUND IN THE STREET STATING "SHE WAS WAITING ON THE BUS", AND DAUGHTER STATES SHE WAS HAVING HALLUCINATIONS. SS WILL CONTINUE TO FOLLOW AND ASSIST WITH DISCHARGE PLANNING NEEDS. Addendum: 01/24/18 at 1713 by Rubi DIAZ Amended: Links added.
--- NOTE | 2018-01-24 17:10 | NUR ---
BIOPSYCHOSOCIAL: JOE UNABLE TO COMPLETE ASSESSMENT DUE TO PT'S COGNITION. PT WAS UNABLE TO GIVE ACCURATE HISTORY AT THIS TIME. Addendum: 01/24/18 at 1713 by Rubi DIAZ Amended: Links added.
[2018-01-24] MEDS ORDERED: ALEN70TA3 PO (19:22)
[2018-01-24] MEDS ORDERED: DEXT15DR5 OP (19:22)
[2018-01-24 19:48] VITALS: BP 124/65
--- NOTE | 2018-01-24 19:51 | PSYCH ---
DATE OF SERVICE: 01/24/2018 INITIAL PSYCHIATRIC EVALUATION AND ADMISSION NOTE DATE OF ADMISSION: 01/24/2018 DATE OF SERVICE: 01/24/2018 CHIEF COMPLAINT: The patient was brought on emergency long-term for delusions and hallucinations. She was trying to steal keys and run away from home. HISTORY OF PRESENT ILLNESS: The patient is an 82-year-old female with a long history of mental health problems. She has been treated for delusional disorder, Alzheimer type dementia, depression, anxiety in the past. She has reportedly been trying to steal keys from her daughter and run away from the house. She has had more mood swings recently. She has had increased delusional thinking. She has reportedly had some hallucinations. She is currently on Zyprexa Zydis for delusions and hallucinations. She is a very poor historian. She was oriented to person today. She was able to state her birthday. She was disoriented to date. She was disoriented to the place. She was disoriented to the situation. She reported her mood was happy. She denies feeling depressed. She reports that she has not been sleeping well at night. Per reports, she has not been sleeping well at night. Her appetite is normal. She denies feelings of guilt. She has a poor concentration level that has not changed recently. She denies suicidal or homicidal ideation. She is not currently having manic or hypomanic symptoms. She has a moderate anxiety level. She does get overwhelmed easily at times. She has extremely poor hearing and you have to talk very loudly to get her to understand. She did not appear to be having auditory or visual hallucinations during the interview with Dr. Orellana. She was not in any physical pain today. PAST PSYCHIATRIC HISTORY: The patient has been to the [facility] multiple times in the past. She has been treated for delusions, depression, anxiety and dementia in the past. She has been taking Zyprexa Zydis 10 mg p.o. at bedtime recently. She has also been taking Aricept 10 mg p.o. at bedtime for dementia. She was not able to give any other past psychiatric history. ALLERGIES: No known drug allergies. PAST MEDICAL HISTORY: 1. Poor hearing. 2. Gastroesophageal reflux disease. 3. Hypertension. 4. Alzheimer type dementia. 5. Diabetes. CURRENT MEDICATIONS: 1. Alendronate sodium 70 mg p.o. weekly. 2. Carvedilol 3.125 mg p.o. b.i.d. 3. Aricept 10 mg p.o. at bedtime. 4. Insulin degludec/liraglutide 100 unit/3.6 mg/mL, give 16 units subcutaneous at bedtime. 5. Lisinopril 10 mg p.o. daily. 6. Zyprexa Zydis 10 mg p.o. at bedtime. 7. Omeprazole 20 mg p.o. daily. FAMILY PSYCHIATRIC HISTORY: None reported. SOCIAL HISTORY: The patient lives with her daughter and two grandchildren. She denies using alcohol, illicit drugs, or tobacco. She is retired. OBJECTIVE: VITAL SIGNS: Height is 63 inches, weight is 168 pounds, temperature is 97.1, pulse is 66, respirations are 14, blood pressure is 158/70 and O2 saturations 98% on room air. The patient was in no physical pain or distress at the time of the interview. REVIEW OF SYSTEMS: CONSTITUTIONAL: No recent changes in weight. No fatigue. Positive for insomnia. NEUROLOGICAL: No tremors. No weakness. No dizziness. PSYCHIATRIC: Positive for depression. Positive for anxiety. Positive for delusions. Positive for psychosis. No clyde. GASTROINTESTINAL: No diarrhea, no constipation, no nausea, no vomiting, no GERD symptoms. GENITOURINARY: No problems urinating. No pain on urination. CARDIOVASCULAR: No chest pain or chest palpitations. RESPIRATORY: No shortness of breath. No wheezing or coughing. SKIN: No skin problems reported. ENDOCRINE: No heat or cold intolerance. EXTREMITIES: No swelling or edema. EYES: No recent changes in vision. EARS: No recent changes in hearing. Review of systems, otherwise negative, reviewed by Dr. Orellana. MENTAL STATUS EXAMINATION: MUSCLE STRENGTH AND TONE: Within normal limits for age. GAIT AND STATION: The patient is ataxic and in a wheelchair. APPEARANCE: Appears stated age. Casual attire. Normal weight. ATTITUDE AND BEHAVIOR: Cooperative and pleasant. Good eye contact. No psychomotor activity. MOOD AND AFFECT: Mood is up and down. Affect is guarded. ATTENTION AND CONCENTRATION: Fair attention and fair concentration. ORIENTATION: Disoriented to place, time, and situation. SPEECH: Regular rate and volume. JUDGMENT AND INSIGHT: Poor judgment and poor insight. THOUGHT PROCESS: Loose and tangential. Logical and goal directed at times. LANGUAGE: Portuguese. THOUGHT CONTENT: Negative for suicidal or homicidal ideation. No current auditory or visual hallucinations. No current paranoia. FUND OF KNOWLEDGE: Below average. ASSOCIATIONS: Loose associations at times. Normal associations at times. MEMORY: Recent and remote memory are both impaired. STRENGTHS: Good family support. WEAKNESSES: Poor insight and judgment. ASSESSMENT: Delusional disorder; major depressive disorder; generalized anxiety disorder; Alzheimer type dementia with behavior disturbance. PROGNOSIS: [id number]. ESTIMATED LENGTH OF STAY: 1-2 weeks. TREATMENT PLAN: 1. The patient will be an involuntary admission to the [facility]. The patient will be monitored closely for behaviors. 2. The patient will be started on trazodone 50 mg p.o. at bedtime. The patient will be started on Haldol 2 mg p.o. q. 6 hours p.r.n. delusions. The patient was started on Ativan 0.5 mg p.o. q. 6 hours p.r.n. anxiety. The patient will continue Zyprexa Zydis 10 mg p.o. and Aricept 10 mg p.o. at bedtime. The patient is tolerating those medications fine. 3. The patient will be followed by the general medical doctor for general medical health issues. 4. The patient was encouraged to participate in all groups and activities. Estee Orellana IV MD DR: /jewel JOB# [id number]
[2018-01-24] MEDS: ZYPREXA ZYDIS SL SCH (20:20)
[2018-01-24] MEDS: DESYREL PO SCH (20:20)
[2018-01-24] MEDS: ARICEPT PO SCH (20:20)
--- NOTE | 2018-01-24 20:35 | NUR ---
Medication pt took new medication this HS Desyrl will monitor for s/sx of adverse reaction
[2018-01-24] MEDS ORDERED: GLUCAGEN IM PRN (22:00)
[2018-01-24] MEDS: COREG PO SCH (22:44)
--- NOTE | 2018-01-25 04:55 | NUR ---
pirp- P- BEHAVIORAL DISTURBANCE,RISK FOR FALLS,SLEEP DISTURBANCE I- PROVIDE SAFE AND SUPPORTIVE ENVIRONMENT,PROVIDE MEDICATION ORDERED,Q 15 MIN. MONITORING. R- PT. WAS LYING ON HER BED FOLLOWING SHIFT REPORT,ATTENDED GROUP AFTER ENCOURAGE WAS PROVIDED BUT WAS QUIET AND DID NOT INITIATE INTERACTION. JAMIR EXHIBITED .ORIENTED TO NAME NOT MONTH OR YEAR. SHE SAID SHE DID NOT KNOW ,WHEN ASKED ,IF SHE WAS DEPRESSED AND RATED ANXIETY 2.PT. WALKS USING A WALKER. DID NOT PARTICIPATE IN GROUP ,ATE SNACKS THEN SAT MOST OF GROUP IN CHAIR WITH EYES CLOSED. TOOK MEDICATION ORDERED.PT. HAS RESTED IN BED WITH EYES CLOSED FOR 7.75 HOURS OF THIS TIME TONIGHT. P- WILL CONTINUE WITH CURRENT TX. PLAN.
[2018-01-25] MEDS: HUMULIN R SQ SCH ×4 (07:30→20:21)
[2018-01-25 08:15] VITALS: BP 148/68
[2018-01-25] MEDS: ZESTRIL PO SCH (08:46)
[2018-01-25] MEDS: COREG PO SCH ×2 (08:46→20:24)
[2018-01-25] MEDS ORDERED: ARTIFICIAL TEARS BOTH EYES PRN (10:00)
[2018-01-25] MEDS: PROTONIX PO SCH (10:01)
--- NOTE | 2018-01-25 16:27 | NUR ---
PIRP P: Dementia with behavioral disturbance, fall risk I: Monitor for changes in usual behavior, q15 min monitoring, assess for hallucinations and delusions, assist with differentiating between internal and external reality, give clear and simple instructions, provide 1:1 to encourage expression of feelings, provide task-oriented activities, reinforce unit rules, teach coping skills r/t depression, provide safe and supportive environment, give medications as ordered, alternate rest/activity R: Pt has had flat and withdrawn affect throughout shift, is cooperative. Does not initiate interaction with staff and peers. Takes medications as ordered, has eaten 100% of all meals. Unable to rate depression and anxiety, but when asked if depressed and anxious, states, "yeah." Reports she is anxious "about what's gonna happen to me." Pt is unable to elaborate. Has not exhibited any delusional thoughts or hallucinations. Has not been an elopement risk, participates in some group activities with active engagement. P: Continue to encourage patient to stay up and OOB during day to alternate rest/activity.
--- NOTE | 2018-01-25 16:28 | NUR ---
Dr. Khang Quiñonez notified of need for reconciliation of alendronate and xultophy. Reports that both medications will not be continued @ this time.
[2018-01-25 19:58] VITALS: BP 126/64
[2018-01-25] MEDS: ZYPREXA ZYDIS SL SCH (20:24)
[2018-01-25] MEDS: DESYREL PO SCH (20:24)
[2018-01-25] MEDS: ARICEPT PO SCH (20:25)
--- NOTE | 2018-01-26 04:30 | NUR ---
pirp- p- behavioral disturbance and fall risk I PROVIDE MEDICATION ORDERED,Q 15 MIN. MONITORING,PROVIDE SAFE AND SUPPORTIVE ENVIRONMENT R-ORIENTED TO NAME NOT MONTH OR YEAR. DENIES DEPRESSION,RATED ANXIETY4 . ATTENDED GROUP AND PARTICIPATED WITH ENCOURAGEMENT. PT. DID NOT EXHIBIT HALLUCINATION OR DELUSIONS. QUIET AND DID NOT INITIATE INTERACTION BUT RESPONDED MINIMALLY TO APPROACH AND EXHIBITED KEWEENAW. MEDICATION EDUCATION PROVIDED ON ARICEPT. TOOK MEDICATION ORDERED. P- WILL CONTINUE WITH CURRENT TX. PLAN. Addendum: 01/26/18 at 0444 by Stephani Bowles RN RN PT. DENIED ANXIETY.
[2018-01-26] MEDS: HUMULIN R SQ SCH ×4 (07:30→20:25)
[2018-01-26 07:35] VITALS: BP 113/53
[2018-01-26] MEDS: PROTONIX PO SCH (08:01)
[2018-01-26] MEDS: ZESTRIL PO SCH (08:02)
[2018-01-26] MEDS: COREG PO SCH ×2 (08:02→20:12)
--- NOTE | 2018-01-26 10:48 | NUR ---
[address]48 PATIENT HAD VSEE WITH DR GONZÁLES, NO CHANGES. POSSIBLE GOAL TO DC TOWARDS END OF WEEK.
--- NOTE | 2018-01-26 10:55 | PRM.PN ---
Mood: UP AND DOWN, PROBLEMS WITH MOOD SWINGS Sleep: SLEEPING WELL AT NIGHT Appetite: NORMAL APPETITE Suidical thoughts: NONE REPORTED Homicidal thoughts: NONE REPORTED Recent stressors: STRESS OF MENTAL ILLNES, STRESS OF POOR MEMORY Family support: HER DAUGHTER IS SUPPORTIVE Aggressive Behavior: NONE REPORTED Ability to Perform ADL'sc: NEEDS SOME ASSISTANCE Psychotic sympstoms: DELUSIONAL THINKING, NO HALLUCINATIONS Manic Symptoms: NONE REPORTED Living situation: LIVES WITH HER DAUGHTER Illicit Drug usec: NONE REPORTED Alcoholo use: NONE REPORTED Tobacco use: NONE REPORTED Anxity Symptoms: MODERATE ANXIETY LEVEL Anger/Irritablility: LIMITED ANGER AND IRRITABILITY Muscle Strength & Tone: WNL Gait & Station: Ataxic Appearance: Appears older, Well groomed/hygience, Casual attire, Normal weight Attitude & Behaviour: Cooperative/Pleasant, Good eye contact, Psychomotor retardation Mood & Affect: Euthymic/appr/congruent, Iabile Orientation: Disoriented to place, Disoriented to time, Disoriented to situation Attention/Concentration: Poor attention, Poor concentration Speech: Reg rate/vol/rhyth/prosod Judgement/Insight: Poor judgement, Poor insight Thought Process: Linear/goal directed Language: Serbian Thought content/Abnormal/Psych: Delusions Fund of Knowledge: Other Associations: WNL/Normal Associations Memory (recent and remote): Recent memory repaired, Remote memory repaired Constitutional: None Neurological: None Psychiatric: Depressed, Anxious, Psychosis [place] I: DELUSIONAL DISORDER, DEPRESSION, ANXIETY, DEMENTIA [place] II: DEFERRED [place] III: REFER TO PMH/MEDICAL CHART [place] IV: STRESS OF MENTAL ILLNESS, STRUGGLES WITH CONFUSION [place] V: GAF=25 Assessment/Plan Assessment/Plan Assessment/Plan Vital Signs Date Time Temp Pulse Resp B/P (MAP) Pulse Ox O2 Delivery O2 Flow Rate FiO2 01/26/18 08:02 113/53 01/26/18 08:02 67 01/26/18 07:35 98.3 18 95 01/25/18 19:58 Room Air Allergies Coded Allergies No Known Allergies (Unverified07/01/16) I & O 08/14/17 09:44 Thru 01/26/18 10:36 Intake Total 3738 ml Output Total 200 ml Balance 3538 ml THE PATIENT WAS SEEN BY DR. GONZÁLES VIA TELEMEDICINE EQUIPMENT (VSEE) ALONG WITH THE TREATMENT TEAM. THE PATIENT HAS POOR HEARING. THE PATIENT LIVES WITH HER DAUGHTER. SHE HAS NOT BEEN A BEHAVIOR PROBLEM. SHE TAKES ALL OF HER MEDICATIONS. THE PATIENT SLEEPS A LOT. THE PATIENT SLEPT 7.25 HOURS LAST NIGHT. THE PATIENT HAS A NORMAL APPETITE. THE PATIENT HAS NOT BEEN HAVING AUDITORY OR VISUAL HALLUCINATIONS. THE PATIENT HAS NOT BEEN HAVING DELUSIONAL THINKING. THE PATIENT IS NOT HAVING MANIC OR HYPOMANIC SYMPTOMS. THE PATIENT WAS PLEASANT DURING THE INTERVIEW. ASSESSMENT: DELUSIONAL DISORDER, MAJOR DEPRESSIVE DISORDER, GENERALIZED ANXIETY DISORDER, DEMENTIA WITH BEHAVIOR PROBLEMS PLAN: 1) CONTINUE BEHAVIORAL HEALTH MANAGEMENT AT THE [facility]. 2) CONTINUE CURRENT MEDICATIONS. SHE IS TOLERATING HER MEDICATIONS FINE. STAFF AGREEABLE WITH THE PLAN. THE PATIENT DENIES SI OR HI. 16 MINUTES SPENT IN SUPPORTIVE THERAPY AND INSIGHT ORIENTED THERAPY. Problems: (1) Delusional disorder Status: Acute ICD Code: F22 - Delusional disorders SNOMED: 49758194 (2) Depression, psychotic Status: Acute ICD Code: F32.3 - Major depressive disorder, single episode, severe with psychotic features SNOMED: [id number] Patient History: Alzheimer's disease G8 BROTHER Cerebrovascular disorder 33 FATHER Hypertension G8 BROTHER G8 SISTER G8 SISTER 32 MOTHER 33 FATHER Unknown No Family History of: Asthma Chronic obstructive pulmonary disease Congestive heart failure Diabetes insipidus Diabetes mellitus Parkinson's disease STEVEN GONZÁLES IV, MD Jan 26, 2018 10:54
--- NOTE | 2018-01-26 16:16 | NUR ---
PIRP P- RISK FOR FALLS I- WILL DEMONSTRATE APPROPRIATE USE OF FALL PREVENTION TECHNIQUES. WILL USE WALKER AT ALL TIMES. PROVIDE CLUTTER FREE ENVIRONMENT. R-ORIENTATED TO SELF. RATED DEPRESSION AND ANXIETY 0.PATIENT HAS TOOK MEDICATION ORDERED. HAS SLEPT SEVERAL TIMES TODAY, STATED NEED CATCH UP ON SLEEP, STATES HASN'T HAD MUCH SLEEP LATELY. PATIENT HAS USED WALKER TODAY. IS IN BED AT THIS TIME RESTING WITH EYES CLOSED. P- CONTINUE WITH CURRENT TREATMENT PLAN
[2018-01-26 19:20] VITALS: BP 112/51
[2018-01-26] MEDS: ARICEPT PO SCH (20:11)
[2018-01-26] MEDS: DESYREL PO SCH (20:11)
[2018-01-26] MEDS: ZYPREXA ZYDIS SL SCH (20:12)
--- NOTE | 2018-01-27 05:06 | NUR ---
pirp- P-BEHAVIORAL DISTURBANCE AND FALL RISK I-PROVIDE SAFE AND SUPPORTIVE ENVIRONMENT,Q 15 MIN. MONITORING,PROVIDE MEDICATION ORDERED. R-PT. ORIENTED TO NAME NOT MONTH OR YEAR. MICHELLE HALLUCINATIONS TONIGHT. ATTENDED GROUP AND PARTICIPATED IN DISCUSSION. MEDICATION TEACHING PROVIDED ON TRAZADONE. TOOK MEDICATION ORDERED. NO INAPPROPRIATE BEHAVIORS EXHIBITED TONIGHT. QUIET BUT RESPONDS TO APPROACH. WALKS WITH WALKER AND IS WEARING YELLOW NON SKID SOCKS. PT. RESTING IN BED WITH EYES CLOSED AT THIS TIMEP- WILL CONTINUE WITH CURRENT TX. PLAN. P- WILL CONTINUE WITH CURRENT TX. PLAN.
[2018-01-27] MEDS: HUMULIN R SQ SCH ×4 (07:05→20:26)
[2018-01-27 07:16] VITALS: BP 129/57
[2018-01-27] MEDS: PROTONIX PO SCH (08:02)
[2018-01-27] MEDS: COREG PO SCH ×2 (08:02→20:20)
[2018-01-27] MEDS: ZESTRIL PO SCH (08:03)
--- NOTE | 2018-01-27 16:42 | NUR ---
PIRP P-BEHAVIORAL DISTURBANCES, RISK FOR FALLS I-Q 15 MIN ROUNDING, ENCOURAGE PT TO REQUEST ASSISTANCE IF NEEDED FOR SAFE AMBULATION. PROVIDE A CLUTTER FREE AND WELL LIGHTED ENVIRONMENT. GIVE MEDICATION ORDERED. R-PT VERY PLEASANT THROUGHOUT SHIFT. PARTICIPATED IN GROUP WHEN ASKED. RATED ANXIETY AT A 3, AND DENIED DEPRESSION. P-CONTINUE WITH PLAN OF CARE.
[2018-01-27 19:43] VITALS: BP 134/61
[2018-01-27] MEDS: ARICEPT PO SCH (20:19)
[2018-01-27] MEDS: DESYREL PO SCH (20:19)
[2018-01-27] MEDS: ZYPREXA ZYDIS SL SCH (20:19)
--- NOTE | 2018-01-28 05:10 | NUR ---
pirp- P- FALL RISK AND BEHAVIORAL DISTURBANCE I-PROVIDE MEDICATION EDUCATION ORDERED,Q 15 MIN. MONITORING AND PROVIDE SAFE AND SUPPORTIVE ENVIRONMENT. R-PT. ORIENTED TIMES THREE AND RATED DEPRESSION AND ANXIETY HALF WAY" SHE STATED. ATTENDED GROUP AND ATE SNACKS. HAS NOT EXHIBITED INAPPROPRIATE BEHAVIORS THIS SHIFT. MEDICATION EDUCATION PROVIDED AND PT. TOOK MEDICATIONS. REMAINS FALL RISK AND SHE HAS USED WALKED WHEN AMBULATING. PT. HAS BEEN WEARING YELLOW NON SKID SOCKS THIS SHIFT. IS RESTING IN BED WITH EYES CLOSED AT THIS TIME. P- WILL CONTINUE WITH CURRENT TX. PLAN.
[2018-01-28] MEDS: HUMULIN R SQ SCH ×4 (07:23→21:04)
[2018-01-28 07:30] VITALS: BP 126/65
[2018-01-28] MEDS: PROTONIX PO SCH (08:35)
[2018-01-28] MEDS: COREG PO SCH ×2 (08:35→20:56)
[2018-01-28] MEDS: ZESTRIL PO SCH (08:36)
--- NOTE | 2018-01-28 16:36 | NUR ---
PIRP P: Dementia, fall risk I: Q15 min monitoring, assess for hallucinations and delusions, assist with differentiating between internal and external reality, give clear and simple instructions, monitor for changes in usual behavior, reinforce unit rules, give clear and simple instructions, provide 1:1 to encourage expression of feelings, provide task-oriented activities, give medications as ordered R: Pt has had flat, but cooperative affect throughout shift; pleasant when approached. Denies depression, anxiety, no hallucinations or delusions noted. States, "I'm happy, I guess." Does not exhibit danger to self or others, no psychotic symptoms noted, participates in group activities, and eats >75% of all meals. Takes medications as ordered, not an elopement risk. P: Pt unable to verbalize plan, continue to reinforce unit rules and encourage staying up OOB.
[2018-01-28 20:00] VITALS: BP 135/60
[2018-01-28] MEDS: ZYPREXA ZYDIS SL SCH (20:56)
[2018-01-28] MEDS: DESYREL PO SCH (20:56)
[2018-01-28] MEDS: ARICEPT PO SCH (20:56)
[2018-01-28] MEDS ORDERED: TRAZ50TA18 PO (21:38)
--- NOTE | 2018-01-29 04:53 | NUR ---
PIRP-P- FALL RISK AND BEHAVIORAL DISTURBANCE I- PROVIDE MEDICATION ORDERED,Q 15 MIN. MONITORING PROVIDE SAFE AND SUPPORTIVE ENVIRONMENT. R- PT. WAS ORIENTED TO NAME NOT YEAR OR MONTH. QUIET BUT SMOLES AND RESPONDS TO APPROACH. JAMIR NOTED. PT. WATCHED A MOVIE WITH PEERS. HER DAUGHTER VISITED AND DAUGHTER STATED SHE WOULD BE HERE AT 0930 TO GET PT. SATURDAY, WHEN SHE IS DISCHARGED PT. STATED SHE WAS NOT DEPRESSED OR ANXIETY AND WAS EXCITED TO BE GOING HOME. TOOK MEDICATION ORDERED.EXHIBITED PLEASANT AFFECT. PT. WALKS WITH WALKER AND IS WEARING YELLOW NON SKID SOCKS. IS RESTING IN BED WITH EYES CLOSED AT THIS TIME. P- WILL CONTINUE WITH CURRENT TX. PLAN.
--- NOTE | 2018-01-29 07:02 | CNH ---
DATE OF CONSULTATION: 01/27/2018 REFERRING PHYSICIAN: Dr. Estee Orellana, Psychiatry. REASON FOR CONSULTATION: Medical management of multiple medical problems. 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 She presented to the Emergency Room with worsening dementia for medical course at [facility]. She was cooperative with exam, but history is difficult due to her advanced dementia. She was recently in hospital in September of this year for concern for lower GI bleed. There is no further evidence of any bleed. PAST MEDICAL HISTORY: Includes hypertension, diabetes mellitus type 2, dementia, chronic asthenia, presbycusis with complete deafness left ear. PAST SURGICAL HISTORY: She has had appendectomy, , heart catheterization. ALLERGIES: NO KNOWN DRUG ALLERGIES. HOME MEDICATIONS: List currently includes alendronate 70 mg weekly, carvedilol 3.125 mg twice a day, artificial tears as needed, Aricept 10 mg at night. She takes insulin in the form of Xultophy 16 units at night, lisinopril 10 mg daily, Zyprexa Zydis 10 mg sublingual at night, omeprazole 20 mg daily. SOCIAL HISTORY: Lives with family. No alcohol, tobacco or illicit drug use history. FAMILY HISTORY: Negative for early coronary artery disease or diabetes. REVIEW OF SYSTEMS: Difficult to obtain due to dementia and hearing deficits. CARDIAC: Denies chest pain or shortness of breath. PULMONARY: No cough, sputum production or pleuritic chest pain. GASTROINTESTINAL: No nausea, vomiting, diarrhea or constipation. All else negative in 10 point review of system except as in HPI. PHYSICAL EXAMINATION: INITIAL VITAL SIGNS: Upon arrival to the Emergency Room, height 160 cm, weight 74.4 kilograms, temperature 97.1, pulse 52, respiratory rate 16, blood pressure 158/70, O2 saturation 98% on room air. GENERAL: She is sleepy, but arousable at time of exam. No acute distress, chronic ill-appearing lady. HEENT: Pupils equal, round, reactive to light. Sclerae are anicteric. Oropharynx is clear. Mucous membranes are moist. NECK: Supple, no lymphadenopathy. CARDIOVASCULAR: At time of exam was regular rate and rhythm. LUNGS: Clear bilaterally, shallow inspiratory effort, no wheezing. ABDOMEN: Soft. Bowel sounds are present, nontender to palpation. EXTREMITIES: No cyanosis, clubbing or significant edema. NEUROLOGIC: Grossly nonfocal. LABORATORY DATA: CBC: White count 8.5, hemoglobin 14.0 and platelets 157. Differential: 66% neutrophils, 23% lymphocytes, 7% monocytes. Sodium 141, potassium 4.7, chloride 106, CO2 is 20, BUN 13, creatinine 0.9, glucose 167, calcium is 8.3, total bilirubin 0.3, AST 23, ALT 24, alkaline phosphatase 74, total CK is 90, CK-MB is 0.5, troponin I is less than 0.02. C-reactive protein 0.11. ProBNP of 95, total protein 6.8, albumin 3.2. TSH is 2.36. UA, pH is 6.0, specific gravity is 1.010. All else was essentially negative. IMAGING STUDIES: Chest x-ray performed in the Emergency Room does show shallow inspiratory effort. ASSESSMENT AND PLAN: 1. 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 2. We will continue her cardiovascular medications. 3. Sliding scale insulin and ADA diet. 4. Activity as tolerated. Time spent on 01/27/2018 is 45 minutes. Silverio Quiñonez MD DR: UBALDO/jewel JOB# [id number]
[2018-01-29] MEDS: HUMULIN R SQ SCH ×4 (07:17→20:26)
[2018-01-29 07:36] VITALS: BP 138/65
[2018-01-29] MEDS: PROTONIX PO SCH (08:36)
[2018-01-29] MEDS: COREG PO SCH ×2 (08:36→20:20)
[2018-01-29] MEDS: ZESTRIL PO SCH (08:37)
--- NOTE | 2018-01-29 09:17 | PRM.PN ---
Mood: "FINE", DENIES FEELING DEPRESSED Sleep: SLEEPING WELL AT NIGHT Appetite: NORMAL APPETITE Suidical thoughts: NONE REPORTED Homicidal thoughts: NONE REPORTED Recent stressors: STRESS OF MENTAL ILLNESS Family support: DAUGHTER AND FAMILY Aggressive Behavior: NONE REPORTED Ability to Perform ADL'sc: NEEDS SOME ASSISTANCE, WALKS WITH A WALKER Psychotic sympstoms: NONE REPORTED Manic Symptoms: NONE REPORTED Living situation: LIVES AT HOME, WOULD BENEFIT FROM [facility] Illicit Drug usec: NONE REPORTED Alcoholo use: NONE REPORTED Tobacco use: NONE REPORTED Anxity Symptoms: MODERATE ANXIETY LEVEL Anger/Irritablility: LIMITED ANGER AND IRRITABILITY Muscle Strength & Tone: WNL Gait & Station: Ataxic Appearance: Well groomed/hygience, Casual attire, Normal weight, Appears age stated Attitude & Behaviour: Cooperative/Pleasant, Good eye contact Mood & Affect: Euthymic/appr/congruent Orientation: Disoriented to place, Disoriented to time, Disoriented to situation Attention/Concentration: Poor attention, Poor concentration Speech: Impaired Judgement/Insight: Poor judgement, Poor insight Thought Process: Linear/goal directed Language: Italian Thought content/Abnormal/Psych: Delusions Fund of Knowledge: Other Associations: MARYANA Memory (recent and remote): Recent memory repaired, Remote memory repaired Constitutional: None Neurological: Weakness Psychiatric: None Ailey I: DELUSIONAL DISORDER, DEPRESSION, ANXIETY, DEMENTIA Ailey II: DEFERRED Ailey III: REFER TO PMH/MEDICAL CHART Ailey IV: STRESS OF MENTAL ILLNESS Ailey V: GAF=25 TO 30 Assessment/Plan Assessment/Plan Assessment/Plan Vital Signs Date Time Temp Pulse Resp B/P (MAP) Pulse Ox O2 Delivery O2 Flow Rate FiO2 01/29/18 08:37 138/65 01/29/18 08:36 66 01/29/18 07:36 97.9 16 95 Room Air Allergies Coded Allergies No Known Allergies (Unverified07/01/16) I & O 08/14/17 09:44 Thru 01/29/18 07:30 Intake Total 9030 ml Output Total 200 ml Balance 8830 ml Current Medications Medications (Trade) Dose Ordered Sig/Walker Route PRN Reason Start Time Stop Time Status Last Admin Dose Admin Donepezil HCl (Aricept) 10 mg HS PO 01/24/18 21:00 02/23/18 20:59 01/28/18 20:56 Olanzapine (Zyprexa Zydis) 10 mg HS SL 01/24/18 21:00 02/23/18 20:59 01/28/18 20:56 Haloperidol (Haldol) 2 mg Q6H PRN PO DELUSIONS 01/24/18 17:00 02/23/18 16:59 Lorazepam (Ativan) 0.5 mg Q6HR PRN PO ANXIETY 01/24/18 17:00 02/23/18 16:59 Trazodone HCl (Desyrel) 50 mg HS PO 01/24/18 21:00 02/23/18 20:59 01/28/18 20:56 Carvedilol (Coreg) 3.125 mg BID PO 01/24/18 22:00 02/23/18 21:59 01/29/18 08:36 Lisinopril (Zestril) 10 mg DAILY PO 01/25/18 09:00 02/24/18 08:59 01/29/18 08:37 Artificial Tears (Artificial Tears) 1 drops QID PRN BOTH EYES 01/25/18 10:00 02/24/18 09:59 Pantoprazole Sodium (Protonix) 40 mg DAILY PO 01/25/18 09:00 02/24/18 08:59 01/29/18 08:36 Insulin Human Regular (Humulin R) Give 30 minutes before meal ACHS SQ 01/25/18 07:30 02/24/18 07:29 01/29/18 07:17 Glucagon (Glucagen) 1 mg STAT PRN IM HYPOGLYCEMIA 01/24/18 22:00 02/23/18 21:59 THE PATIENT WAS SEEN BY DR. GONZÁLES VIA TELEMEDICINE EQUIPMENT (VSEE) ALONG WITH THE TREATMENT TEAM. THE PATIENT HAS BEEN DOING WELL. THE PATIENT DENIES FEELING DEPRESSED OR ANXIOUS. THE PATIENT SLEPT 6.75 HOURS LAST NIGHT. THE PATIENT HAS A NORMAL APPETITE. THE PATIENT HAS BEEN TAKING HER MEDICATIONS. THE PATIENT WAS LIVING AT HOME WITH HER DAUGHTER. THE PATIENT HAS POOR HEARING. THE PATIENT NEEDS HELP WITH HER ADLS. THE PATIENT IS NOT HAVING MANIC OR HYPOMANIC SYMPTOMS. THE PATIENT IS NOT HAVING HALLUCINATIONS. THE PATIENT IS NOT HAVING PSYCHOTIC SYMPTOMS. THE PATIENT HAS BEEN PLEASANT WITH STAFF. THE PATIENT WAS DISORIENTED TO PLACE, TIME, AND SITUATION. THE PATIENT WOULD BENEFIT FROM SKILLED CARE. THE PATIENT IS WEAKER ON THIS ADMISSION THAN PREVIOUS ADMISSIONS. ASSESSMENT: DELUSIONAL DISORDER, MAJOR DEPRESSIVE DISORDER; GENERALIZED ANXIETY DISORDER, DEMENTIA WITH BEHAVIOR PROBLEMS PLAN: 1) DISCHARGE FROM THE [facility]. 2) CONTINUE CURRENT MEDICATIONS. THE PATIENT AND STAFF WERE AGREEABLE WITH THE PLAN. THE PATIENT DENIES SI OR HI. 16 MINUTES SPENT IN SUPPORTIVE THERAPY AND INSIGHT ORIENTED THERAPY. THE TRADING SPECIALIST HAS NOT BEEN ABLE TO GET A HOLD OF HER DAUGHTER. THE TRADING SPECIALIST IS WORKING ON DISCHARGE PLANNING. SHE WILL WITH GO TO A RESIDENTIAL OR BACK WITH HER DAUGHTER. Problems: (1) Delusional disorder Status: Resolved ICD Code: F22 - Delusional disorders SNOMED: 25204487 (2) Dementia Status: Chronic ICD Code: F03.90 - Unspecified dementia without behavioral disturbance SNOMED: 53371322 Patient History: Alzheimer's disease G8 BROTHER Cerebrovascular disorder 33 FATHER Hypertension G8 BROTHER G8 SISTER G8 SISTER 32 MOTHER 33 FATHER Unknown No Family History of: Asthma Chronic obstructive pulmonary disease Congestive heart failure Diabetes insipidus Diabetes mellitus Parkinson's disease STEVEN GONZÁLES IV, MD Jan 29, 2018 09:17
--- NOTE | 2018-01-29 10:38 | NUR ---
[facility]: AFTER VISITING WITH PT'S DAUGHTER, PT'S DAUGHTER HAS DECIDED IT WOULD BE BEST FOR PT TO GO TO [facility] FOR CARE HOME AND THEN DISCHARGE BACK HOME WITH [facility]. SS FAXED OVER CLINICAL INFORMATION TO [facility] AND SPOKE TO DARRYN REGARDING PT'S ADMISSION. NO FURTHER NEEDS NOTED AT THIS TIME. PT IS CURRENTLY PENDING ACCEPTANCE INTO [facility] AT THIS TIME.
--- NOTE | 2018-01-29 12:45 | NUR ---
[facility] ACCEPTANCE: DARRYN WITH [facility] CALLED AND STATED PT HAS BEEN ACCEPTED AND WAS GOOD TO GO AFTER PT EVALUATION IS COMPLETE. SW FAXED UPDATED CLINICAL AND D/C PAPER WORK. PASRR COMPLETED. NO FURTHER NEEDS NOTED AT THIS TIME. AFTER PT EVALUATION REPORT CAN BE CALLED TO [facility] AT [phone] AND ARRANGE FOR TRANSPORTATION. NO FURTHER DISCHARGE NEEDS NOTED AT THIS TIME.
--- NOTE | 2018-01-29 15:14 | NUR ---
[facility]: DARRYN WITH [facility] CALLED AND STATED IF THEY DIDN'T GET PT BEFORE 1600 THEY WOULD NOT BE ABLE TO TAKE PT TODAY BECAUSE THEY WOULD BE UNABLE TO GET HER MEDICATION. Gage VILLATORO LVN REACHED OUT TO Johnny LOPEZ WHOM STATED THEY WERE SWAMPED AND MAY NOT GET TO IT TODAY. IT WAS A LAST MINUTE EVALUATION AND THEY WERE SHORT STAFFED. SS REACHED OUT TO Nacho HURT STATED SHE COULD COME AFTER 1700 AND COMPLETE EVALUATION. SS REACHED OUT TO Nacho RAMIREZ, DON TO SEE IF THEY WOULD BE ABLE TO PICK PT UP AFTER 1700 SINCE SHE HAS FAXED MED LIST, BUT CONSUELO STATED PT HAD TO BE IN THE BUILDING PRIOR TO THEM ORDERING HER MEDICATION AND THEY COULD NOT TAKE HER WITHOUT THE EVAL. CONSUELO STATED "WE CAN JUST PLAN ON HER COMING TOMORROW THEN".
--- NOTE | 2018-01-29 16:51 | NUR ---
PIRP P: DEMENTIA, FALL RISK I: Q15 MIN MONITORING, ASSESS FOR HALLUCINATIONS AND DELUSIONS, GIVE CLEAR AND SIMPLE INSTRUCTIONS, MONITOR FOR CHANGES IN USUAL BEHAVIOR, PROVIDE 1:1 TO ENCOURAGE EXPRESSION OF FEELINGS, GIVE MEDICATIONS ORDERED. R: PT IS HARD OF HEARING. SHE IS COOPERATIVE WHEN GIVEN SIMPLE TASK. PLEASANT DURING MEALS AND WHEN SPOKEN TO. DENIES ANXIETY AND DEPRESSION AT THIS TIME. ATE 100% OF MEALS TODAY. SHE IS READY TO DISCHARGE TO [facility] TOMORROW. TAKES MEDICATIONS ORDERED. PT NEEDS ENCOURAGEMENT AND REINFORCEMENT WHEN STATING GOALS AND SOMETHING POSITIVE. P: CONTINUE TO ASSESS FOR HALLUCINATIONS AND DELUSIONS. ENCOURAGE PARTICIPATION IN GROUP ACTIVITIES.
[2018-01-29 19:22] VITALS: BP 142/61
[2018-01-29] MEDS: DESYREL PO SCH (20:20)
[2018-01-29] MEDS: ARICEPT PO SCH (20:21)
[2018-01-29] MEDS: ZYPREXA ZYDIS SL SCH (20:21)
--- NOTE | 2018-01-30 04:12 | NUR ---
P[facility] P-DEMENTIA, FALL RISK I-Q 15 MIN MONITORING, GIVE MEDICATION NEEDED. PROVIDE SUPPORTIVE ENVIRONMENT, ENCOURAGE PARTICIPATION IN GROUP. KEEP ENVIRONMENT CLUSTER FREE POSSIBLE. EDUCATE ON SAFE AMBULATION WITH WALKER. R-PT DENIED DEPRESSION OR ANXIETY DURING CURRENT SHIFT. PT AMBULATED SAFELY IN HALLWAY WITH WALKER AND WAS ABLE TO GO TO THE BATHROOM INDEPENDENTLY. PT WAS COOPERATIVE WITH TAKING MEDICATION AND INSTRUCTION GIVEN DURING CURRENT SHIFT. P-CONTINUE WITH PLAN OF CARE.
[2018-01-30 07:44] VITALS: BP 139/68
[2018-01-30] MEDS: PROTONIX PO SCH (08:39)
[2018-01-30] MEDS: COREG PO SCH (08:39)
[2018-01-30] MEDS: ZESTRIL PO SCH (08:39)
[2018-01-30] MEDS: HUMULIN R SQ SCH ×2 (08:40→12:18)
[2018-01-30 13:50] VITALS: BP 139/68
--- NOTE | 2018-01-30 13:50 | NUR ---
Off unit Pt transported off unit via wheelchair by Val Cortez LVN and x2 [facility] staff members. No distress noted.
--- NOTE | 2018-01-30 15:57 | DSH ---
DATE OF DISCHARGE: 01/30/2018 DATE OF ADMISSION: 01/24/2018 DATE OF DISCHARGE: 01/30/2018 HOSPITAL COURSE: The patient is an 82-year-old female who has an involuntary admission to the Behavioral Health Unit at the [facility]. She was having aggressive behavior and irritable behavior at home. Her family was not able to handle her at home. She also had decreased cognition. She was stabilized on the following psychotropic medications: Aricept 10 mg p.o. at bedtime, olanzapine 10 mg p.o. at bedtime and trazodone 50 mg p.o. at bedtime. She was tolerating these medications fine. She showed improvement in her mood. She did not show aggressive behavior. She was not having auditory or visual hallucinations. She is not having any suicidal or homicidal ideation. She had a stable anxiety level. She was taking all of her medications and tolerating them fine. She did have a physical therapy consult and it was decided that she could use intermediate. We met with her daughter and her daughter was agreeable with the plan. DISCHARGE DIAGNOSES: Delusional disorder; psychosis; major depressive disorder; generalized anxiety disorder; Alzheimer type dementia with behavior disturbance. TREATMENT PLAN: 1. The patient is being discharged to the [facility] for skilled care. She will get physical therapy while she is there. She will eventually go home to live with her daughter. 2. We will continue the above psychotropic medications. She has a followup with outpatient mental health. 3. She needs to follow up with outpatient primary care for her general medical health issues. Estee Orellana IV MD DR: /jewel JOB# [id number]
--- NOTE | 2018-02-24 09:59 | NUR ---
Co-Signature For MT Assessment I, YAS Keller am co-signing Music Therapy Activities Assessment with completion of this attached note. Signed: 02/24/18 at 1000 by YAS Keller OT Addendum: 02/24/18 at 1000 by YAS Keller OT Amended: Links added.
== END 2018-01-30 13:50 | DRG 885 ==
LOC: ER 12:36 → GP 15:49 → EEVIPCON 15:49
PROVIDERS: ADMIT Psychiatry & Neurology Psychiatry; ATTEND Psychiatry & Neurology Psychiatry
DX: F32.3 Major depressive disorder, single episode, severe with psychotic features (principal); F02.81 Dementia in other diseases classified elsewhere, unspecified severity, with behavioral disturbance; E11.9 Type 2 diabetes mellitus without complications; G30.9 Alzheimer's disease, unspecified; F41.1 Generalized anxiety disorder; H91.92 Unspecified hearing loss, left ear; I10 Essential (primary) hypertension; K21.9 Gastro-esophageal reflux disease without esophagitis; Z79.899 Other long term (current) drug therapy; Z90.49 Acquired absence of other specified parts of digestive tract; Z82.3 Family history of stroke; Z82.49 Family history of ischemic heart disease and other diseases of the circulatory system; Z82.0 Family history of epilepsy and other diseases of the nervous system
CPT/HCPCS: 36415; 71045; 80053; 80061; 80164; 80178; 80307; 81000; 82550; 82553; 82607; 82746; 82948; 83036; 83880; 84443; 84484; 85025; 86140; 87077; 87086; 87186; 93005; 97150; 97161; 97166; 99285; J1815; G8978-CJ; G8979-CJ; G8980-CJ; G8987; G8988

== ENCOUNTER → 2018-02-26 | Outpatient (CLI) | payer OTHER ==
[~2018-02-26] MED LIST changes: +ALEN70TA3 PO; +ALEN70TA5 PO; +DEXT15DR5 OP
--- NOTE | 2018-02-26 15:06 | PCM.EKG ---
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
== END | disposition home or self-care (01) ==
LOC: RT 14:44
PROVIDERS: ATTEND Internal Medicine
DX: Z51.81 Encounter for therapeutic drug level monitoring (principal); Z79.899 Other long term (current) drug therapy
CPT/HCPCS: 93005

== ENCOUNTER → 2018-03-05 | Outpatient (CLI) | payer OTHER ==
--- NOTE | 2018-03-05 14:33 | PCM.EKG ---
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
== END | disposition home or self-care (01) ==
LOC: LAB 14:00
PROVIDERS: ATTEND Internal Medicine
DX: I44.1 Atrioventricular block, second degree (principal); I10 Essential (primary) hypertension; E11.40 Type 2 diabetes mellitus with diabetic neuropathy, unspecified; E78.00 Pure hypercholesterolemia, unspecified; M16.12 Unilateral primary osteoarthritis, left hip; K21.9 Gastro-esophageal reflux disease without esophagitis; I25.10 Atherosclerotic heart disease of native coronary artery without angina pectoris; Z95.818 Presence of other cardiac implants and grafts; Z90.49 Acquired absence of other specified parts of digestive tract
CPT/HCPCS: 93005

== ENCOUNTER 2018-03-17 19:33 | Inpatient (IN) | payer OTHER ==
[~2018-03-17] VITALS: Ht 160 cm; Wt 74.9 kg
--- NOTE | 2018-03-17 19:35 | ER.PDOC ---
General Chief Complaint: Requesting Medical Care Stated Complaint: RECTAL BLEED Time seen by MD: 19:34 Source: patient, family Exam Limitations: clinical condition History of Present Illness Initial Comments Pt was noticed today to have dark melena type feces, going several times to the bathroom, also family noticed that she was more pale than usual. She has dementia and is unable to give the story by herself Timing/Duration: 24 hours Severity/Quality: severe Associated Symptoms: tarry stools Allergies: Coded Allergies: No Known Allergies (Unverified , 07/01/16) Home Meds Active Scripts Trazodone Hcl (TRAZODONE HCL) 50 Mg Tablet, 50 MG PO HS for 30 Days, TABLET Prov:STEVEN GONZÁLES IV, MD 01/28/18 Omeprazole (OMEPRAZOLE) 20 Mg Tablet.dr, 20 MG PO DAILY for ulcer prevention, # 30 TAB 3 Refills Prov:ADONAY VIERA MD 07/11/16 Olanzapine (ZYPREXA ZYDIS) 5 Mg Tab.rapdis, 10 MG SL HS, #30 Prov:MARGO URBANO MD 07/11/16 Donepezil Hcl (ARICEPT) 5 Mg Tablet, 10 MG PO HS, #30 TABLET Prov:MARGO URBANO MD 07/11/16 Lisinopril (LISINOPRIL) 10 Mg Tablet, 10 MG PO DAILY for HTN, #30 TABLET Prov:ADONAY VIERA MD 06/22/16 Carvedilol (CARVEDILOL) 3.125 Mg Tablet, 3.125 MG PO BID for HTN, #30 TABLET Prov:ADONAY VIERA MD 06/22/16 Reported Medications Dextran 70/Hypromellose (ARTIFICIAL TEARS EYE DROPS) 15 Ml Drops, 1 DROP OP QID for DRY EYES, #15 MILLILITER 5 Refills 01/24/18 Alendronate Sodium (ALENDRONATE SODIUM) 70 Mg Tablet, 70 MG PO OT for WEEKLY, TABLET 01/24/18 Insulin Degludec/Liraglutide (Xultophy 100 Unit-3.6MG/ml Pen) 100 Unit-3.6 Mg/ Ml (3 Ml) Insuln.pen, 16 UNIT SQ HS 10/08/17 Past Medical History Surgical History: appendectomy, Social History Drug Use: none Constitutional: no symptoms reported EENTM: no symptoms reported Respiratory: no symptoms reported Cardiovascular: no symptoms reported ABD/GI (ROS): see HPI Genitourinary: no symptoms reported Musculoskeletal: no symptoms reported Skin: no symptoms reported Psychiatric/Neurological: no symptoms reported Endocrine: no symptoms reported Hematologic/Lymphatic: see HPI, anemia Physical Exam General Appearance: No Apparent Distress, WD/WN EENT: eyes nml inspection, nml ENT inspection, pharynx nml Neck: nml inspection, non-tender Respiratory: chest non-tender, lungs clear, normal breath sounds, no respiratory distress, no accessory muscle use Cardiovascular: Normal Peripheral Pulses, Regular Rate, Rhythm, No Edema, No Gallop, No JVD, No Murmur Gastrointestinal: Normal Bowel Sounds, No Organomegaly, No Pulsatile Mass, Non Tender Rectal: Normal Exam, Black Stool Back: Normal Inspection, No CVA Tenderness, No Vertebral Tenderness Extremities: Normal Range of Motion, Non-Tender, Normal Inspection, No Pedal Edema, No Calf Tenderness, Normal Capillary Refill Neurologic/Psychiatric: doors prefitter II-XII NML as Tested, No Motor/Sensory Deficits, Alert, Normal Mood/Affect Skin: Normal Color, Warm/Dry Lymphatic: No Adenopathy Results/Orders Results/Orders Laboratory Tests Test 03/17/18 19:49 03/17/18 20:08 03/17/18 20:15 03/17/18 20:45 Bedside Stool Occult Blood POSITIVE (NEGATIVE) White Blood Count 20.7 10^3/uL (4.5-11.0) Red Blood Count 4.69 10^6/uL (4.00-5.20) Hemoglobin 14.0 g/dL (12.0-15.0) Hematocrit 42.4 % (36.0-46.0) Mean Corpuscular Volume 90.4 fL (78-100) Mean Corpuscular Hemoglobin 29.9 pg (26-34) Mean Corpuscular Hemoglobin Concent 33.0 g/dL (33-37) Red Cell Distribution Width 13.5 % (11.5-14.5) Platelet Count 125 10^3/uL (150-400) Mean Platelet Volume 12.3 fL (7.8-11.0) Neutrophils (%) (Auto) 86.2 % (41.0-85.0) Lymphocytes (%) (Auto) 5.3 % (24.0-44.0) Monocytes (%) (Auto) 8.3 % (5.0-12.0) Neutrophils # (Auto) 17.8 10^3/uL (1.8-7.7) Lymphocytes # (Auto) 1.1 10^3/uL (1.0-4.8) Monocytes # (Auto) 1.7 10^3/uL (0.3-0.8) Absolute Immature Granulocyte (auto 0.03 10^3 u/L (0-2) Eosinophils % 0.1 % (0.0-5.0) Basophils % 0.0 % (0.0-0.2) Basophils # 0.0 10^3/uL (0.0-0.1) Eosinophil Count 0.0 10^3/uL (0.0-0.2) Percent Immature Gran (Cell Imm) 0.10 % (0.00-0.50) Differential Total Cells Counted 100 #CELLS Segmented Neutrophils 71 % (31-76) Band Neutrophils 17 % (2-6) Lymphocytes 6 % (25-36) Monocytes 5 % (3-9) Basophils 1 % (0-2) Platelet Morphology NORMAL Prothrombin Time 13.3 SEC (9.8-11.9) Prothrombin Time INR (Non-Therap) 1.3 Activated Partial Thromboplast Time 23.9 SEC (24.67-30.72) Sodium Level 139 mmol/L (132-145) Potassium Level 4.2 mmol/L (3.6-5.2) Chloride Level 107.0 mmol/L (96-109) Carbon Dioxide Level 20.6 mmol/L (20.0-32) Anion Gap 15.6 Blood Urea Nitrogen 29 mg/dL (7-18) Creatinine 1.76 mg/dL (0.59-1.40) Estimated GFR () 33.6 (>/=60) BUN/Creatinine Ratio 16.0 Glucose Level 271 mg/dL (70-110) Calcium Level 8.2 mg/dL (8.4-10.5) Total Bilirubin 0.5 mg/dL (0.2-1.0) Aspartate Amino Transf (AST/SGOT) 37 U/L (0-35) Alanine Aminotransferase (ALT/SGPT) 22 U/L (12-78) Alkaline Phosphatase 74 U/L (50-136) Total Protein 6.1 g/dL (6.4-8.2) Albumin 3.0 g/dL (3.4-5.0) Globulin 3.1 Amylase Level 606 U/L (25-115) Lipase 218 U/L (114-286) Administered Medications Medications (Trade) Dose Ordered Sig/Walker Route PRN Reason Start Time Stop Time Status Last Admin Dose Admin Sodium Chloride 1,000 ml @ 500 mls/hr Q2H STAT IV 03/17/18 19:49 03/17/18 21:48 DC 03/17/18 21:23 Course Vitals & review Data Vital Sign - Last 24 Hours 01/30/18 01/30/18 03/17/18 03/17/18 08:39 13:50 19:36 19:36 Temp 97.7 97.7 97.7 97.7 Pulse 63 63 78 79 Resp 16 16 Pulse Ox 96 O2 Delivery Room Air 03/17/18 19:42 Temp 97.7 97.7 Pulse 78 Resp 16 B/P (MAP) 143/64 (90) Pulse Ox 96 O2 Delivery Room Air Laboratory Tests Test 03/17/18 19:49 03/17/18 20:08 03/17/18 20:15 03/17/18 20:45 Bedside Stool Occult Blood POSITIVE White Blood Count 20.7 10^3/uL Red Blood Count 4.69 10^6/uL Hemoglobin 14.0 g/dL Hematocrit 42.4 % Mean Corpuscular Volume 90.4 fL Mean Corpuscular Hemoglobin 29.9 pg Mean Corpuscular Hemoglobin Concent 33.0 g/dL Red Cell Distribution Width 13.5 % Platelet Count 125 10^3/uL Mean Platelet Volume 12.3 fL Neutrophils (%) (Auto) 86.2 % Lymphocytes (%) (Auto) 5.3 % Monocytes (%) (Auto) 8.3 % Neutrophils # (Auto) 17.8 10^3/uL Lymphocytes # (Auto) 1.1 10^3/uL Monocytes # (Auto) 1.7 10^3/uL Absolute Immature Granulocyte (auto 0.03 10^3 u/L Eosinophils % 0.1 % Basophils % 0.0 % Basophils # 0.0 10^3/uL Eosinophil Count 0.0 10^3/uL Percent Immature Gran (Cell Imm) 0.10 % Differential Total Cells Counted 100 #CELLS Segmented Neutrophils 71 % Band Neutrophils 17 % Lymphocytes 6 % Monocytes 5 % Basophils 1 % Platelet Morphology NORMAL Prothrombin Time 13.3 SEC Prothrombin Time INR (Non-Therap) 1.3 Activated Partial Thromboplast Time 23.9 SEC Sodium Level 139 mmol/L Potassium Level 4.2 mmol/L Chloride Level 107.0 mmol/L Carbon Dioxide Level 20.6 mmol/L Anion Gap 15.6 Blood Urea Nitrogen 29 mg/dL Creatinine 1.76 mg/dL Estimated GFR () 33.6 BUN/Creatinine Ratio 16.0 Glucose Level 271 mg/dL Calcium Level 8.2 mg/dL Total Bilirubin 0.5 mg/dL Aspartate Amino Transf (AST/SGOT) 37 U/L Alanine Aminotransferase (ALT/SGPT) 22 U/L Alkaline Phosphatase 74 U/L Total Protein 6.1 g/dL Albumin 3.0 g/dL Globulin 3.1 Amylase Level 606 U/L Lipase 218 U/L Current Medications Medications (Trade) Dose Ordered Sig/Walker PRN Reason Start Time Stop Time Status Last Admin Acetaminophen/ Hydrocodone Bitart ([place] 7.5mg) 1 each STAT PRN PAIN 03/18/18 01:30 04/17/18 01:29 Departure Time of Disposition: 01:48 Disposition: 09 ADMITTED INPATIENT Impression: Primary Impression: Lower GI bleed Additional Impressions: GI bleed Duodenitis Condition: Stable Referrals: ADONAY VIERA MD (PCP) PRIMARY CARE PROVIDER Duration or Time Spent with Pa: 25 Problem Qualifiers CORINNE PRECIADO MD Mar 17, 2018 19:35
[2018-03-17 19:42] VITALS: BP 143/64
[2018-03-17] MEDS ORDERED: NS 1000ML 1,000 ML STA (19:49)
--- NOTE | 2018-03-17 20:10 | NUR ---
FAMILY DAUGHTER AT BEDSIDE AT THIS TIME.
[2018-03-17 20:14] LABS: EOSINOPHIL % 0.1 % (0.0-5.0); LYMPHOCYTES # 1.1 10^3/uL (1.0-4.8); LYMPHOCYTES % 5.3 % (24.0-44.0); MEAN CELL HGB 29.9 pg (26-34); MEAN CORP VOLUME 90.4 fL (78-100); MEAN PLATELET VOLUME 12.3 fL (7.8-11.0); MONOCYTES # 1.7 10^3/uL (0.3-0.8); MONOCYTES % 8.3 % (5.0-12.0); NEUTROPHIL # 17.8 10^3/uL (1.8-7.7); NEUTROPHILS % 86.2 % (41.0-85.0); RED CELL DISTRIBUTION WIDTH 13.5 % (11.5-14.5); WHITE BLOOD CELL 20.7 10^3/uL (4.5-11.0)
[2018-03-17 20:31] LABS: BAND NEUTROPHILS 17 % (2-6); SEGMENTED NEUTROPHILS 71 % (31-76)
[2018-03-17 20:32] LABS: BASOPHIL 1 % (0-2); LYMPHOCYTE 6 % (25-36); MONOCYTE 5 % (3-9)
[2018-03-17] MEDS ORDERED: NS 1000ML 1,000 ML ONE ×2 (21:14→23:36)
[2018-03-17 21:18] LABS: CALCIUM 8.2 mg/dL (8.4-10.5); CARBON DIOXIDE 20.6 mmol/L (20.0-32)
--- NOTE | 2018-03-18 00:52 | NUR ---
BEDSIDE PT UP TO BEDSIDE COMMODE AT THIS TIME. BED SHEETS CHANGED, PT PLACED IN GOWN, AND NONSLIP SOCKS PROVIDED AT THIS TIME.
[2018-03-18] MEDS ORDERED: NORCO 7.5MG PO ONE (01:06)
[2018-03-18] MEDS ORDERED: NORCO 7.5MG PO PRN (01:30)
--- NOTE | 2018-03-18 01:41 | DIREP ---
PROCEDURE:CT ABD/PELVIS WITHOUT CONTRAST TECHNIQUE:The patient drank oral contrast material. Axial cuts were obtained from the dome of the diaphragm to the ischial tuberosities. No intravenous contrast was given. The images were viewed at lung, liver, bone, and soft tissue settings. Sagittal and coronal reconstructions are provided. COMPARISON:[facility], , XRAY SPINE LUMBAR 2-3 VWS, 09/13/2017, 12:03 PM. [facility], , XRAY CHEST SINGLE VW, 01/24/2018, 01:08 PM. INDICATIONS:GI BLEED FINDINGS: LOWER CHEST:Trace left pleural effusion. Mild bibasilar subsegmental atelectasis and/or scarring. Dense mitral annular and mild aortic valvular calcifications are partially visualized. LIVER:Normal. No focal hepatic lesion. BILIARY:Normal. PANCREAS:Normal. SPLEEN:Scattered calcified granulomas. Normal size. No focal splenic lesion. URINARY TRACT:Normal. No urinary tract calculus or hydronephrosis. The bladder is unremarkable. ADRENALS:Mild left adrenal thickening without focal nodule. Normal right adrenal. AORTA/VASCULAR:Scattered calcified plaque. No aneurysm. RETROPERITONEUM:Normal. No enlarged lymph nodes. BOWEL/MESENTERY:Wgiqtrhq-io-krbehe wall thickening with adjacent inflammatory changes extending from the distal transverse colon through the proximal rectum, most prominent involving the sigmoid. A few scattered descending and sigmoid colonic diverticular are noted. The long segment of colonic involvement favors infectious or inflammatory colitis over diverticulitis. No obstructive or inflammatory changes involving the remainder of the GI tract. An elongated filling defect is seen in the duodenal bulb, measuring 3.7 x 1.4 cm (image 25, series [id number]). The appendix is not visualized and is presumed surgically absent. No free fluid, free air, or adenopathy. No intra-abdominal abscess. ABDOMINAL WALL:Small, fat containing, umbilical hernia. Otherwise unremarkable. PELVIS:The uterus and adnexa are normal for age. Tiny pelvic phleboliths. No free fluid or adenopathy. BONES:Osteopenia. Stable chronic anterior compression deformity of L1. Moderate multilevel disc and facet degenerative changes throughout the thoracic and lumbar spine. No acute abnormality or suspicious osseous lesion. OTHER:Normal. CONCLUSION: 1. Moderate marked colonic wall thickening and adjacent inflammatory changes involving a long segment of colon from the distal transverse colon through the proximal rectum. A few scattered descending and sigmoid colonic diverticular are noted. Long segment involvement favors infectious/inflammatory colitis over diverticulitis. No free fluid, free air, or abscess. 2. Elongated filling defect within the duodenal bulb, measuring 3.7 x 1.4 cm. This likely represents protrusion of the pylorus into the duodenal bulb. However, duodenal polyp cannot be excluded. Consider upper endoscopy for further evaluation. 3. Trace left pleural effusion. 4. Additional findings, as above. Dictated by: Richy Martinez MD on 03/18/2018 at 01:31 AM
--- NOTE | 2018-03-18 01:46 | NUR ---
NELSON PRECIADO ON PHONE WITH DR. DAMON AT THIS TIME.
[2018-03-18] MEDS ORDERED: NS 1000ML 1,000 ML STA (01:52)
[2018-03-18] MEDS ORDERED: ROCEPHIN 1,000 MG in NS 100ML 100 ML IV ONE (02:00)
[2018-03-18] MEDS ORDERED: ROCEPHIN ONE (02:50)
[2018-03-18] MEDS ORDERED: NS 100ML 100 ML IV ONE (02:51)
[2018-03-18 03:03] VITALS: BP 132/71
--- NOTE | 2018-03-18 03:03 | NUR ---
REPORT REPORT CALLED INTO JACQUES MONTALVO. JACQUES CARLISLE TOOK PT TO [facility] AT THIS TIME. PT ESCORTED BY FAMILY.
[2018-03-18 04:30] VITALS: BP 140/74
[2018-03-18 05:52] LABS: BILIRUBIN,URINE NEGATIVE (NEGATIVE); UROBILINOGEN,URINE NORMAL (NEGATIVE)
[2018-03-18 06:01] LABS: APPEARANCE,URINE CLEAR (CLEAR); UA COLOR YELLOW (YELLOW)
[2018-03-18 06:53] LABS: BASOPHIL % 0.1 % (0.0-0.2); HEMOGLOBIN 11.8 g/dL (12.0-15.0); LYMPHOCYTES # 1.5 10^3/uL (1.0-4.8); LYMPHOCYTES % 10.7 % (24.0-44.0); MEAN CELL HGB CONCENTRATION 33.5 g/dL (33-37); MEAN CORP VOLUME 89.6 fL (78-100); MEAN PLATELET VOLUME 12.1 fL (7.8-11.0); MONOCYTES % 6.7 % (5.0-12.0); NEUTROPHIL # 11.8 10^3/uL (1.8-7.7); NEUTROPHILS % 82.4 % (41.0-85.0); RED CELL DISTRIBUTION WIDTH 13.3 % (11.5-14.5); WHITE BLOOD CELL 14.3 10^3/uL (4.5-11.0)
[2018-03-18] MEDS ORDERED: ZOFRAN IV PRN (07:00)
[2018-03-18 07:03] LABS: CALCIUM 7.9 mg/dL (8.4-10.5); CARBON DIOXIDE 19.7 mmol/L (20.0-32)
--- NOTE | 2018-03-18 07:12 | NUR ---
REPORT REPORT RECEIVED FROM [facility]ER [facility]
[2018-03-18 08:07] VITALS: BP 149/68
[2018-03-18] MEDS: PROTONIX IV IV SCH ×2 (08:53→22:08)
[2018-03-18] MEDS: ZESTRIL PO SCH (08:54)
[2018-03-18] MEDS: NS 1000ML 1,000 ML IV SCH ×2 (08:54→22:04)
[2018-03-18] MEDS: COREG PO SCH ×2 (08:54→22:08)
[2018-03-18] MEDS: ZOSYN 2.25GM 2.25 GM in NS 100ML 100 ML IV SCH ×3 (10:43→22:08)
--- NOTE | 2018-03-18 10:47 | HPH ---
ADMIT DATE: 03/18/2018 CHIEF COMPLAINT: Upon arrival to the Emergency Room is rectal bleeding. 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 She presented to the ER with reports of bright red blood per rectum. She was also in the hospital back in September with a similar complaint of rectal bleeding. At that time, it appeared to be internal hemorrhoidal bleeding with bright red blood, which did resolve overnight and she was sent home. This time, she presented to the ER with complaints of dark melanotic stools. There are also some episodes of bright red blood. This has been going on for about 24 hours. She has advanced dementia and history is somewhat difficult. Workup in the ER did reveal evidence of a moderate colonic wall thickening with adjacent inflammatory changes consistent with a colitis. She also had a filling defect noted in the duodenal bulb. Her vital signs upon arrival to the Emergency Room were stable. 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 PAST SURGICAL HISTORY: She has had appendectomy, , heart catheterization. ALLERGIES: No known drug allergies. CURRENT HOME MEDICATIONS: List includes alendronate 70 mg weekly, carvedilol 3.125 mg twice a day, artificial eye drops as needed, donepezil 10 mg at night. She takes Xultophy 16 units at night, lisinopril 10 mg daily, olanzapine 10 mg sublingual at night, omeprazole 20 mg daily and trazodone 50 mg at night. SOCIAL HISTORY: Lives with family. No alcohol, tobacco or illicit drug use history. FAMILY HISTORY: Negative for early coronary artery disease or diabetes. REVIEW OF SYSTEMS: Unable to reliably obtain due to advanced dementia. PHYSICAL EXAMINATION: VITAL SIGNS: Upon arrival to the Emergency Room, height is 160 cm, weight 74.85 kilograms, temperature 97.7, pulse 78, respiratory rate 16, blood pressure 143/64, O2 saturation 96% on room air. GENERAL: She is easily arousable, chronic ill-appearing lady, but no acute distress. HEENT: Pupils are equal, round, reactive to light. Sclerae are anicteric. Oropharynx is clear. Mucous membranes are moist. NECK: Supple, no lymphadenopathy. CARDIOVASCULAR: At time of exam was regular rate and rhythm. LUNGS: Clear bilaterally, shallow inspiratory effort. No wheezing. ABDOMEN: Soft. Bowel sounds are present, slightly tender to palpation diffusely. No rebound or guarding. EXTREMITIES: No cyanosis, clubbing or significant edema. NEUROLOGIC: Grossly nonfocal. INITIAL LABORATORY DATA: CBC: White count 20.7, hemoglobin 14.0 and platelets 125. Differential: 86% neutrophils, 5% lymphocytes, 8% monocytes. Sodium 139, potassium 4.2, chloride 107, CO2 is 20, BUN 29, creatinine 1.76, glucose 271, calcium is 8.2, total bilirubin 0.5, AST 37, ALT is 22, alkaline phosphatase 74, total protein 6.1, albumin 3.0, amylase 606, lipase 218. PT of 13.3, PTT 23.9. UA, pH is 5.0, specific gravity is 1.020, 15 mg/dL protein, all else is essentially negative. Stool is positive for occult blood. IMAGING STUDIES: CT abdomen and pelvis was performed with oral contrast, which did show moderate colonic wall thickening, inflammatory changes from distal transverse colon through the proximal rectum, filling defect in the duodenal bulb. ASSESSMENT AND PLAN: The patient is an 82-year-old woman here with advanced dementia, asthenia with colitis and gastrointestinal bleed with a history of diabetes mellitus type 2 and hypertension. 1. We will get General Surgery consult for gastrointestinal bleed. 2. We will follow hemoglobin. No need for transfusion at this point. 3. She has acute renal failure likely except for chronic kidney disease stage 3. We will follow clinically and give IV fluid hydration. She is clinically dehydrated. 4. DVT prophylaxis with SCDs. 5. Full code for now. 6. We will continue IV antibiotics. We will treat with Zosyn for now. Time spent on 03/18/2018 is 45 minutes. Silverio Quiñonez MD DR: UBALDO/jewel JOB# [id number]
--- NOTE | 2018-03-18 11:10 | NUR ---
DISCHARGE PLAN CM VISITED WITH PATIENT AND DAUGHTER CONCERNING PATIENTS DISCHARGE PLAN AND NEED. PATIENT IS STILL LIVING @ HOME WITH HER OTHER DAUGHTER. PATENTS DAUGHTER STATED PATIENT IS STILL ROLON INDEPENDENT ON ADLS AND USES HER WALKER FOR AMBULATION ASSISTANCE. SHE ALSO HAS A SHOWER CHAIR AND BED SIDE COMMODE IN PLACE @ HOME WELL. PATIENT CURRENTLY HAS [facility] FOR NURSING HOME AND PHYSICAL THERAPY SERVICES IN PLACE. PATIENT HAS BEEN IN [facility] IN THE PAST DUE TO WEAKNESS, HOWEVER THE DAUGHTER THAT IS @ PATIENTS BEDSIDE DOES NOT ASSIST IN MAKING HER MOTHERS DISCHARGE PLANNING DECISIONS. THE DAUGHTER THAT PATIENT CURRENTLY LIVES WITH WORKS @ THE [facility] ADMISSION DEPARTMENTS NIGHTS AND IS CURRENTLY @ HOME SLEEPING. SO CM REACHED OUT TO [facility] AND SPOKE TO YOBANI HANNA REGARDING PATIENTS HOSPITAL ADMISSION. YOBANI STATED THAT [facility] WILL FOLLOW PATIENT UPON HOSPITAL DISCHARGE UNLESS HER DISCHARGE PLANNING CHANGES. CM WILL CONTINUE TO FOLLOW PATIENTS PLAN OF CARE AND FOR FURTHER DISCHARGE PLANNING NEEDS. CURRENT GOAL FOR PATIENT IS TO DISCHARGE BACK HOME WITH DAUGHTER TO ROUTINE CARE WITH CURRENT SERVICE IN PLACE.
[2018-03-18 11:23] VITALS: BP 135/58
[2018-03-18] MEDS: TYLENOL PO PRN (15:27)
--- NOTE | 2018-03-18 16:11 | NUR ---
STATUS PT IN BED AT THIS TIME. PT SHOWING SIGNS OF CONFUSION. PT HAS NOT TRIED TO GET OUT OF BED. WILL CONT TO MONITOR CALL LIGHT IN REACH
[2018-03-18 16:58] VITALS: BP 128/58
--- NOTE | 2018-03-18 18:50 | NUR ---
BEDSIDE REPORT RECEIVED FROM JACQUES TREVIZO. PATIENT LYING IN BED WITH EYES CLOSED. RESPIRATIONS UNLABORED. SKIN WARM AND DRY. 24G IV PRESENT IN LEFT HAND SALINE LOCKED. MIDLINE PRESENT IN RIGHT AC WITH NS INFUSING AT 125CC/HR. DRESSING CLEAN DRY AND INTACT. PERSAUD PRESENT AND DRAINING LIGHT EDDIE URINE. SCDS PRESENT ON BILATERAL LOWER EXTREMITIES. PATIENT IS NPO EXCEPT ICE CHIPS AND MEDICATIONS. NO DISTRESS NOTED AT PRESENT. SIDE RAILS UP X3. BED ALARM ON.
--- NOTE | 2018-03-18 20:00 | NUR ---
PATIENT REMAINS LYING IN BED WITH EYES CLOSED. NO DISTRESS NOTED. RESPIRATIONS UNLABORED. PATIENT REPOSITIONS HERSELF. SR UP X3. CALL LIGHT WITHIN REACH.
[2018-03-18] MEDS: DESYREL PO SCH (21:00)
[2018-03-18] MEDS: DONEPEZIL HCL PO SCH (21:00)
[2018-03-18 21:52] VITALS: BP 139/55
[2018-03-18] MEDS: ZYPREXA ZYDIS SL SCH (22:09)
--- NOTE | 2018-03-18 22:10 | NUR ---
PATIENTS DAUGHTER REPORTS THAT PATIENT NO LONGER TAKING DONEZEPRIL OR TRAZEDONE. REQUEST PATIENT NOT TO BE GIVEN THESE MEDS. MEDS NOT GIVEN.
[2018-03-19] VITALS (7 sets, daily range): BP systolic 116–154; BP diastolic 52–66
--- NOTE | 2018-03-19 00:05 | NUR ---
PATIENT INCONTINENT OF LARGE AMOUNT LOOSE STOOL WITH MODERATE RED BLOOD NOTED. BUTTOCKS AND COCCYX FREE OF SKIN BREAKDOWN OR REDNESS. BARRIER CREAM APPLIED. LINENS CHANGED. PATIENT AWAKE AND COOPERATIVE. SR UP X3. BED ALARM ON. SCDS ON BILATERALLY.
[2018-03-19] MEDS: TYLENOL PO PRN ×2 (01:42→19:47)
--- NOTE | 2018-03-19 02:30 | NUR ---
TEMP RECHECKED WITH RESULTS 99.7 AX.
[2018-03-19] MEDS: NS 1000ML 1,000 ML IV SCH ×3 (03:00→22:53)
--- NOTE | 2018-03-19 04:00 | NUR ---
PATIENT RESTING IN BED WITH EYES CLOSED. RESPIRATIONS UNLABORED. NO DISTRESS NOTED. SR UP X3. CALL LIGHT WITHIN REACH. BED ALARM ON.
[2018-03-19] MEDS ORDERED: WATER ONE (06:45)
[2018-03-19] MEDS ORDERED: DIPRIVAN IV ONE (06:48)
[2018-03-19] MEDS ORDERED: SUBLIMAZE ONE (06:48)
--- NOTE | 2018-03-19 07:00 | NUR ---
REPORT REPORT RECEIVED FROM BRUSHER TENDER
--- NOTE | 2018-03-19 07:20 | NUR ---
PT LEAVES FLOOR TO OR FOR EGD
--- NOTE | 2018-03-19 07:28 | PCM.EKG ---
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
[2018-03-19] MEDS: ZOSYN 2.25GM 2.25 GM in NS 100ML 100 ML IV SCH ×3 (07:32→19:47)
[2018-03-19] MEDS ORDERED: NS 1000ML 1,000 ML ONE (07:34)
--- NOTE | 2018-03-19 08:25 | NUR ---
PT RETURNED FROM OR AT THIS TIME FROM EGD
[2018-03-19] MEDS ORDERED: SUBLIMAZE IV PRN (08:30)
[2018-03-19] MEDS ORDERED: ZOFRAN IV PRN (08:30)
[2018-03-19] MEDS: COREG PO SCH ×2 (09:00→21:11)
[2018-03-19] MEDS: ZESTRIL PO SCH (10:18)
[2018-03-19] MEDS: PROTONIX IV IV SCH ×2 (10:18→21:11)
--- NOTE | 2018-03-19 12:57 | OPH ---
DATE OF SURGERY: 03/18/2018 PREOPERATIVE DIAGNOSIS: History of upper gastrointestinal bleed with acute blood loss. POSTOPERATIVE DIAGNOSIS: Duodenal lesion. SURGEON: Jonathon Connors DO CLINICAL OPERATIONS MANAGER: OR staff. ANESTHESIA: Total intravenous anesthesia by Carter Coughlin CRNA. PROCEDURES PERFORMED: Esophagogastroduodenoscopy with biopsy. SPECIMENS: Biopsy of duodenal lesion to path. ESTIMATED BLOOD LOSS: 7 mL. COUNTS: At the completion of the case, the counts were correct per OR staff. DESCRIPTION OF PROCEDURE: The patient is a very pleasant 82-year-old female known from previous evaluation. Prior to procedure, informed consent was obtained. At time of procedure, she was taken to the operative suite and placed in supine position. Timeout was completed. With adequate sedation, the esophagogastroduodenoscope was advanced transorally with pneumoinsufflation distally in the duodenum. The duodenum lesion that is fairly mobile is encountered. It is somewhat friable and adenomatous appearing in nature. Multiple biopsies were obtained for pathology. With adequate hemostasis noted, the camera was slowly withdrawn. Distal stomach was grossly normal. Retroflexed maneuver was performed. Cardia and fundus were grossly normal. Camera was reduced. Stomach was decompressed. Scope was slowly withdrawn. Distal, mid and proximal esophagus were grossly normal. The vocal cords were visualized within normal limits. Camera was removed. Procedure was discontinued. The patient tolerated the procedure well. No acute complications noted. Jonathon Connors DO DR: MACO/jewel JOB# [id number] CC: Silverio Castillo MD
--- NOTE | 2018-03-19 13:00 | CNH ---
DATE OF CONSULTATION: 03/18/2018 CHIEF COMPLAINT: Acute GI bleed. HISTORY OF PRESENT ILLNESS: This is an 82-year-old female who has apparently had more than 1 episode of dark stools; however, she has dementia, so it was difficult to clarify her exact symptom pattern. Currently, she is admitted to Med/Surg floor to the service of the hospitalist. There was concern based on CT finding and passing of dark stools consistent with possible upper GI bleed. It was also noted on the CT that she may have concerns for colitis. CT scan is reviewed. There are also concerns regarding colitis of the left side of the colon and also possible atypical changes in the duodenal bulb. PAST MEDICAL HISTORY: Per chart includes dementia that is advanced, poor functional status, diabetes, hypertension and history of internal hemorrhoid bleeding. PAST SURGICAL HISTORY: Includes an apparent appendectomy, , heart catheterization. ALLERGIES: No known drug allergies. HOME MEDICATIONS: Per list. INPATIENT MEDICATIONS: Per AUG. SOCIAL HISTORY: Per the chart. She lives with the family. FAMILY HISTORY: Essentially none available. REVIEW OF SYSTEMS: Unable to obtain. PHYSICAL EXAMINATION: GENERAL: This is a pleasant, but minimally conversational 82-year-old female in no acute distress. VITAL SIGNS: Last temperature is 98.6, pulse 89, respiration of 18, blood pressure 135/58. HEENT: Normocephalic, atraumatic with pale mucous membranes. NECK: Supple and soft. Trachea is midline. No JVD. HEART: Has regular rate and rhythm. LUNGS: Clear bilaterally. ABDOMEN: The bowel sounds are positive. Some tenderness on the left side of the abdomen on exam and a periumbilical hernia incision. EXTREMITIES: Show positive radial pulses, positive dorsal pedal pulses. NEUROLOGIC: She has no acute focal findings. SKIN AND INTEGUMENT: Warm and dry. LABORATORY STUDIES: On admission, WBC is 20.7. Repeat 14.3. Hemoglobin has gone from 14 to 11.8, platelet count has gone from 125 to 110. Chemistry shows change in BUN, in fact, BUN is stable. Creatinine has gone from 1.76 to 1.51. IMAGING STUDIES: CT scan shows thickened colon in the left side and also have possible foreign body versus other filling defect in the small bowel. SURGICAL ASSESSMENT: 1. Acute anemia, likely mixed etiology. 2. Probable colitis. 3. History of advanced dementia. PLAN: The patient is seen and examined. Chart was reviewed. She is NPO for her for an EGD tomorrow, however, depending on what the family's wishes are and how she looks on repeat evaluation in the morning by myself and the hospitalist, we will make appropriate changes in her plans. Jonathon Connors DO DR: MACO/jewel JOB# [id number] CC: Silverio Quiñonez MD MTDD
[2018-03-19] MEDS: FLEXERIL PO PRN (13:34)
--- NOTE | 2018-03-19 19:08 | NUR ---
REPORT REPORT RECEIVED FROM NYASIA Valle RN.
[2018-03-19] MEDS: ZYPREXA ZYDIS SL SCH (21:11)
[2018-03-19] MEDS: DONEPEZIL HCL PO SCH (21:11)
[2018-03-19] MEDS: DESYREL PO SCH (21:11)
[2018-03-20 00:08] VITALS: BP 140/59
[2018-03-20] MEDS: ZOSYN 2.25GM 2.25 GM in NS 100ML 100 ML IV SCH ×4 (01:50→23:00)
[2018-03-20 04:54] VITALS: BP 113/54
--- NOTE | 2018-03-20 06:53 | NUR ---
REPORT REPORT RECEIVED FROM ALFREDO Carias RN ASSUMED CARE OF PT
--- NOTE | 2018-03-20 06:53 | NUR ---
REPORT REPORT GIVEN TO TRESA HANNA.
[2018-03-20] MEDS: PROTONIX IV IV SCH ×2 (09:11→21:16)
[2018-03-20] MEDS: COREG PO SCH ×2 (09:12→21:17)
[2018-03-20] MEDS: ZESTRIL PO SCH (09:12)
[2018-03-20 09:15] VITALS: BP 155/74
[2018-03-20 10:02] LABS: BASOPHIL % 0.4 % (0.0-0.2); EOSINOPHIL # 0.5 10^3/uL (0.0-0.2); EOSINOPHIL % 4.3 % (0.0-5.0); HEMOGLOBIN 12.1 g/dL (12.0-15.0); LYMPHOCYTES # 1.9 10^3/uL (1.0-4.8); LYMPHOCYTES % 17.3 % (24.0-44.0); MEAN CELL HGB 29.4 pg (26-34); MEAN CORP VOLUME 89.3 fL (78-100); MEAN PLATELET VOLUME 12.2 fL (7.8-11.0); MONOCYTES # 0.6 10^3/uL (0.3-0.8); MONOCYTES % 5.8 % (5.0-12.0); NEUTROPHIL # 7.9 10^3/uL (1.8-7.7)
[2018-03-20 10:24] LABS: CALCIUM 7.6 mg/dL (8.4-10.5); CARBON DIOXIDE 18.9 mmol/L (20.0-32)
[2018-03-20] MEDS: FLEXERIL PO PRN (14:30)
[2018-03-20] MEDS: BACID PO SCH ×2 (14:42→18:32)
[2018-03-20] MEDS: NS 1000ML 1,000 ML IV SCH ×2 (14:42→19:00)
[2018-03-20 15:40] VITALS: BP 142/64
[2018-03-20] MEDS ORDERED: NS 500ML 500 ML IV ONE (16:08)
[2018-03-20] MEDS: TYLENOL PO PRN (16:30)
--- NOTE | 2018-03-20 18:35 | NUR ---
report received report from offgoing shift
[2018-03-20 19:56] VITALS: BP 139/61
[2018-03-20] MEDS: DESYREL PO SCH (21:16)
[2018-03-20] MEDS: DONEPEZIL HCL PO SCH (21:16)
[2018-03-20] MEDS: ZYPREXA ZYDIS SL SCH (21:17)
--- NOTE | 2018-03-20 22:15 | PNH ---
DATE: 03/19/2018 SUBJECTIVE: No significant changes. She is status post EGD. The EGD did show a mass in the duodenum that was not actively bleeding. No other acute changes. OBJECTIVE: VITAL SIGNS: T-max last 24 hours is 99.8, pulse of 81, respiratory rate 17, blood pressure 148/63, O2 saturation 94% on 1 liter nasal cannula. GENERAL: She is alert, in no acute distress, chronic ill-appearing lady. HEENT: Pupils equal, round, reactive to light. Sclerae are anicteric. Oropharynx is clear. Mucous membranes are moist. NECK: Supple, no lymphadenopathy. CARDIOVASCULAR: At time of exam is regular rate and rhythm. LUNGS: Clear bilaterally with shallow inspiratory effort. ABDOMEN: Soft. Bowel sounds are present, nontender to palpation. EXTREMITIES: No cyanosis, clubbing. She has trace lower extremity edema. NEUROLOGIC: Grossly nonfocal. ASSESSMENT AND PLAN: The patient is an 82-year-old woman here with a duodenal mass, gastrointestinal bleed, colitis, anemia due to chronic disease and some acute blood loss, acute renal failure secondary to dehydration with probably acute tubular necrosis with asthenia. 1. We will continue current IV antibiotics. 2. Gentle fluid hydration. 3. PT eval for mobility. 4. We will follow up pathology results. Continue on Protonix twice a day for now. 5. We will follow hemoglobin. No need for transfusion at this point. Time spent on 03/19/2018 is 25 minutes. Silverio Quiñonez MD DR: UBALDO/jewel JOB# [id number]
[2018-03-20 23:41] VITALS: BP 141/53
--- NOTE | 2018-03-21 01:56 | PNH ---
DATE: SUBJECTIVE: An 82-year-old female, in no acute distress. She was seen in room up to chair, seen with the nursing service. She reports she is tolerating some diet. OBJECTIVE: VITAL SIGNS: Last temperature reported today is 97.7, pulse 71, respiratory rate of 20, blood pressure 155/74. ABDOMEN: Bowel sounds are positive, soft. She has no significant tenderness on exam. LABORATORY DATA: Today show white count 11.0, hemoglobin 12.1, platelet count is 131. Chemistry today shows potassium 3.6, BUN is down to 11, creatinine is 1.07. Albumin is decreased to 2.2. ASSESSMENT: 1. Duodenal mass of uncertain etiology. Pathology is pending. 2. Colitis that is clinically improving. 3. History of dementia. PLAN: 1. The patient is seen and examined. Chart is reviewed. 2. Based on the family's wishes, this patient is likely an excellent candidate for hospice; however, if somehow they determine she will require significant intervention, it will likely be beneficial to transfer her to a tertiary facility. Otherwise, surgery will follow peripherally and as needed. Jonathon Connors DO DR: MACO/jewel JOB# [id number] CC: Silverio Quiñonez MD
[2018-03-21] MEDS: ZOSYN 2.25GM 2.25 GM in NS 100ML 100 ML IV SCH ×2 (03:54→09:59)
[2018-03-21 04:12] VITALS: BP 138/57
[2018-03-21] MEDS: NS 1000ML 1,000 ML IV SCH (05:00)
--- NOTE | 2018-03-21 06:42 | NUR ---
REPORT RECEIVED REPORT FROM HOUSING INSPECTOR. ASSUMED CARE OF PATIENT.
--- NOTE | 2018-03-21 06:42 | NUR ---
report report given to o/c shift
[2018-03-21] MEDS: ZESTRIL PO SCH (08:37)
[2018-03-21] MEDS: BACID PO SCH ×2 (08:37→14:00)
[2018-03-21] MEDS: PROTONIX IV IV SCH (08:37)
[2018-03-21] MEDS: COREG PO SCH (08:37)
--- NOTE | 2018-03-21 09:15 | NUR ---
UPDATE TO DISCHARGE PLANNING CM MADE A FOLLOW UP PHONE CALL TO PATIENTS DAUGHTER REGARDING PATIENTS DISCHARGE PLAN, NEED AND DR. DAMON'S RECOMMENDATION FOR FOR PATIENT TO DISCHARGE INTO A SNF FACILITY. PATIENT HAS BEEN @ [facility] IN THE PAST, HER DAUGHTER WAS JUST WORRIED IF HER MOTHER HAD ANY SKILLED DAYS AVAILABLE. CM THEN REACHED OUT TO [facility] AND SPOKE TO JOSE RAHMAN SUPERVISOR DRILLING AND SHOOTING WHO STATED SHE WOULD "RUN PATIENTS FINANCIAL" AND NOTIFY CM DEPARTMENT BACK. CM THEN FAX ALL PATIENTS APPLICABLE CLINICAL INFORMATION TO [facility] PER REQUEST. CURRENT GOAL FOR PATIENT IS TO DISCHARGE TO [facility] UNTIL STRONG ENOUGH TO RETURN BACK HOME WITH DAUGHTER TO ROUTINE CARE. CM WILL CONTINUE TO FOLLOW.
[2018-03-21 10:15] VITALS: BP 188/73
--- NOTE | 2018-03-21 13:00 | NUR ---
DISCHARGE PLAN UPDATE/[facility] ACCEPTANCE CM NOTIFIED BY Zachary SHULTZ RN @ [facility] OF PATIENT'S ACCEPTANCE. CM NOTIFIED Bird GRIGGS AUTOMOTIVE EXHAUST EMISSIONS TECHNICIAN NURSE.
[2018-03-21] MEDS ORDERED: ALEN70TA5 PO (13:17)
[2018-03-21] MEDS ORDERED: INSU3INS2 SUBCUT (13:17)
--- NOTE | 2018-03-21 13:17 | NUR ---
STATUS PT IS SITTING UP IN CHAIR WATCHING TELEVISION. PT EXHIBITS NO S/S OF DISTRESS. PT IS RECLINING IN CHAIR AND DENIES ANY NEEDS AT THIS TIME.
[2018-03-21] MEDS ORDERED: OLAN5TAB9 PO (13:20)
[2018-03-21] MEDS ORDERED: QUET50TA5 PO (13:21)
[2018-03-21] MEDS ORDERED: AMOX1TAB63 PO (13:45)
--- NOTE | 2018-03-21 13:51 | PRM.DC ---
Discharge Summary Date of Discharge: Mar 21, 2018 Reason for Visit: Altered mental status Patient History: Alzheimer's disease G8 BROTHER Cerebrovascular disorder 33 FATHER Hypertension G8 BROTHER G8 SISTER G8 SISTER 32 MOTHER 33 FATHER Unknown No Family History of: Asthma Chronic obstructive pulmonary disease Congestive heart failure Diabetes insipidus Diabetes mellitus Parkinson's disease History Present Illness: (1) Colitis Status: Acute ICD Code: K52.9 - Noninfective gastroenteritis and colitis, unspecified SNOMED: 14224898 (2) Duodenal mass Status: Chronic ICD Code: K31.89 - Other diseases of stomach and duodenum SNOMED: 060819114 (3) GI bleed Status: Resolved ICD Code: K92.2 - Gastrointestinal hemorrhage, unspecified SNOMED: 50557647 (4) Dementia Status: Chronic ICD Code: F03.90 - Unspecified dementia without behavioral disturbance SNOMED: 87129117 (5) Deafness in left ear Status: Chronic ICD Code: H91.92 - Unspecified hearing loss, left ear SNOMED: 59940302 General: Alert, Cooperative, No acute distress HEENT: PERRLA, EOMI Neck: Supple, No JVD Lungs: Clear to auscultation, Normal air movement Heart: Regular rate, Normal S1, Normal S2 Abdomen: Normal bowel sounds, Soft Extremities: No clubbing, No cyanosis Neuro: Normal speech, Sensation intact, Cranial nerves 3-12 NL Psych/Mental Status: Mood NL Results(Labs/Rad) Laboratory Tests Test 03/20/18 09:55 White Blood Count 11.0 10^3/uL Red Blood Count 4.11 10^6/uL Hemoglobin 12.1 g/dL Hematocrit 36.7 % Mean Corpuscular Volume 89.3 fL Mean Corpuscular Hemoglobin 29.4 pg Mean Corpuscular Hemoglobin Concent 33.0 g/dL Red Cell Distribution Width 14.0 % Platelet Count 131 10^3/uL Mean Platelet Volume 12.2 fL Neutrophils (%) (Auto) 72.0 % Lymphocytes (%) (Auto) 17.3 % Monocytes (%) (Auto) 5.8 % Neutrophils # (Auto) 7.9 10^3/uL Lymphocytes # (Auto) 1.9 10^3/uL Monocytes # (Auto) 0.6 10^3/uL Absolute Immature Granulocyte (auto 0.02 10^3 u/L Eosinophils % 4.3 % Basophils % 0.4 % Basophils # 0.0 10^3/uL Eosinophil Count 0.5 10^3/uL Sodium Level 149 mmol/L Potassium Level 3.6 mmol/L Chloride Level 117.0 mmol/L Carbon Dioxide Level 18.9 mmol/L Anion Gap 16.7 Blood Urea Nitrogen 11 mg/dL Creatinine 1.07 mg/dL Estimated GFR () 59.7 BUN/Creatinine Ratio 10.0 Glucose Level 161 mg/dL Calcium Level 7.6 mg/dL Total Bilirubin 0.4 mg/dL Aspartate Amino Transf (AST/SGOT) 22 U/L Alanine Aminotransferase (ALT/SGPT) 17 U/L Alkaline Phosphatase 66 U/L Total Protein 5.9 g/dL Albumin 2.2 g/dL Globulin 3.7 Percent Immature Gran (Cell Imm) 0.20 % Scheduled Alendronate Sodium (Alendronate Sodium), 70 MG PO 1 time weekly, (Reported) Amoxicillin/Potassium Clav (Augmentin 875-125 Tablet), 1 EACH PO BID Carvedilol (Carvedilol), 3.125 MG PO BID Dextran 70/Hypromellose (Artificial Tears Eye Drops), 1 DROP OP QID, (Reported) Insulin Degludec/Liraglutide (Xultophy 100 Unit-3.6MG/ml Pen), 16 UNITS SUBCUT HS, (Reported) Lisinopril (Lisinopril), 10 MG PO DAILY Olanzapine (Zyprexa Zydis), 10 MG SL HS Olanzapine (Olanzapine), 1 TAB PO ACB, (Reported) Omeprazole (Omeprazole), 20 MG PO DAILY Quetiapine Fumarate (Seroquel), 1 TAB PO BID, (Reported) Discontinued Medications Alendronate Sodium (Alendronate Sodium), 70 MG PO OT, (Reported) Discontinued Reason: Discontinue Donepezil Hcl (Aricept), 10 MG PO HS Discontinued Reason: No Longer Taking Insulin Degludec/Liraglutide (Xultophy 100 Unit-3.6MG/ml Pen), 16 UNIT SQ HS, ( Reported) Discontinued Reason: Discontinue Trazodone Hcl (Trazodone Hcl), 50 MG PO HS Discontinued Reason: No Longer Taking Sepsis Evaluation @ Discharge Vital Sign - Last 24 Hours 01/30/18 01/30/18 03/17/18 03/17/18 08:39 13:50 19:36 19:36 Temp 97.7 97.7 97.7 97.7 Pulse 63 63 78 79 Resp 16 16 Pulse Ox 96 O2 Delivery Room Air 03/17/18 19:42 Temp 97.7 97.7 Pulse 78 Resp 16 B/P (MAP) 143/64 (90) Pulse Ox 96 O2 Delivery Room Air Laboratory Tests Test 03/17/18 19:49 03/17/18 20:08 03/17/18 20:15 03/17/18 20:45 Bedside Stool Occult Blood POSITIVE White Blood Count 20.7 10^3/uL Red Blood Count 4.69 10^6/uL Hemoglobin 14.0 g/dL Hematocrit 42.4 % Mean Corpuscular Volume 90.4 fL Mean Corpuscular Hemoglobin 29.9 pg Mean Corpuscular Hemoglobin Concent 33.0 g/dL Red Cell Distribution Width 13.5 % Platelet Count 125 10^3/uL Mean Platelet Volume 12.3 fL Neutrophils (%) (Auto) 86.2 % Lymphocytes (%) (Auto) 5.3 % Monocytes (%) (Auto) 8.3 % Neutrophils # (Auto) 17.8 10^3/uL Lymphocytes # (Auto) 1.1 10^3/uL Monocytes # (Auto) 1.7 10^3/uL Absolute Immature Granulocyte (auto 0.03 10^3 u/L Eosinophils % 0.1 % Basophils % 0.0 % Basophils # 0.0 10^3/uL Eosinophil Count 0.0 10^3/uL Percent Immature Gran (Cell Imm) 0.10 % Differential Total Cells Counted 100 #CELLS Segmented Neutrophils 71 % Band Neutrophils 17 % Lymphocytes 6 % Monocytes 5 % Basophils 1 % Platelet Morphology NORMAL Prothrombin Time 13.3 SEC Prothrombin Time INR (Non-Therap) 1.3 Activated Partial Thromboplast Time 23.9 SEC Sodium Level 139 mmol/L Potassium Level 4.2 mmol/L Chloride Level 107.0 mmol/L Carbon Dioxide Level 20.6 mmol/L Anion Gap 15.6 Blood Urea Nitrogen 29 mg/dL Creatinine 1.76 mg/dL Estimated GFR () 33.6 BUN/Creatinine Ratio 16.0 Glucose Level 271 mg/dL Calcium Level 8.2 mg/dL Total Bilirubin 0.5 mg/dL Aspartate Amino Transf (AST/SGOT) 37 U/L Alanine Aminotransferase (ALT/SGPT) 22 U/L Alkaline Phosphatase 74 U/L Total Protein 6.1 g/dL Albumin 3.0 g/dL Globulin 3.1 Amylase Level 606 U/L Lipase 218 U/L Current Medications Medications (Trade) Dose Ordered Sig/Walker PRN Reason Start Time Stop Time Status Last Admin Acetaminophen/ Hydrocodone Bitart (Holly 7.5mg) 1 each STAT PRN PAIN 03/18/18 01:30 04/17/18 01:29 Course Sepsis Screening Results: Posi: NEGATIVE Sepsis Qualifier/Stage: NO DEFINITE RISK Vitals & review Data Vital Sign - Last 24 Hours 01/30/18 01/30/18 03/17/18 03/17/18 08:39 13:50 19:36 19:36 Temp 97.7 97.7 97.7 97.7 Pulse 63 63 78 79 Resp 16 16 Pulse Ox 96 O2 Delivery Room Air 03/17/18 19:42 Temp 97.7 97.7 Pulse 78 Resp 16 B/P (MAP) 143/64 (90) Pulse Ox 96 O2 Delivery Room Air Laboratory Tests Test 03/17/18 19:49 03/17/18 20:08 03/17/18 20:15 03/17/18 20:45 Bedside Stool Occult Blood POSITIVE White Blood Count 20.7 10^3/uL Red Blood Count 4.69 10^6/uL Hemoglobin 14.0 g/dL Hematocrit 42.4 % Mean Corpuscular Volume 90.4 fL Mean Corpuscular Hemoglobin 29.9 pg Mean Corpuscular Hemoglobin Concent 33.0 g/dL Red Cell Distribution Width 13.5 % Platelet Count 125 10^3/uL Mean Platelet Volume 12.3 fL Neutrophils (%) (Auto) 86.2 % Lymphocytes (%) (Auto) 5.3 % Monocytes (%) (Auto) 8.3 % Neutrophils # (Auto) 17.8 10^3/uL Lymphocytes # (Auto) 1.1 10^3/uL Monocytes # (Auto) 1.7 10^3/uL Absolute Immature Granulocyte (auto 0.03 10^3 u/L Eosinophils % 0.1 % Basophils % 0.0 % Basophils # 0.0 10^3/uL Eosinophil Count 0.0 10^3/uL Percent Immature Gran (Cell Imm) 0.10 % Differential Total Cells Counted 100 #CELLS Segmented Neutrophils 71 % Band Neutrophils 17 % Lymphocytes 6 % Monocytes 5 % Basophils 1 % Platelet Morphology NORMAL Prothrombin Time 13.3 SEC Prothrombin Time INR (Non-Therap) 1.3 Activated Partial Thromboplast Time 23.9 SEC Sodium Level 139 mmol/L Potassium Level 4.2 mmol/L Chloride Level 107.0 mmol/L Carbon Dioxide Level 20.6 mmol/L Anion Gap 15.6 Blood Urea Nitrogen 29 mg/dL Creatinine 1.76 mg/dL Estimated GFR () 33.6 BUN/Creatinine Ratio 16.0 Glucose Level 271 mg/dL Calcium Level 8.2 mg/dL Total Bilirubin 0.5 mg/dL Aspartate Amino Transf (AST/SGOT) 37 U/L Alanine Aminotransferase (ALT/SGPT) 22 U/L Alkaline Phosphatase 74 U/L Total Protein 6.1 g/dL Albumin 3.0 g/dL Globulin 3.1 Amylase Level 606 U/L Lipase 218 U/L Current Medications Medications (Trade) Dose Ordered Sig/Walker PRN Reason Start Time Stop Time Status Last Admin Acetaminophen/ Hydrocodone Bitart (Holly 7.5mg) 1 each STAT PRN PAIN 03/18/18 01:30 04/17/18 01:29 Plan Discharge Date: Mar 21, 2018 Dicharge DX: 1. GI bleed, 2. Colitis, 3. GI Bleed, 4. Severe protein calorie malnutritio Discharge Disposition: Stable Plan Medications per discharge list Diet as tolerated Activity as tolerated with fall precautions PT/OT at SNF Follow up with PCP 1-2 weeks Time spent 25 minutes STEVEN DAMON MD Mar 21, 2018 13:50
--- NOTE | 2018-03-21 15:00 | NUR ---
STATUS DISCONTINUED IV, MIDLINE, AND PERSAUD CATHETER. PT ASSISTED TO BEDSIDE COMMODE AND HAD A BOWEL MOVEMENT. PT CLEANED AND ASSISTED BACK INTO CHAIR WITH A CLEAN PAD. PATIENT DENIES ANY OTHER NEEDS AT THIS TIME.
[2018-03-21 16:14] VITALS: BP 188/73
--- NOTE | 2018-03-21 23:03 | PNH ---
DATE: 03/20/2018 SUBJECTIVE: No significant changes. She is very weak and required 2-person assist to get up. She is also not eating very well. No other acute changes. OBJECTIVE: VITAL SIGNS: T-max last 24 hours is 98.9, pulse of 87, respiratory rate is 18, blood pressure 154/66, O2 saturation 96% on 1 liter nasal cannula. GENERAL: She is alert, in no acute distress at time of exam. HEENT: Pupils equal, round and reactive to light. Sclerae are anicteric. Oropharynx is clear. Mucous membranes are moist. NECK: Supple, no lymphadenopathy. CARDIOVASCULAR: At time of exam was regular rate and rhythm. LUNGS: Decreased in the bases, shallow inspiratory effort. ABDOMEN: Soft. Bowel sounds are present, nontender to palpation. EXTREMITIES: No cyanosis, clubbing. She has trace lower extremity edema. NEUROLOGIC: Grossly nonfocal. LABORATORY DATA: CBC: White count 11.0, hemoglobin 12.1, platelets 131. Differential: 72% neutrophils, 17% lymphocytes, 6% monocytes. Sodium 149, potassium 3.6, chloride 117, CO2 is 19, BUN 11, creatinine 1.07, glucose 161, calcium is 7.6, total bilirubin 0.4, AST 22, ALT 17, alkaline phosphatase 66, total protein is 5.9, albumin 3.2. ASSESSMENT AND PLAN: The patient is an 82-year-old woman here with a duodenal mass, also with colitis, resolved acute renal failure secondary to acute tubular necrosis, severe protein-calorie malnutrition, asthenia and gastrointestinal bleed. 1. We will continue current intravenous antibiotics. 2. PT eval for mobility. 3. Encourage increased nutrition. We will get a Clostridium difficile toxin if she continues to have diarrhea. 4. Continue cardiovascular medications. 6. Deep venous thrombosis prophylaxis with sequential compression devices. Time spent on 03/20/2018 is 25 minutes. Silverio Quiñonez MD DR: UBALDO/jewel JOB# [id number]
== END 2018-03-21 15:25 | DRG 377 ==
LOC: EDBD 19:33 → ER 19:33 → MS 03-18 02:22
PROVIDERS: ADMIT Internal Medicine; ATTEND Internal Medicine
PROC: 0DB98ZX Excision of Duodenum, Via Natural or Artificial Opening Endoscopic, Diagnostic (ICD-10-PCS; principal; 2018-03-18)
DX: K92.2 Gastrointestinal hemorrhage, unspecified (principal); N17.0 Acute kidney failure with tubular necrosis; E43 Unspecified severe protein-calorie malnutrition; N18.6 End stage renal disease; K52.9 Noninfective gastroenteritis and colitis, unspecified; E86.0 Dehydration; K21.9 Gastro-esophageal reflux disease without esophagitis; I12.9 Hypertensive chronic kidney disease with stage 1 through stage 4 chronic kidney disease, or unspecified chronic kidney disease; E11.22 Type 2 diabetes mellitus with diabetic chronic kidney disease; F03.90 Unspecified dementia, unspecified severity, without behavioral disturbance, psychotic disturbance, mood disturbance, and anxiety; D64.9 Anemia, unspecified; K31.89 Other diseases of stomach and duodenum; D63.8 Anemia in other chronic diseases classified elsewhere; H91.92 Unspecified hearing loss, left ear; Z79.899 Other long term (current) drug therapy; Z90.49 Acquired absence of other specified parts of digestive tract; Z68.29 Body mass index [BMI] 29.0-29.9, adult; Z82.49 Family history of ischemic heart disease and other diseases of the circulatory system; Z82.3 Family history of stroke; Z82.0 Family history of epilepsy and other diseases of the nervous system
CPT/HCPCS: 36415; 43239; 74176; 80048; 80053; 81000; 82150; 82272; 82948; 83690; 85025; 85610; 85730; 86900; 87040; 88305; 93005; 96360; 96361; 97162; 99285; C9113; J0696; J2543; J3010; J3490; J7030; J7040; J7050; Q9963; 97116-GP; G8978-CJ; G8979-CI

== ENCOUNTER → 2018-05-29 | Outpatient (CLI) | payer OTHER ==
[~2018-05-29] MED LIST changes: +AMOX1TAB63 PO; +INSU3INS2 SUBCUT; -METF10003 PO; +METF10007 PO; +OLAN5TAB9 PO; +QUET50TA5 PO; +TRAZ-124 PO; -TRAZ50TA18 PO
--- NOTE | 2018-05-29 09:43 | DIREP ---
PROCEDURE:MRI BRAIN W&W/O COMPARISON:None. INDICATIONS:F03.91 DEMENTIA TECHNIQUE:A variety of imaging planes and parameters were utilized for visualization of suspected pathology. Images were performed without and with gadolinium contrast. FINDINGS: VENTRICLES:Normal. CEREBRUM:Old small-vessel ischemic changes in the deep white matter of both cerebral hemispheres. No intracranial mass, hemorrhage, midline shift or acute infarct. No restricted diffusion. No abnormal enhancement. CEREBELLUM:Normal. BRAINSTEM:Normal. BASAL CISTERNS:Normal. HEMORRHAGE:No MASS LESION:No ACUTE INFARCT:No SKULL:Normal. OTHER:Bilateral lens transplants. CONCLUSION: 1. Old small-vessel ischemic changes in the deep white matter of both cerebral hemispheres. MRI of the brain is otherwise normal with no acute abnormalities. Dictated by: Cholo Iraheta M.D. on 05/29/2018 at 09:35 AM
--- NOTE | 2018-05-29 14:51 | DIREP ---
PROCEDURE:US ABDOMEN LIMITED(SINGLE ORGAN-QUAD) COMPARISON:[facility], CT, CT ABD/PELVIS W/O, 03/17/2018, 11:56 PM. INDICATIONS:ELEVATED LIVER ENZYMES FINDINGS: CBD:0.2 cm GALLBLADDER:0.3 cm RIGHT KIDNEY:9.2 x 5.4 x 6.3 cm SPLEEN:10.9 x 4.5 x 10.4 cm PANCREAS:The pancreas is largely obscured by bowel gas shadowing. LIVER:Normal hepatic parenchymal architecture. No focal suspicious hepatic lesion. Scattered granulomata. Hepatopetal flow in the portal vein. GALLBLADDER:Normal appearing gallbladder without evidence for gallbladder wall thickening or pericholecystic fluid. BILIARY:There is no biliary ductal dilatation. RIGHT KIDNEY:Normal. No hydronephrosis. SPLEEN:Granulomas are identified. OTHER:Negative. No ascites is identified. CONCLUSION:Incidental note of splenic and hepatic granulomata. Dictated by: HPRA Physician on 05/29/2018 at 02:23 PM ld
== END | disposition home or self-care (01) ==
LOC: RAD 09:36
PROVIDERS: ATTEND Internal Medicine
DX: G93.89 Other specified disorders of brain (principal); F03.91 Unspecified dementia, unspecified severity, with behavioral disturbance; K75.3 Granulomatous hepatitis, not elsewhere classified; D73.89 Other diseases of spleen; R94.5 Abnormal results of liver function studies
CPT/HCPCS: 70553; 76705; A9579